=== PATIENT | female | born 1965 | race Caucasian/White ===

== ENCOUNTER 2023-07-25 10:17 | Outpatient (OUT) | payer OTHER, SELFPAY ==
--- NOTE | 2023-07-25 10:31 | US_ITS ---
[address] [address] Patient Name: NIDIA RICHTER MRN: [id number] date: 1965 Sex: F Assigned Patient Location: Current Patient Location: [facility] Accession/Order Number: [id number] Exam Date: 07/25/2023 10:32 Report Date: 07/25/2023 13:17 At the request of: ZULY GREENWOOD Procedure: US carotid duplex BI EXAMINATION: US carotid duplex BI HISTORY: Atherosclerotic Heart Disease I25.10 COMPARISON: No relevant comparison available. TECHNIQUE: Duplex Doppler ultrasound analysis of carotid and vertebral arteries. . Bilateral carotid arterial duplex examination was performed using B-mode, color flow and spectral analysis. Carotid stenosis is reported according to validated velocity parameters, similar to NASCET criteria. FINDINGS: RIGHT CAROTID ARTERY Moderate plaque, 81% flow stenosis mid bulb Subclavian: PSV: 55.5 cm/s cm/s EDV: 9.2 cm/s cm/s CCA: Prox: PSV: 35.9 cm/s cm/s EDV: 20.1 cm/s cm/s Mid: PSV: 35.4 cm/s cm/s EDV: 22.8 cm/s cm/s Distal: PSV: 34.3 cm/s cm/s EDV: 21.2 cm/s cm/s BULB: PSV: 24.4 cm/s cm/s EDV: 15.7 cm/s cm/s ICA: Prox: PSV: 41.4 cm/s cm/s EDV: 15.7 cm/s cm/s Mid: PSV: 33.2 cm/s cm/s EDV: 16.8 cm/s cm/s Distal: PSV: 38.7 cm/s cm/s EDV: 13.5 cm/s cm/s ECA: PSV: 43.8 cm/s cm/s EDV: 16.8 cm/s cm/s VERTEBRAL: PSV: 50.5 cm/s cm/s EDV: 0.0 cm/s cm/s, antegrade ICA/CCA ratio: PSV: 1.2 EDV: 0.7 LEFT CAROTID ARTERY Moderate Plaque Subclavian: PSV: cm/s EDV: CCA: Prox: PSV: 59.2 cm/s cm/s EDV: 27.4 cm/s Mid: PSV: 75.7 cm/s cm/s EDV: 34.0 cm/s Distal: PSV: 71.3 cm/s cm/s EDV: 26.3 cm/s BULB: PSV: 65.8 cm/s cm/s EDV: 24.1 cm/s ICA: Prox: PSV: 89.2 cm/s cm/s EDV: 33.5 cm/s Mid: PSV: 106.4 cm/s cm/s EDV: 40.2 cm/s Distal: PSV: 124.2 cm/s cm/s EDV: 46.7 cm/s ECA: PSV: 62.8 cm/s cm/s EDV: 14.4 cm/s VERTEBRAL: PSV: 83.8 cm/s cm/s EDV: 24.1 cm/s , antegrade ICA/CCA ratio: PSV: 1.7 EDV: 1.8 US/US carotid duplex BI IMPRESSION: 0-49% flow stenosis bilateral carotid arteries Spectral Doppler US Thresholds (Reference: Ousmane EG, et al. Radiology 2000; 214:247-252) Stenosis (%) PSV (cm/sec) VICA/VCCA 0-49 <150 <2.5 50-69 150-225 2.5-4.0 >70 >225 >4.0 Electronically authenticated by: LEXIE MEDINA Date: 07/25/2023 13:17
== END 2023-07-25 10:18 | disposition home or self-care (01) ==
LOC: US 10:20
PROVIDERS: PCP Internal Medicine; Visit Provider Nurse Practitioner
DX: Z12.31 Encounter for screening mammogram for malignant neoplasm of breast (principal); Z80.1 Family history of malignant neoplasm of trachea, bronchus and lung; I25.10 Atherosclerotic heart disease of native coronary artery without angina pectoris; I65.23 Occlusion and stenosis of bilateral carotid arteries; E78.01 Familial hypercholesterolemia
CPT/HCPCS: 77063; 77067; 93880

== ENCOUNTER 2023-07-25 10:22 | Outpatient (OUT) | payer OTHER, SELFPAY ==
--- NOTE | 2023-07-25 10:29 | MM_ITS ---
Patient Name: NIDIA RICHTER MR#: [id number] : 1965 Exam Date: 07/25/2023 Ordering Doctor: DR Mikael Marshall D.O. RADIOLOGY REPORT PROCEDURE: MM TOMOSYNTHESIS SCREENING BI COMPARISON: MG MAMM SCREEN 3D JAYLON CAD, 03/29/2021. MG MAMM SCREEN 3D JAYLON CAD, 04/14/2022. INDICATIONS: Screening Calculator Name NCI Breast Cancer Risk Assessment Tool 5 Year Breast Cancer Risk 1.00% Lifetime Breast Cancer Risk 5.60% Personal Breast Cancer No Personal Ovarian Cancer No Treatments None Family Cancers Father with lung cancer at age 64. LOCATION: [facility] BREAST COMPOSITION: Scattered areas fibroglandular density. FINDINGS: DIAGNOSTIC CATEGORY 1--NEGATIVE. NO CHANGE FROM COMPARISON ASSESSMENT. Scattered benign-appearing calcifications are present. Scattered benign-appearing lymph nodes are present. RIGHT BREAST: No significant suspicious finding. LEFT BREAST: No significant suspicious finding. RECOMMENDATIONS: ROUTINE MAMMOGRAM AND CLINICAL EVALUATION IN 12 MONTHS. PLEASE NOTE: A NORMAL MAMMOGRAM DOES NOT EXCLUDE THE POSSIBILITY OF BREAST CANCER. A CLINICALLY SUSPICIOUS PALPABLE LUMP SHOULD BE BIOPSIED. Dictated by: Christos Hedrick MD on 07/25/2023 at 13:05 Approved by: Christos Hedrick MD on 07/25/2023 at 13:07
== END 2023-07-25 10:23 | disposition home or self-care (01) ==
LOC: MAMMO 10:25
PROVIDERS: PCP Internal Medicine; Visit Provider Internal Medicine
DX: Z12.31 Encounter for screening mammogram for malignant neoplasm of breast (principal); Z80.1 Family history of malignant neoplasm of trachea, bronchus and lung
CPT/HCPCS: 77063; 77067

== ENCOUNTER 2023-10-12 08:47 | Outpatient (OUT) | payer OTHER, SELFPAY ==
--- OUTSIDE RECORDS SUMMARY | 2023-10-12 08:56 | XMS_ITS | CCD ---
Author Organization [facility] Inform ion Partnership [facility] Care Team Providers Care Geology Instructor Name Role Phone MIKAEL MCCORMICK Referring Unavailable ROLANDO, MIKAEL Primary Care Unavailable UNKNOWN, PROVIDER Attending Unavailable UNKNOWN, PROVIDER Admitting Unavailable BALL, DR REAL Admitting Unavailable BALL, DR REAL Attending Unavailable BALL, DR REAL Primary Care Unavailable BALL, DR REAL Consulting Unavailable ZIEBER, DR WILLY Dinh Consulting Unavailable MOUKARBEL, DR BOURNE Admitting Unavailable MOUKARBEL, DR BOURNE Attending Unavailable BALL, DR REAL Primary Care Unavailable MOUKARBEL, DR BOURNE Consulting Unavailable BALL, DR REAL Admitting Unavailable BALL, DR REAL Attending Unavailable BALL, DR REAL Primary Care Unavailable BALL, DR REAL Consulting Unavailable MOUKARBEL, DR BOURNE Admitting Unavailable MOUKARBEL, DR BOURNE Attending Unavailable BALL, DR REAL Primary Care Unavailable Rolando, Mikael Unavailable TAYLA BECKER Attending Unavailable Allergies Allergy Classification Reported Allergen(s) Allergy Type Date of Onset Reaction(s) Facility (1 source) HMG-CoA reductase inhibitor Drug allergy Unknown [facility] Other Medications Current Medications Medication Drug Class(es) Dates Sig (Normalized) Sig (Original) amLODIPine 5 mg oral tablet (3 sources) Dihydropyridine Calcium Channel Quinn Start: 08-09-2023 take 5 mg by mouth once daily Amlodipine Active 5 MG PO Daily August 09, 2023 12:00am take 1 tablet by sharon th every twenty-four hours amLODIPine Besylate 5 MG 1 tablet Orally Once a day Active clopidogrel 75 mg oral tablet (3 sources) [id number] Platelet Inhibitor Start: 08-09-2023 take 75 mg by mouth once daily Clopidogrel Active 75 MG PO Daily August 09, 2023 12:00am take 1 tablet by sharon th every twenty-four hours Clopidogrel Bisulfate 75 MG 1 tablet Orally Once a day Active ezetimibe 10 mg oral tablet (3 sources) Dietary Cholesterol Absorption Inhibitor Start: 08-09-2023 take 10 mg by mouth once daily Ezetimibe Active 10 MG PO Daily August 09, 2023 12:00am take 1 tablet by sharon th every twenty-four hours Zetia 10 MG 1 tablet Orally Once a day Active 24 hr isosorbide mononitrate 120 mg extended release oral tablet (3 sources) Nitrate Vasodilator Start: 08-10-2023 take 120 mg by mouth once daily Isosorbide Mononitrate Active 120 MG PO Daily August 10, 2023 12:00am Imdur Active 24 hr metoprolol succinate 50 mg extended release oral tablet (3 sources) beta-Adrenergic Quinn Start: 08-09-2023 take 50 mg by mouth once daily Metoprolol Succinate Active 50 MG PO Daily August 09, 2023 12:00am take 1 tablet by sharon th every twenty-four hours Metoprolol Succinate ER 50 MG 1 tablet Orally Once a day Active 12 hr ranolazine 500 mg extended release oral tablet (3 sources) Anti-anginal Start: 08-10-2023 take 500 mg by mouth every twelve hours Ranolazine Active 500 MG PO Every 12 hours August 10, 2023 12:00am Ranexa Active rosuvastatin calcium 40 mg oral tablet (3 sources) HMG-CoA Reductase Inhibitor Start: 08-09-2023 take 40 mg by mouth once daily Rosuvastatin Active 40 MG PO Daily August 09, 2023 12:00am take 1 tablet by sharon th every twenty-four hours Crestor 40 MG 1 tablet Orally Once a day Active Problems Problem Classification Problem Date Documented Da te Episodic/Chronic Chronic obstructive pulmonary disease and bronchiectasis (2 sources) Chronic bronchitis; Translations: [Unspecified chronic bronchitis] 08-08-2023 Chronic Conduction disorders (2 sources) Left bundle-branch block, unspecified; Translations: [Left bundle-branch block, unspecified] Onset: 02-27-2022 Chronic Coronary atherosclerosis and other heart disease (8 sources) Coronary arteriosclerosis; Translations: [Atherosclerotic heart disease of enterprise coronary artery without angina pectoris] Onset: 08-06-2023 Chronic Disorders of lipid metabolism (13 sources) Mixed hyperlipidemia; Translations: [Pure hypercholesterolemi a] Onset: 11-19-2021 Chronic Essential hypertension (10 sources) Hypertensive disorder; Translations: [Essential (primary) hypertension] Onset: 02-27-2022 Chronic Occlusion or stenosis of precerebral arteries (5 sources) Right carotid artery stenosis; Translations: [Occlusion and stenosis of right carotid artery] Onset: 06-23-2022 Chronic Other circulatory disease (3 sources) Stricture of artery; Translations: [Stricture of artery] Onset: 08-06-2023 Chronic Other circulatory disease (3 sources) Stricture of artery; Translations: [Stricture of artery] Onset: 06-23-2022 Chronic Other circulatory disease (1 source) Subclavian artery stenosis; Translations: [Stricture of artery] 08-09-2023 Chronic Other nutritional; endocrine; and metabolic disorders (1 source) Overweight; Translations: [Overweight] 08-10-2023 Episodic Other nutritional; endocrine; and metabolic disorders (1 source) Overweight; Translations: [Overweight] 08-10-2023 Episodic Other screening for suspected conditions (not mental disorders or infectious disease) (5 sources) Encounter for screening mammogram for malignant neoplasm of breast; Translations: [ENC SCR MAMMO MALIG NEOPLASM BREAST] Onset: 04-14-2022 Episodic Peripheral and visceral atherosclerosis (5 sources) Intermittent claudication of bilateral lower limbs co-occurrent and due to atherosclerosis; Translations: [Atherosclerosis of enterprise arteries of extremities with intermittent claudication, bilateral legs] Chronic Residual codes; unclassified (1 source) Family history of malignant neoplasm of trachea, bronchus and lung; Translations: [FAM HX MALIG NEOPLSM TRACH BRON LNG] Onset: 04-19-2022 Episodic Sprains and strains (2 sources) Strain of rotator cuff of shoulder; Translations: [Strain of muscle(s) and tendon(s) of the rotator cuff of unspecified shoulder, initial encounter] 08-10-2023 Episodic Substance-related disorders (7 sources) Tobacco user; Translations: [Nicotine dependence, cigarettes, uncomplicated] Chronic Results Test Name Value Interpretation Reference Range Facil ity Office Visiton 08-06-2023 Follow-up visit [id number] Kalee Richter 1965 F Date Provider Department Center 08/06/2023 Shelly-TAYLA BECKER [facility] Family History Problem Relation Age of Onset Hypertension Father Lung cancer Father Coronary artery disease Brother Heart failure Brother Atrial fibrillation Brother Family Status - Relation Status Age at Father Brother Level of Service:47510 [place] OFFICE/OUTPATIENT ESTABLISHED LOW MDM 20 MIN Normal [facility] 36on 07-30-2023 36 Regarding carotid duplex performed on 07/25/2023: MATTHEW Barahona MA Let her know carotid US looks good- no concerns, continue all meds Patient has apt with Dr. Becker on 08/06/2023. Normal [facility] MG MAMM SCREEN 3D JAYLON CADon 04-14-2022 MG MAMM SCREEN 3D JAYLON CAD Patient: KALEE RICHTER Exam Date: 04/14/2022 : 1965 Gender:F Ordering : DR MIKAEL MCCORMICK D.O. Admission #: [id number] Family : Order #: [id number] CLICK HERE TO VIEW EXAM RADIOLOGY REPORT PROCEDURE: MAMMOGRAM SCREENING 3D BILATERAL CAD COMPARISON: MG MAMM SCREEN 3D JAYLON CAD, 03/29/2021. MG MAMM JAYLON SCRN W CAD DIG, 04/25/2016. INDICATIONS: Screening mammography Calculator Name NCI Breast Cancer Risk Assessment Tool 5 Year Breast Cancer Risk 0.90% Lifetime Breast Cancer Risk 5.70% Personal Breast Cancer No Personal Ovarian Cancer No Treatments None Family Cancers Father with lung cancer at age 64. LOCATION: The BREAST COMPOSITION: Scattered areas fibroglandular density. FINDINGS: DIAGNOSTIC CATEGORY 1--NEGATIVE. RIGHT BREAST: No significant suspicious finding. No significant change has occurred. LEFT BREAST: No significant suspicious finding. No significant change has occurred. RECOMMENDATIONS: ROUTINE MAMMOGRAM AND CLINICAL EVALUATION IN 12 MONTHS. PLEASE NOTE: A NORMAL MAMMOGRAM DOES NOT EXCLUDE THE POSSIBILITY OF BREAST CANCER. A CLINICALLY SUSPICIOUS PALPABLE LUMP SHOULD BE BIOPSIED. Dictated by: Willy Duarte M.D. on 04/17/2022 at 10:39 Approved by: Willy Duarte M.D. on 04/17/2022 at 10:47 Normal The [facility] AUTO DIFFon 04-08-2022 BASO # 0.1 103/ul Normal 0.0-0.1 [facility] Comment on above: Performed By: #### C BC #### Laboratory [address] [address] [address] Malick Larkin Basophils/100 WBC (Bld) 0.9 % Normal 0.2-2.0 [facility] Comment on above: Performed By: #### C BC #### Laboratory [address] [place] [address] Dr. Malick Larkin EO # 0.1 103/ul Normal 0.0-0.7 [facility] Comment on above: Performed By: #### C BC #### Laboratory [address] [place] [address] Dr. Malick Larkin Eosinophils/100 WBC (Bld) 1.3 % Normal 0.9-7.0 [facility] Comment on above: Performed By: #### C BC #### Laboratory [address] [place] [address] Dr. Malick Larkin Erythrocyte distribution width (RBC) [Ratio] 13.2 % Normal 11.0-15.0 [facility] Comment on above: Performed By: #### C BC #### Laboratory [address] [place] [address] Dr. Malick Larkin Hematocrit (Bld) [Volume fraction] 44.7 % Normal 36.0-48.0 [facility] Comment on above: Performed By: #### C BC #### Laboratory [address] [place] [address] Dr. Malick Larkin Hemoglobin (Bld) [Mass/Vol] 15.0 g/dL Normal 12.0-16.0 [facility] Comment on above: Performed By: #### C BC #### Laboratory [address] [place] [address] Dr. Malick Larkin IG # 0.02 10e3/ul Normal 0.00-0.03 [facility] Comment on above: Performed By: #### C BC #### Laboratory [address] [place] [address] Dr. Malick Larkin IG % 0.3 % Normal 0.0-0.5 [facility] Comment on above: Performed By: #### C BC #### Laboratory [address] [place] [address] Dr. Malick Larkin LYMPH # 2.1 103/ul Normal 1.2-3.8 [facility] Comment on above: Performed By: #### C BC #### Laboratory [address] [place] [address] Dr. Malick Larkin Lymphocytes/100 WBC (Bld) 31.2 % Normal 20.5-60.0 [facility] Comment on above: Performed By: #### C BC #### Laboratory [address] [place] [address] Dr. Malick Larkin MANUAL DIFF REQ NO Normal [facility] Comment on above: Performed By: #### C BC #### Laboratory [address] [place] [address] Dr. Malick Larkin MCH (RBC) [Entitic mass] 28.8 pg Normal 26.7-34.0 [facility] Comment on above: Performed By: #### C BC #### Laboratory [address] [place] [address] Dr. Malick Larkin MCHC (RBC) [Mass/Vol] 33.6 g/dL Normal 29.9-35.2 [facility] Comment on above: Performed By: #### C BC #### Laboratory [address] [place] [address] Dr. Malick Larkin MCV (RBC) [Entitic vol] 86.0 fL Normal 81.0-99.0 [facility] Comment on above: Performed By: #### C BC #### Laboratory [address] [place] [address] Dr. Malick Larkin MONO # 0.6 103/ul Normal 0.3-0.8 [facility] Comment on above: Performed By: #### C BC #### Laboratory [address] [place] [address] Dr. Malick Larkin Monocytes/100 WBC (Bld) 8.2 % Normal 1.7-12.0 The Comment on above: Performed By: #### C BC #### Laboratory [address] [place] [address] Dr. Malick Larkin NEUT # 4.0 103/ul Normal 1.4-6.5 [facility] Comment on above: Performed By: #### C BC #### Laboratory [address] [address] [address] Malick Larkin Neutrophils/100 WBC (Bld) 58.1 % Normal 43.0-75.0 [facility] Comment on above: Performed By: #### C BC #### Laboratory [address] [place] [address] Dr. Malick Larkin Platelet mean volume (Bld) [Entitic vol] 10.1 fL Normal 9.5-13.5 [facility] Comment on above: Performed By: #### C BC #### Laboratory [address] [place] [address] Dr. Malick Larkin PLT 158 103/ul Normal 150-450 [facility] Comment on above: Performed By: #### C BC #### Laboratory [address] [place] [address] Dr. Malick Larkin RBC 5.20 106/ul Normal 4.20-5.40 [facility] Comment on above: Performed By: #### C BC #### Laboratory [address] [place] [address] Dr. Malick Larkin WBC 6.8 103/ul Normal 4.0-11.0 [facility] Comment on above: Performed By: #### C BC #### Laboratory [address] [place] [address] Dr. Malick Larkin PROF 14(COMP METB)on 022 Albumin [Mass/Vol] 3.6 g/dL Normal 3.4-5.0 [facility] Comment on above: Performed By: #### C MP #### Laboratory [address] [place] [address] Dr. Malick Larkin Albumin/Globulin [Mass ratio] 0.8 {ratio} Normal [facility] Comment on above: Performed By: #### C MP #### Laboratory [address] [place] [address] Dr. Malick Larkin ALP [Catalytic activity/Vol] 89 U/L Normal 46-116 [facility] Comment on above: Performed By: #### C MP #### Laboratory [address] [address] [address] Malick Larkin ALT [Catalytic activity/Vol] 20 U/L Normal 14-59 The Comment on above: Performed By: #### C MP #### Laboratory [address] [address] [address] Malick Larkin Anion gap [Moles/Vol] 9.5 mmol/L Normal [facility] Comment on above: Performed By: #### C MP #### Laboratory [address] [address] [address] Malick Larkin AST [Catalytic activity/Vol] 16 U/L Normal 15-37 The Comment on above: Performed By: #### C MP #### Laboratory [address] [place] [address] Dr. Malick Larkin Bilirubin [Mass/Vol] 0.8 mg/dL Normal 0.2-1.0 [facility] Comment on above: Performed By: #### C MP #### Laboratory [address] [place] [address] Dr. Malick Larkin Calcium [Mass/Vol] 9.0 mg/dL Normal 8.5-10.1 [facility] Comment on above: Performed By: #### C MP #### Laboratory [address] [place] [address] Dr. Malick Larkin Chloride [Moles/Vol] 102 mmol/L Normal 98-107 The Comment on above: Performed By: #### C MP #### Laboratory [address] [place] [address] Dr. Malick Larkin CO2 [Moles/Vol] 28.3 mmol/L Normal 21.0-32.0 [facility] Comment on above: Performed By: #### C MP #### Laboratory [address] [address] [address] Malick Larkin Creatinine [Mass/Vol] 0.77 mg/dL Normal 0.55-1.02 [facility] Comment on above: Performed By: #### C MP #### Laboratory [address] [address] [address] Malick Larkin EGFR-AF SAMOAN >60 Normal >=60 [facility] Comment on above: Performed By: #### C MP #### Laboratory [address] [address] [address] Malick Larkin EGFR-NON AF SAMOAN >60 Normal >=60 [facility] Comment on above: Performed By: #### C MP #### Laboratory [address] [address] [address] Malick Larkin Globulin (S) [Mass/Vol] 4.3 g/dL Normal [facility] Comment on above: Performed By: #### C MP #### Laboratory [address] [place] [address] Dr. Malick Larkin Glucose [Mass/Vol] 93 mg/dL Normal 74-106 [facility] Comment on above: Performed By: #### C MP #### Laboratory [address] [place] [address] Dr. Malick Larkin Potassium [Moles/Vol] 4.8 mmol/L Normal 3.5-5.1 [facility] Comment on above: Performed By: #### C MP #### Laboratory [address] [place] [address] Dr. Malick Larkin Protein [Mass/Vol] 7.9 g/dL Normal 6.4-8.2 [facility] Comment on above: Performed By: #### C MP #### Laboratory [address] [place] [address] Dr. Malick Larkin Sodium [Moles/Vol] 135 mmol/L Critically low 136-145 [facility] Comment on above: Performed By: #### C MP #### Laboratory [address] [address] [address] Malick Larkin Urea nitrogen [Mass/Vol] 11.0 mg/dL Normal 7.0-18.0 [facility] Comment on above: Performed By: #### C MP #### Laboratory [address] [address] [address] Malick Larkin Urea nitrogen/Creatinine [Mass ratio] 14.3 mg/mg Normal [facility] Comment on above: Performed By: #### C MP #### Laboratory [address] [address] [address] Malick Larkin LIPID PROFILEon 11-19-2021 CHOL-HDL RATIO NORM SEE BELOW Normal [facility] Comment on above: Result Comment: 3.3 - 4.4 LOW RISK 4.4 - 7.1 AVERAGE RISK 7.1 - 11.0 MODERATE RISK >11.0 HIGH RISK Performed By: #### L IPID #### Laboratory [address] [address] [address] Malick Larkin Cholesterol [Mass/Vol] 136 mg/dL Normal <=200 [facility] Comment on above: Performed By: #### L IPID #### Laboratory [address] [address] [address] Malick Larkin Cholesterol in HDL [Mass/Vol] 36 mg/dL Critically low 40-60 [facility] Comment on above: Performed By: #### L IPID #### Laboratory [address] [address] [address] Malick Larkin Cholesterol in LDL [Mass/Vol] 75.0 mg/dL Normal [facility] Comment on above: Performed By: #### L IPID #### Laboratory [address] [address] [address] Malick Larkin Cholesterol.total/C holesterol in HDL [Mass ratio] 3.8 {ratio} Normal [facility] Comment on above: Performed By: #### L IPID #### Laboratory [address] [address] [address] Malick Larkin HDL NORMAL > or = 60 mg/dl - LOW CARDIOVASCULAR RISK <40 mg/dl - HIGH CARDIOVASCULAR RISK Normal [facility] Comment on above: Performed By: #### L IPID #### Laboratory [address] [id number] Malick Larkin LDL CALC NORMAL SEE BELOW Normal [facility] Comment on above: Result Comment: <100 mg/dl OPTIMAL 100 - 129 mg/dl NEAR OR ABOVE OPTIMAL 130 - 159 mg/dl BORDERLINE HIGH 160 - 189 mg/dl HIGH >190 mg/dl VERY HIGH Performed By: #### L IPID #### Laboratory [address] [address] [address] Malick Larkin Triglyceride [Mass/Vol] 125 mg/dL Normal <=150 [facility] Comment on above: Performed By: #### L IPID #### Laboratory [address] [place] [address] Dr. Malick Larkin VLDL CALC 25.0 mg/dL Normal [facility] Comment on above: Performed By: #### L IPID #### Laboratory [address] [place] [address] Dr. Malick Larkin Vital Signs Date Time Vital Sign Value Performing Clinician Facility 08-10-2023 08:45-0400 Body height 165.1 cm [facility] 08-10-2023 08:45-0400 Body mass index (BMI) [Ratio] 28 kg/m2 [facility] 08-10-2023 08:45-0400 Body weight 76.37 kg [facility] 08-10-2023 08:45-0400 Diastolic blood pressure 83 mm[Hg] [facility] 08-10-2023 08:45-0400 Heart rate 62 /min [facility] 08-10-2023 08:45-0400 Respiratory rate 12 /min [facility] 08-10-2023 08:45-0400 Systolic blood pressure 127 mm[Hg] [facility] 02-08-2023 08:30-0400 Body height 165.1 cm Mikael Ball Other [place] [facility] Other 02-08-2023 08:30-0400 Body mass index (BMI) [Ratio] 27.59 kg/m2 Mikael Ball Other [place] [facility] Other 02-08-2023 08:30-0400 Body weight 75.21 kg Mikael Ball Other [place] [facility] Other 02-08-2023 08:30-0400 Diastolic blood pressure 77 mm[Hg] Mikael Ball Other [facility] Other 02-08-2023 08:30-0400 Respiratory rate 12 /min Mikael Ball Other [facility] Other 02-08-2023 08:30-0400 Systolic blood pressure 124 mm[Hg] Mikael Ball Other [facility] Other 08-08-2022 16:30-0400 Body height 165.1 cm Mikael Ball Other [facility] Other 08-08-2022 16:30-0400 Body mass index (BMI) [Ratio] 28.12 kg/m2 Mikael Ball Other [facility] Other 08-08-2022 16:30-0400 Body weight 76.66 kg Mikael Ball Other [facility] Other 08-08-2022 16:30-0400 Diastolic blood pressure 74 mm[Hg] Mikael Ball Other [facility] Other 08-08-2022 16:30-0400 Respiratory rate 12 /min Mikael Ball Other [facility] Other 08-08-2022 16:30-0400 Systolic blood pressure 112 mm[Hg] Mikael Ball Other [facility] Other Encounters Encounter Date Encounter Type Care Provider Facility Start: 08-10-2023 End: 08-10-2023 ambulatory [facility] Work Phone: Start: 08-10-2023 End: 08-10-2023 Patient encounter procedure [facility] Work Phone: Start: 08-06-2023 End: 08-06-2023 ambulatory [facility] Start: 02-08-2023 End: 02-08-2023 ambulatory Mikael Mccormick Other [facility] Other Start: 02-08-2023 Encounter for genera l adult medical examination without abnormal findings Mikael Mccormick [facility] Start: 02-08-2023 Periodic preventive med est patient 40-64yrs Mikael Mccormick [facility] Start: 08-08-2022 End: 08-08-2022 ambulatory Mikael Mccormick Other [facility] Other Start: 08-08-2022 Office outpatient vi sit 25 minutes Mikael Mccormick [facility] Start: 04-14-2022 End: 04-15-[address] MIKAEL MCCORMICK Facility:[facility] Start: 04-12-2022 Encounter for genera l adult medical examination without abnormal findings DR MIKAEL MCCORMICK [facility] Start: 04-08-2022 End: 04-09-[address] MIKAEL MCCORMICK Facility:[facility] Start: 04-08-2022 End: 04-09-2022 Encounter for general adult medical examination without abnormal findings DR MIKAEL MCCORMICK Facility:[facility] Start: 11-19-2021 End: 11-20-[address] TAYLA BECKER Facility:[facility] Start: 06-03-[address] TAYLA BECKER Fac ility:[facility] Start: 03-14-2021 End: 03-15-2021 ambulatory MIKAEL MCCORMICK Facility:[facility] Payers Date Payer Category Payer Private Health Insurance [id number] 1965 Unknown [id number] 1965 Unknown [id number] 2.16.84 [id number] 1965 Unknown [id number] [id number] [id number] 1965 Unknown [id number] [id number] [id number] 1965 Unknown [id number] [id number] [id number] 1960 Self-pay 1960 Unknown [id number] Unknown [id number] Social History Date Type Detail Facility Sex Assigned At [facility] Other Start: 08-09-2023 Tobacco smoking stat [facility] Smoker (finding) [facility] Start: 1965 Sex Assigned At Female F [facility] Progress note 08-06-2023 Note Date & Type Note Facility 08-06-2023 Note [place] [facility] Subjective Kalee Richter is a 57 y.o. year old female patient being seen for 1 year follow up CAD, carotid artery stenosis, subclavian artery stenosis, and hyperlipidemia. She had carotid US 2 weeks ago. She's been out of amlodipine for awhile, not sure how long. Says her VERDIN remains unchanged from last year's visit in Jun 2022. No recent labs. Patient Active Problem List Diagnosis Cardiovascular stress test abnormal Carotid bruit Chest pain Coronary arteriosclerosis Disorder of lipid metabolism Dyspnea Essential hypertension Hyperlipidemia Left bundle branch block Tobacco dependence syndrome Carotid artery stenosis Subclavian artery stenosis, right (CMS/HCC) Family History Problem Relation Name Age of Onset Hypertension Father Lung cancer Father Coronary artery disease Brother Heart failure Brother Atrial fibrillation Brother Social History Tobacco Use Smoking status: Every Day Packs/day: .5 Types: Cigarettes Smokeless tobacco: Never Substance Use Topics Alcohol use: Yes Comment: occasional HPI Visit of 05/01/2019: Kalee is a 53-year-old woman who is seen in follow-up. 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 Right subclavian artery stenosis by recent ultrasound with right arm symptoms with activity. She continues to have chest pain only at the end of the day, relieved by rest. This is located in the center of the chest. She reports that during the morning and noon time she has no significant chest pain symptoms. She has no significant shortness of breath. She is off ASA due to bruising. Cardiac cath 09/02/2015: 1. Occluded right coronary artery with significant left and right collaterals. 2. 40% stenosis in mid left anterior descending. 3. Mild plaque disease at the ostium of the right subclavian artery. 02/22/2016: 1. Successful balloon angioplasty and stent placement in bilateral common iliac arteries and reduction of high-grade stenosis to 0 using a 9 x 39 in the right common, 7x 59 and an 8 x 19 in the left common iliac artery. 2. Moderate stenosis in the left superficial femoral artery. Echo in 2016: LVEF 45-50%. Update 07/08/2019: She is seen in follow-up. At last visit of 05/01/2019, she was still having symptoms of angina. I asked her to take the isosorbide mononitrate later in the day and see if that helps with symptoms. She also had very elevated LDL levels [180] and because of that I started her on Repatha. Her LDL came down to 65. She continues to smoke. She continues to have angina with mild to moderate exertion. She continues to have significant weakness of the right arm with use. She also reports that she gets tunnel vision with continued use of the right arm. 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 Blood testing 07/05/2019: LFTs normal, cholesterol 114, HDL 40, triglycerides 45, LDL 65 CTA neck 05/30/2019: Calcified and noncalcified plaque right carotid bulb and proximal right internal carotid artery. Approximately 80% stenosis based on cross-sectional diameter. Calcification does decrease the accuracy of calculation of percent stenosis. Atherosclerotic calcification in the V4 segment of the right and left vertebral arteries without significant stenosis. Atherosclerotic calcification left common carotid and proximal left internal carotid artery no significant stenosis. Update 01/07/2020: She is seen in follow up via telemedicine. She continues to have chest pain on exertion. No pain at rest. Pain is in the center of the chest. At last visit I increased imdur to 60 mg daily. She says it has helped with chest pain but she feels it in the evening. She continues to have symptoms of weakness in the right arm with use. She has dyspnea on exertion. She continues to smoke. Echocardiogram 07/24/2019: Normal size left ventricle. Global left ventricular systolic function is normal. The EF is 65 % visually. The LV wall thickness was mildly increased. No regional wall motion abnormality. Normal diastolic function. The right ventricle is normal in size. Normal right ventricular systolic function. Unable to assess right sided pressures due to lack of measurable tricuspid regurgitation. Update 02/25/2020: She is seen in follow up via telemedicine. At last visit I increased imdur to 120 mg daily and stopped losartan. She says it has helped with chest pain but she still feels it with exertion. No pain at rest. Pain is in the center of the chest. She says the right arm has not bothered a lot her recently, it still gets tired with use, she rests it and then she can use it again. She has dyspnea on exertion. She continues to smoke. Update 06/14/2020: She is seen in follow-up. She reports that since last visit of March 09 (more content not included)... [facility] Evaluation note 02-08-2023 Note Date & Type Note Facility 02-08-2023 Evaluation note Encounter Date Diagnosis Assessment Notes Jan, Wellness examination (ICD-10 - Z00.00) Healthy diet and exercise. Reviewed age-appropriate preventive testing recommended. Jan, ASHD (arteriosclerotic heart disease) (ICD-10 - I25.10) This patient is stable without activity related CP, dyspnea or lightheadedness. They are instructed to continue exercise and AHA diet plan. Continue secondary prevention measures. Jan, Hyperlipidemia type II (ICD-10 - E78.01) Instructed on diet and exercise with continued statin therapy.Discussed the beneficial effects of lowering cholesterol in reducing the risk for cerebrovascular and cardiovascular disease. Jan, Primary hypertension (ICD-10 - I10) This patient is instructed to consume a healthy, low-fat, low-salt diet. They are also encouraged to continue exercise to achieve/maintain a normal BMI. Jan, Atherosclerosis of enterprise arteries of extremities with intermittent claudication, bilateral legs (ICD-10 - I70.213) Instructed to inspect feet daily for cuts. Walk daily until develop pain then rest and start again Continue primrary prevention measures. Jan, Subclavian arterial stenosis (ICD-10 - I77.1) Asymptomatic. Monitor for arm claudication, skin color/temperature change. Continue primary prevention measures Jan, Cigarette nicotine dependence, uncomplicated (ICD-10 - F17.210) This patient has been encouraged to quit tobacco use immediately. They are aware of the hazards associated with tobacco use, including but not limited to respiratory infections, vascular disease and cancers. Jan, Screening mammogram for breast cancer (ICD-10 - Z12.31) Instructed patient on monthly SBE and yearly mammograms. [facility] Other Evaluation note 08-08-2022 Note Date & Type Note Facility 08-08-2022 Evaluation note Encounter Date Diagnosis Assessment Notes Jul, ASHD (arteriosclerotic heart disease) (ICD-10 - I25.10) This patient is stable without activity related CP, dyspnea or lightheadednes s. They are instructed to continue exercise and AHA diet plan. Jul, HTN (hypertension) (ICD-10 - I10) This patient is instructed to consume a healthy, low-fat, low-salt diet. They are also encouraged to continue exercise to achieve/mainta in a normal BMI. Jul, Atherosclerosis of enterprise arteries of extremities with intermittent claudication, bilateral legs (ICD-10 - I70.213) Continue statin and antiplatelet therapy Walk daily until develop pain. Jul, Cigarette nicotine dependence, uncomplicated (ICD-10 - F17.210) This patient has been encouraged to quit tobacco use immediately. They are aware of the hazards associated with tobacco use, including but not limited to respiratory infections, vascular disease and cancers. Jul, Hyperlipidemia type II (ICD-10 - E78.01) Diet and exercise with continued statin therapy. Jul, Subclavian arterial stenosis (ICD-10 - I77.1) Asymptomatic. No change in temperature or color. No claudication symptoms [facility] Other Evaluation note Note Date & Type Note Facility Evaluation note Diagnosis Onset Date ASHD (arteriosclerotic heart disease) acute Chronic bronchitis acute Elevated cholesterol acute Hypertension acute Nicotine dependence acute Overweight acute Rotator cuff strain acute [facility] Work Phone: History general Narrative - Reported Note Date & Type Note Facility History general Narrative - Reported Type Medical History Atherosclerosis of n ative arteries of extremities with intermittent claudication, bilateral legs Medical History Subclavian arterial stenosis Medical History Cigarette nicotine d ependence, uncomplicated Medical History Hyperlipidemia type II Medical History Carotid stenosis, right Medical History ASHD (arteriosclerotic heart dis ease) Medical History HTN (hypertension) Surgical History X2 Surgical History FRITZ / BSO Surgical History ORIF LEFT WRIST Surgical History LHC Surgical History RCA Surgical History PERIPHERAL ANGIOGRAPHY W/ AORTA Surgical History B/L VICTORIANO STENTS Surgical History ESWL Hospitalization History SEE SURGICAL HX [facility] Other Summary Purpose Family History Relationship Condition Age at Onset Recorded Date/T jalen father Heart disease Unknown Malignant neoplasm Unknown Hypertension Unknown Advance Directives Advance Directive Response Recorded Date/ Time Advance Directives No June 12, 2023 4:14pm Chief Complaint and Reason for Visit Chief Complaint 6 month follow up Reason for Visit ASHD (arteriosclerot ic heart disease) Chronic bronchitis Elevated cholesterol Hypertension Nicotine dependence Overweight Rotator cuff strain Additional Source Comments INFORMATION SOURCE (unrecogn ized section and content) DATE CREATED AUTHOR 03/19/2021 [facility] DATE CREATED AUTHOR AUTHOR'S ORGANIZ ATION 04/20/2022 [facility] DATE CREATED AUTHOR AUTHOR'S ORGANIZ ATION 08/07/2023 [facility] REASON FOR VISIT (unrecogniz ed section and content) 6 MONTH FOLLOW UPWellness ex am Care Teams (unrecognized sec tion and content) Team Status: Active Member Role Status Dates Mikael Mccormick DO Primary Care Provider Active Team Status: Inactive Member Role Status Dates Mikael Mccormick DO Primary Care Provide r, Attending Provider Active Start: August 10, 2023 End: August 10, 2023 Goals (unrecognized section and content) Goals may be documented in a n alternate section FOR RECORDS PERTAINING TO PATIENTS WHO ARE OR HAVE BEEN ENROLLED IN A CHEMICAL DEPENDENCY/SUBSTANCEABUSE PROGRAM, SOME INFORMATION MAY BE OMITTED. This clinical summary was aggregated from multiple sources. Caution should be exercised in using it in the provision of clinical care. This summary normalizes information from multiple sources, and as a consequence, information in this document may materially change the coding, format and clinical context of patient data. In addition, data may be omitted in some cases. CLINICAL DECISIONS SHOULD BE BASED ON THE PRIMARY CLINICAL RECORDS. [employer] provides no warranty or guarantee of the accuracy or completeness of information in this document.
[2023-10-12 09:06] LABS: Basophils Absolute Auto 0.1 10^3/uL (0.0-0.1); Eosinophils Absolute Auto 0.2 10^3/uL (0.0-0.7); Hemoglobin 13.6 g/dL (12.0-16.0); Immature Granulocytes Abs Auto 0.02 10^3/uL (0.00-0.03); Immature Granulocytes Pct Auto 0.3 % (0.0-0.5); Lymphocytes Absolute Auto 2.4 10^3/uL (1.2-3.8); Mean Corpuscular HGB Conc 33.2 g/dL (29.9-35.2); Mean Corpuscular Hemoglobin 29.8 pg (26.7-34.0); Mean Corpuscular Volume 89.7 fL (81.0-99.0); Mean Platelet Volume 10.3 fL (9.5-13.5); Monocytes Absolute Auto 0.6 10^3/uL (0.3-0.8); Monocytes Percent Auto 7.7 % (1.7-12.0); Neutrophils Absolute Auto 4.7 10^3/uL (1.4-6.5); Platelet Count 130 10^3/uL (150-450); Red Blood Count 4.57 10^6/uL (4.20-5.40); Red Cell Distribution Width 12.5 % (11.0-15.0); White Blood Count 7.9 10^3/uL (4.0-11.0)
[2023-10-12 10:32] LABS: Alanine Aminotransferase 27 U/L (14-59); Albumin Globulin Ratio 0.9; Albumin Level 3.5 g/dL (3.4-5.0); Alkaline Phosphatase 96 U/L (46-116); Anion Gap 14.7; Aspartate Amino Transferase 21 U/L (15-37); BUN Creatinine Ratio 30.6; Bilirubin Total 0.8 mg/dL (0.2-1.0); Carbon Dioxide 23.4 mmol/L (21.0-32.0); Chloride 105 mmol/L (98-107); Chol HDL Ratio 3.9; Cholesterol 179 mg/dL (<=200); Estimated GFR (African America >60 (>=60); Estimated GFR (Non-African Ame >60 (>=60); Globulin 4.1 g/dL; Glucose 90 mg/dL (74-106); HDL Cholesterol 46 mg/dL (40-60); Potassium 4.1 mmol/L (3.5-5.1); Sodium 139 mmol/L (136-145); Total Protein 7.6 g/dL (6.4-8.2); Triglycerides 55 mg/dL (<=150)
== END 2023-10-12 08:48 | disposition home or self-care (01) ==
LOC: LAB 08:47
PROVIDERS: PCP Internal Medicine; Visit Provider Internal Medicine
DX: Z00.00 Encounter for general adult medical examination without abnormal findings (principal)
CPT/HCPCS: 36415; 80053; 80061; 85025

== ENCOUNTER 2024-11-22 10:54 | Outpatient (OUT) | payer OTHER, SELFPAY ==
--- OUTSIDE RECORDS SUMMARY | 2024-11-22 10:56 | XMS_ITS | CCD ---
Author Organization [facility] ion Partnership [facility] Care Team Providers Care Costume Cutter Name Role Phone MIKAEL MCCORMICK Referring Unavailable JACE, MIKAEL Primary Care Unavailable UNKNOWN, PROVIDER Attending Unavailable UNKNOWN, PROVIDER Admitting Unavailable JACE, DR REAL Admitting Unavailable BALL, DR REAL Attending Unavailable BALL, DR REAL Primary Care Unavailable BALL, DR REAL Consulting Unavailable ZIEBER, DR AURA Dinh Consulting Unavailable MOUKARBEL, DR BOURNE Admitting Unavailable MOUKARBEL, DR BOURNE Attending Unavailable BALL, DR REAL Primary Care Unavailable MOUKARBEL, DR BOURNE Consulting Unavailable BALL, DR REAL Admitting Unavailable BALL, DR REAL Attending Unavailable BALL, DR REAL Primary Care Unavailable BALL, DR REAL Consulting Unavailable MOUKARBEL, DR BOURNE Admitting Unavailable MOUKARBEL, DR BOURNE Attending Unavailable BALL, DR REAL Primary Care Unavailable Jace, Mikael Unavailable TAYLA PLATA Attending Unavailable Allergies Allergy Classification Reported Allergen(s) Allergy Type Date of Onset Reaction(s) Facility (1 source) HMG-CoA reductase inhibitor Drug allergy Unknown [employer] Other Medications Current Medications Medication Drug Class(es) Dates Sig (Normalized) Sig (Original) amLODIPine 5 mg oral tablet (5 sources) Dihydropyridine Calcium Channel Quinn Start: 08-09-2023 take 1 tablet by mouth once daily Amlodipine 5 mg tablet Active 5 MG PO Daily August 09, 2023 12:00am take 1 tablet by sharon th every twenty-four hours amLODIPine Besylate 5 MG 1 tablet Orally Once a day Active clopidogrel 75 mg oral tablet (5 sources) [id number] Platelet Inhibitor Start: 08-09-2023 take 1 tablet by mouth once daily Clopidogrel 75 mg tablet Active 75 MG PO Daily August 09, 2023 12:00am take 1 tablet by sharon th every twenty-four hours Clopidogrel Bisulfate 75 MG 1 tablet Orally Once a day Active ezetimibe 10 mg oral tablet (5 sources) Dietary Cholesterol Absorption Inhibitor Start: 08-09-2023 take 1 tablet by mouth once daily Ezetimibe 10 mg tablet Active 10 MG PO Daily August 09, 2023 12:00am take 1 tablet by sharon th every twenty-four hours Zetia 10 MG 1 tablet Orally Once a day Active 24 hr isosorbide mononitrate 120 mg extended release oral tablet (5 sources) Nitrate Vasodilator Start: 08-10-2023 take 1 tablet by mouth once daily, then take 1 tablet by mouth every twenty-four hours Isosorbide Mononitrate 120 mg tablet extended release 24 hr Active 120 MG PO Daily August 10, 2023 12:00am Imdur Active 24 hr metoprolol succinate 50 mg extended release oral tablet (5 sources) beta-Adrenergic Quinn Start: 08-09-2023 take 1 tablet by mouth once daily Metoprolol Succinate 50 mg tablet extended release 24 hr Active 50 MG PO Daily August 09, 2023 12:00am take 1 tablet by sharon th every twenty-four hours Metoprolol Succinate ER 50 MG 1 tablet Orally Once a day Active 12 hr ranolazine 500 mg extended release oral tablet (5 sources) Anti-anginal Start: 08-10-2023 take 1 tablet by mouth every twelve hours Ranolazine 500 mg tablet extended release 12 hr Active 500 MG PO Every 12 hours August 10, 2023 12:00am Ranexa Active rosuvastatin calcium 40 mg oral tablet (5 sources) HMG-CoA Reductase Inhibitor Start: 08-09-2023 take 1 tablet by mouth once daily Rosuvastatin 40 mg tablet Active 40 MG PO Daily August 09, 2023 12:00am take 1 tablet by sharon th every twenty-four hours Crestor 40 MG 1 tablet Orally Once a day Active Problems Problem Classification Problem Date Documented Da te Episodic/Chronic Chronic obstructive pulmonary disease and bronchiectasis (6 sources) Chronic bronchitis; Translations: [Unspecified chronic bronchitis] 08-08-2023 Chronic Coronary atherosclerosis and other heart disease (12 sources) Coronary arteriosclerosis; Translations: [Atherosclerotic heart disease of pala coronary artery without angina pectoris] Onset: 11-10-2024 Chronic Disorders of lipid metabolism (19 sources) Mixed hyperlipidemia; Translations: [Pure hypercholesterolemi a] Onset: 11-19-2021 Chronic Essential hypertension (16 sources) Hypertensive disorder; Translations: [Essential (primary) hypertension] Onset: 02-27-2022 Chronic Occlusion or stenosis of precerebral arteries (7 sources) Right carotid artery stenosis; Translations: [Occlusion and stenosis of right carotid artery] Onset: 06-23-2022 08-09-2023 Chronic Other circulatory disease (3 sources) Stricture of artery; Translations: [Stricture of artery] Onset: 11-10-2024 Chronic Other circulatory disease (3 sources) Stricture of artery; Translations: [Stricture of artery] Onset: 06-23-2022 Chronic Other circulatory disease (3 sources) Subclavian artery stenosis; Translations: [Stricture of artery] 08-09-2023 Chronic Other nutritional; endocrine; and metabolic disorders (3 sources) Overweight; Translations: [Overweight] 08-10-2023 Episodic Other nutritional; endocrine; and metabolic disorders (3 sources) Overweight; Translations: [Overweight] 08-10-2023 Episodic Other screening for suspected conditions (not mental disorders or infectious disease) (6 sources) Encounter for screening mammogram for malignant neoplasm of breast; Translations: [Patient encounter status] Onset: 04-14-2022 Episodic Peripheral and visceral atherosclerosis (9 sources) Intermittent claudication of bilateral lower limbs co-occurrent and due to atherosclerosis; Translations: [Atherosclerosis of pala arteries of extremities with intermittent claudication, bilateral legs] Onset: 11-10-2024 Chronic Residual codes; unclassified (1 source) Family history of malignant neoplasm of trachea, bronchus and lung; Translations: [FAM HX MALIG NEOPLSM TRACH BRON LNG] Onset: 04-19-2022 Episodic Sprains and strains (5 sources) Strain of rotator cuff of shoulder; Translations: [Strain of muscle(s) and tendon(s) of the rotator cuff of unspecified shoulder, initial encounter] 08-10-2023 Episodic Substance-related disorders (12 sources) Tobacco user; Translations: [Nicotine dependence, cigarettes, uncomplicated] Chronic Comment on above: age started 24, ppd 1 Results Test Name Value Interpretation Reference Range Facil ity Office Visiton 11-10-2024 Follow-up visit [id number] Kalee Richter 1965 F Date Provider Department Center 11/10/2024 TAYLA ENGLISH [facility] Family History Problem Relation Age of Onset Parkinsonism Mother Hypertension Father Lung cancer Father Coronary artery disease Brother Heart failure Brother Atrial fibrillation Brother Family Status - Relation Status Age at Mother Father Brother Level of Service:17102 NC OFFICE/OUTPATIENT ESTABLISHED MOD MDM 30 MIN Normal [facility] MG MAMM SCREEN 3D JAYLON CADon 04-14-2022 MG MAMM SCREEN 3D JAYLON CAD Patient: KALEE RICHTER Exam Date: 04/14/2022 : 1965 Gender:F Ordering : DR MIKAEL MCCORMICK D.O. Admission #: [id number] Family : Order #: [id number] CLICK HERE TO VIEW EXAM RADIOLOGY REPORT [...] lung cancer at age 63. LOCATION: [facility] BREAST COMPOSITION: Scattered areas fibroglandular density. FINDINGS: [...] PALPABLE LUMP SHOULD BE BIOPSIED. Dictated by: Aura Duarte M.D. on 04/17/2022 at 10:39 Approved by: Aura Duarte M.D. on 04/17/2022 at 10:47 Normal [facility] CBC AUTO DIFFon 04-08-2022 BASO # 0.1 103/ul Normal 0.0-0.1 [facility] Comment on above: Performed By: #### C BC #### [facility] [address] [address] [address] Malick Larkin Basophils/100 WBC (Bld) 0.9 % Normal 0.2-2.0 [facility] Comment on above: Performed By: #### C BC #### [facility] [address] [place] [address] Dr. Malick Larkin EO # 0.1 103/ul Normal 0.0-0.7 [facility] Comment on above: Performed By: #### C BC #### [facility] [address] [place] [address] Dr. Malick Larkin Eosinophils/100 WBC (Bld) 1.3 % Normal 0.9-7.0 [facility] Comment on above: Performed By: #### C BC #### [facility] [address] [place] [address] Dr. Malick Larkin Erythrocyte distribution width (RBC) [Ratio] 13.2 % Normal 11.0-15.0 [facility] Comment on above: Performed By: #### C BC #### [facility] [address] [place] [address] Dr. Malick Larkin Hematocrit (Bld) [Volume fraction] 44.7 % Normal 36.0-48.0 [facility] Comment on above: Performed By: #### C BC #### [facility] [address] [place] [address] Dr. Malick Larkin Hemoglobin (Bld) [Mass/Vol] 15.0 g/dL Normal 12.0-16.0 [facility] Comment on above: Performed By: #### C BC #### [facility] [address] [place] [address] Dr. Malick Larkin IG # 0.02 10e3/ul Normal 0.00-0.03 [facility] Comment on above: Performed By: #### C BC #### [facility] [address] [place] [address] Dr. Malick Larkin IG % 0.3 % Normal 0.0-0.5 [facility] Comment on above: Performed By: #### C BC #### [facility] [address] [place] [address] Dr. Malick Larkin LYMPH # 2.1 103/ul Normal 1.2-3.8 [facility] Comment on above: Performed By: #### C BC #### [facility] [address] [place] [address] Dr. Malick Larkin Lymphocytes/100 WBC (Bld) 31.2 % Normal 20.5-60.0 [facility] Comment on above: Performed By: #### C BC #### [facility] [address] [place] [address] Dr. Malick Larkin MANUAL DIFF REQ NO Normal [facility] Comment on above: Performed By: #### C BC #### [facility] [address] [place] [address] Dr. Malick Larkin MCH (RBC) [Entitic mass] 28.8 pg Normal 26.7-34.0 [facility] Comment on above: Performed By: #### C BC #### [facility] [address] [place] [address] Dr. Malick Larkin MCHC (RBC) [Mass/Vol] 33.6 g/dL Normal 29.9-35.2 [facility] Comment on above: Performed By: #### C BC #### [facility] [address] [place] [address] Dr. Malick Larkin MCV (RBC) [Entitic vol] 86.0 fL Normal 81.0-99.0 [facility] Comment on above: Performed By: #### C BC #### [facility] [address] [place] [address] Dr. Malick Larkin MONO # 0.6 103/ul Normal 0.3-0.8 [facility] Comment on above: Performed By: #### C BC #### [facility] [address] [place] [address] Dr. Malick Larkin Monocytes/100 WBC (Bld) 8.2 % Normal 1.7-12.0 [facility] Comment on above: Performed By: #### C BC #### [facility] [address] [place] [address] Dr. Malick Larkin NEUT # 4.0 103/ul Normal 1.4-6.5 [facility] Comment on above: Performed By: #### C BC #### [facility] [address] [place] [address] Dr. Malick Larkin Neutrophils/100 WBC (Bld) 58.1 % Normal 43.0-75.0 [facility] Comment on above: Performed By: #### C BC #### [facility] [address] [place] [address] Dr. Malick Larkin Platelet mean volume (Bld) [Entitic vol] 10.1 fL Normal 9.5-13.5 [facility] Comment on above: Performed By: #### C BC #### [facility] [address] [place] [address] Dr. Malick Larkin PLT 158 103/ul Normal 150-450 [facility] Comment on above: Performed By: #### C BC #### [facility] [address] [place] [address] Dr. Malick Larkin RBC 5.20 106/ul Normal 4.20-5.40 [facility] Comment on above: Performed By: #### C BC #### [facility] [address] [place] [address] Dr. Malick Larkin WBC 6.8 103/ul Normal 4.0-11.0 [facility] Comment on above: Performed By: #### C BC #### [facility] [address] [place] [address] Dr. Malick Larkin PROF 14(COMP METB)on 022 Albumin [Mass/Vol] 3.6 g/dL Normal 3.4-5.0 [facility] Comment on above: Performed By: #### C MP #### [facility] [address] [place] [address] Dr. Malick Larkin Albumin/Globulin [Mass ratio] 0.8 {ratio} Normal [facility] Comment on above: Performed By: #### C MP #### [facility] [address] [place] [address] Dr. Malick Larkin ALP [Catalytic activity/Vol] 89 U/L Normal 46-116 [facility] Comment on above: Performed By: #### C MP #### [facility] [address] [place] [address] Dr. Malick Larkin ALT [Catalytic activity/Vol] 20 U/L Normal 14-59 [facility] Comment on above: Performed By: #### C MP #### [facility] [address] [address] [address] Malick Larkin Anion gap [Moles/Vol] 9.5 mmol/L Normal [facility] Comment on above: Performed By: #### C MP #### [facility] [address] [address] [address] Malick Larkin AST [Catalytic activity/Vol] 16 U/L Normal 15-37 [facility] Comment on above: Performed By: #### C MP #### [facility] [address] [address] [address] Malick Larkin Bilirubin [Mass/Vol] 0.8 mg/dL Normal 0.2-1.0 [facility] Comment on above: Performed By: #### C MP #### [facility] [address] [address] [address] Malick Larkin Calcium [Mass/Vol] 9.0 mg/dL Normal 8.5-10.1 [facility] Comment on above: Performed By: #### C MP #### [facility] [address] [address] [address] Malick Larkin Chloride [Moles/Vol] 102 mmol/L Normal 98-107 [facility] Comment on above: Performed By: #### C MP #### [facility] [address] [address] [address] Malick Larkin CO2 [Moles/Vol] 28.3 mmol/L Normal 21.0-32.0 [facility] Comment on above: Performed By: #### C MP #### [facility] [address] [address] [address] Malick Larkin Creatinine [Mass/Vol] 0.77 mg/dL Normal 0.55-1.02 [facility] Comment on above: Performed By: #### C MP #### [facility] [address] [address] [address] Malick Larkin EGFR-AF UGANDAN >60 Normal >=60 [facility] Comment on above: Performed By: #### C MP #### [facility] [address] [address] [address] Malick Larkin EGFR-NON AF UGANDAN >60 Normal >=60 [facility] Comment on above: Performed By: #### C MP #### [facility] [address] [address] [address] Malick Larkin Globulin (S) [Mass/Vol] 4.3 g/dL Normal [facility] Comment on above: Performed By: #### C MP #### [facility] [address] [address] [address] Malick Larkin Glucose [Mass/Vol] 93 mg/dL Normal 74-106 [facility] Comment on above: Performed By: #### C MP #### [facility] [address] [place] [address] Dr. Malick Larkin Potassium [Moles/Vol] 4.8 mmol/L Normal 3.5-5.1 [facility] Comment on above: Performed By: #### C MP #### [facility] [address] [place] [address] Dr. Malick Larkin Protein [Mass/Vol] 7.9 g/dL Normal 6.4-8.2 [facility] Comment on above: Performed By: #### C MP #### [facility] [address] [place] [address] Dr. Malick Larkin Sodium [Moles/Vol] 135 mmol/L Critically low 136-145 Th [facility] Comment on above: Performed By: #### C MP #### [facility] [address] [place] [address] Dr. Malick Larkin Urea nitrogen [Mass/Vol] 11.0 mg/dL Normal 7.0-18.0 [facility] Comment on above: Performed By: #### C MP #### [facility] [address] [place] [address] Dr. Malick Larkin Urea nitrogen/Creatinine [Mass ratio] 14.3 mg/mg Normal [facility] Comment on above: Performed By: #### C MP #### [facility] [address] [place] [address] Dr. Malick Larkin LIPID PROFILEon 11-19-2021 CHOL-HDL RATIO NORM SEE BELOW Normal [facility] Comment on above: Result Comment: 3.3 - 4.4 LOW RISK 4.4 - 7.1 AVERAGE RISK 7.1 - 11.0 MODERATE RISK >11.0 HIGH RISK Performed By: #### L IPID #### [facility] [address] [address] [address] Malick Larkin Cholesterol [Mass/Vol] 136 mg/dL Normal <=200 [facility] Comment on above: Performed By: #### L IPID #### [facility] [address] [address] [address] Malick Larkin Cholesterol in HDL [Mass/Vol] 36 mg/dL Critically low 40-60 [facility] Comment on above: Performed By: #### L IPID #### [facility] [address] [address] [address] Malick Larkin Cholesterol in LDL [Mass/Vol] 75.0 mg/dL Normal [facility] Comment on above: Performed By: #### L IPID #### [facility] [address] [address] [address] Malick Larkin Cholesterol.total/C holesterol in HDL [Mass ratio] 3.8 {ratio} Normal [facility] Comment on above: Performed By: #### L IPID #### [facility] [address] [address] [address] Malick Larkin HDL NORMAL > or = 60 mg/dl - LOW CARDIOVASCULAR RISK <40 mg/dl - HIGH CARDIOVASCULAR RISK Normal [facility] Comment on above: Performed By: #### L IPID #### [facility] [address] [address] [address] Malick Larkin LDL CALC NORMAL SEE BELOW Normal [facility] Comment on above: Result Comment: <100 mg/dl OPTIMAL 100 - 129 mg/dl NEAR OR ABOVE OPTIMAL 130 - 159 mg/dl BORDERLINE HIGH 160 - 189 mg/dl HIGH >190 mg/dl VERY HIGH Performed By: #### L IPID #### [facility] [address] [address] [address] Malick Larkin Triglyceride [Mass/Vol] 125 mg/dL Normal <=150 [facility] Comment on above: Performed By: #### L IPID #### [facility] [address] [place] [address] Dr. Malick Larkin VLDL CALC 25.0 mg/dL Normal [facility] Comment on above: Performed By: #### L IPID #### [facility] [address] [address] [address] Malick Larkin Vital Signs Date Time Vital Sign Value Performing Clinician Facility 08-15-2024 08:33-0400 Body height 165.1 cm [facility] 08-15-2024 08:33-0400 Body mass index (BMI) [Ratio] 29.2 kg/m2 [facility] 08-15-2024 08:33-0400 Body weight 79.88 kg [facility] 08-15-2024 08:33-0400 Diastolic blood pressure 80 mm[Hg] [facility] 08-15-2024 08:33-0400 Heart rate 64 /min [facility] 08-15-2024 08:33-0400 Respiratory rate 12 /min [facility] 08-15-2024 08:33-0400 Systolic blood pressure 124 mm[Hg] [facility] 02-12-2024 22:13-0400 Body height 165.1 cm [facility] 02-12-2024 22:13-0400 Body mass index (BMI) [Ratio] 27.8 kg/m2 [facility] 02-12-2024 22:13-0400 Body weight 75.74 kg [facility] 02-12-2024 22:13-0400 Diastolic blood pressure 74 mm[Hg] [facility] 02-12-2024 22:13-0400 Heart rate 59 /min [facility] 02-12-2024 22:13-0400 Systolic blood pressure 111 mm[Hg] [facility] 08-10-2023 08:45-0400 Body height 165.1 cm [facility] 08-10-2023 08:45-0400 Body mass index (BMI) [Ratio] 28 kg/m2 [facility] 08-10-2023 08:45-0400 Body weight 76.37 kg [facility] 08-10-2023 08:45-0400 Diastolic blood pressure 83 mm[Hg] [facility] 08-10-2023 08:45-0400 Heart rate 62 /min [facility] 08-10-2023 08:45-0400 Respiratory rate 12 /min [facility] 08-10-2023 08:45-0400 Systolic blood pressure 127 mm[Hg] [facility] 02-08-2023 08:30-0400 Body height 165.1 cm Mikael Ball Other [facility] Other 02-08-2023 08:30-0400 Body mass index (BMI) [Ratio] 27.59 kg/m2 Mikael Ball Other [facility] Other 02-08-2023 08:30-0400 Body weight 75.21 kg Mikael Ball Other [facility] Other 02-08-2023 08:30-0400 Diastolic blood pressure 77 mm[Hg] Mikael Ball Other [facility] Other 02-08-2023 08:30-0400 Respiratory rate 12 /min Mikael Ball Other [facility] Other 02-08-2023 08:30-0400 Systolic blood pressure 124 mm[Hg] Mikael Ball Other [facility] Other 08-08-2022 16:30-0400 Body height 165.1 cm Mikael Ball Other [facility] Other 08-08-2022 16:30-0400 Body mass index (BMI) [Ratio] 28.12 kg/m2 Mikael Ball Other [facility] Other 08-08-2022 16:30-0400 Body weight 76.66 kg Mikael Ball Other [employer] Other 08-08-2022 16:30-0400 Diastolic blood pressure 74 mm[Hg] Mikael Ball Other [employer] Other 08-08-2022 16:30-0400 Respiratory rate 12 /min Mikael Ball Other [employer] Other 08-08-2022 16:30-0400 Systolic blood pressure 112 mm[Hg] Mikael Ball Other [employer] Other Encounters Encounter Date Encounter Type Care Provider Facility Start: 11-10-2024 End: 11-10-2024 ambulatory [facility] Start: 08-15-2024 End: 08-15-2024 ambulatory [facility] Work Phone: Start: 08-15-2024 End: 08-15-2024 Patient encounter procedure [facility] Work Phone: Start: 02-15-2024 End: 02-15-2024 ambulatory [facility] Work Phone: Start: 02-15-2024 End: 02-15-2024 Encounter for general adult medical examination without abnormal findings [facility] Start: 02-15-2024 End: 02-15-2024 Patient encounter procedure [facility] Work Phone: Start: 02-12-2024 Patient encounter status [facility] Start: 08-10-2023 End: 08-10-2023 ambulatory [facility] Work Phone: Start: 08-10-2023 End: 08-10-2023 Patient encounter procedure [facility] Work Phone: Start: 02-08-2023 End: 02-08-2023 ambulatory Mikael Mccormick Other [employer] Other Start: 02-08-2023 Encounter for genera l adult medical examination without abnormal findings Mikael Mccormick [facility] Start: 02-08-2023 Periodic preventive med est patient 40-64yrs Mikael Mccormick [facility] Start: 08-08-2022 End: 08-08-2022 ambulatory Mikael Mccormick Other [employer] Other Start: 08-08-2022 Office outpatient vi sit 25 minutes Mikael Mccormick [facility] Start: 04-14-2022 End: 04-15-[address] MIKAEL MCCORMICK Facility:[facility] Start: 04-12-2022 Encounter for genera l adult medical examination without abnormal findings DR MIKAEL MCCORMICK [facility] Start: 04-08-2022 End: 04-09-[address] MIKAEL MCCORMICK Facility:[facility] Start: 04-08-2022 End: 04-09-2022 Encounter for general adult medical examination without abnormal findings DR MIKAEL MCCORMICK Facility:[facility] Start: 11-19-2021 End: 11-20-[address] TAYLA PLATA Facility:[facility] Start: 06-03-[address] TAYLA PLATA Fac ility:[facility] Start: 03-14-2021 End: 03-15-2021 ambulatory MIKAEL MCCORMICK Facility:[facility] Payers Date Payer Category Payer Private Health Insurance [id number] 1965 Unknown [id number] 1965 Unknown [id number] [id number] 1964 Unknown [id number] 1964 Unknown [id number] [id number] [id number] 1964 Unknown [id number] 1960 Self-pay 1960 Unknown [id number] Unknown [id number] Social History Date Type Detail Facility Sex Assigned At [employer] Other Start: 08-09-2023 Tobacco smoking status NHIS Smoker (finding) [facility] Start: 1965 Sex Assigned At Female [facility] Start: 08-15-2024 Sex Female (finding) [facility] NEGATED: Highlighted row Fir [facility] Progress note 11-10-2024 Note Date & Type Note Facility 11-10-2024 Note [place] [facility] Subjective Kalee Richetr is a 59 y.o. year old female patient being seen for 1.5 year follow up. Patient states she still has the angina which comes with exertion which is nothing new. Patient denies any other cardiac symptoms at this time. Patient states she takes her amlodipine occasional due to it making her feel like it causes her blood pressure to go to low. Patient Active Problem List Diagnosis Cardiovascular stress test abnormal Carotid bruit Chest pain Coronary arteriosclerosis Disorder of lipid metabolism Dyspnea Essential hypertension Hyperlipidemia Left bundle branch block Tobacco dependence syndrome Carotid artery stenosis Subclavian artery stenosis, right Family History Problem Relation Name Age of Onset Parkinsonism Mother Hypertension Father Lung cancer Father Coronary artery disease Brother Heart failure Brother Atrial fibrillation Brother Social History Tobacco Use Smoking status: Every Day Current packs/day: 0.50 Types: Cigarettes Smokeless tobacco: Never Substance Use Topics Alcohol use: Yes Comment: occasional Drug use: Never HPI Visit of 05/01/2019: Klaee is a 53-year-old woman who is seen in follow-up. 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 Update 06/14/2020: She is seen in f (more content not included)... [facility] Evaluation note 02-08-2023 Note Date & Type [...] achieve/maintain a normal BMI. Jan, Atherosclerosis of pala arteries of extremities with intermittent claudication, bilateral [...] patient on monthly SBE and yearly mammograms. [employer] Other Evaluation note 08-08-2022 Note Date & [...] in a normal BMI. Jul, Atherosclerosis of pala arteries of extremities with intermittent claudication, bilateral [...] in temperature or color. No claudication symptoms [employer] Other Evaluation note Note Date & Type Note Facility Evaluation note Diagnosis Onset Date ASHD (arteriosclerotic heart disease) acute Chronic bronchitis acute Elevated cholesterol acute Hypertension acute Nicotine dependence acute Overweight acute Rotator cuff strain acute [facility] Work Phone: Evaluation note Note Date & Type Note Facility Evaluation note Diagnosis Onset Date ASHD (arteriosclerotic heart disease) acute Chronic bronchitis acute Elevated cholesterol acute Hypertension acute Nicotine dependence acute Overweight acute Rotator cuff strain acute Wellness examination acute [facility] Work Phone: Evaluation note Note Date & Type Note Facility Evaluation note Diagnosis Onset Date Resolution ASHD (arteriosclerotic heart disease) acute August 15, 2024 8:21am Chronic bronchitis acute August 15, 2024 8:21am Elevated cholesterol acute [facility] 2024 8:21am Hypertension acute August 15, 2024 8:21am Nicotine dependence acute August 15, 2024 8:21am Overweight acute August 15 8:21am [facility] Work Phone: History general Narrative - Reported [...] History ESWL Hospitalization History SEE SURGICAL HX [employer] Other Summary Purpose Family History No Family History Records Found Relationship Condition Age at Onset Recorded Date/T jalen father Heart disease Unknown Malignant neoplasm Unknown Hypertension Unknown Advance Directives No Advanced Directives Records Found Advance Directive Response Recorded Date/ Time Advance Directives No June 12, 2023 4:14pm Chief Complaint and Reason for Visit Chief Complaint 6 month follow up Reason for Visit ASHD (arteriosclerot ic heart disease) Chronic bronchitis Elevated cholesterol Hypertension Nicotine dependence Overweight Rotator cuff strain Chief Complaint Wellness Reason for Visit ASHD (arteriosclerot ic heart disease) Chronic bronchitis Elevated cholesterol Hypertension Nicotine dependence Overweight Rotator cuff strain Wellness examination Chief Complaint Admit Date 6 month f/u August 15, 2024 8:2 1am Reason for Visit Admit Date ASHD (arteriosclerotic heart disease) [facility] 2024 8:21am Chronic bronchitis August 15, 2024 8:2 1am Elevated cholesterol August 15, 2024 8: 21am Hypertension August 15, 2024 8:2 1am Nicotine dependence August 15, 2024 8:2 1am Overweight August 15, 2024 8:2 1am Additional Source Comments INFORMATION SOURCE (unrecogn ized section and content) DATE CREATED AUTHOR 03/19/2021 [facility] DATE CREATED AUTHOR AUTHOR'S ORGANIZ ATION 04/20/2022 [facility] DATE CREATED AUTHOR AUTHOR'S ORGANIZ ATION 11/11/2024 [facility] REASON FOR VISIT (unrecogniz ed section and content) 6 MONTH FOLLOW UPWellness ex am Care Teams (unrecognized sec tion and content) Team Status: Active Member Role Status Dates Mikael Mccormick , DO Primary Care Provider Active Team Status: Inactive Member Role Status Dates Mikael Mccormick , DO Primary Care Provide r, Attending Provider Active Start: August 10, 2023 End: August 10, 2023 Team Status: Inactive Member Role Status Dates Mikael Mccormick , DO Primary Care Provide r, Attending Provider Active Start: February 15, 2024 End: February 15, 2024 Team Status: Inactive Member Role Status Dates Mikael Mccormick , DO Primary Care Provide r, Attending Provider Active Start: August 15, 2024 End: August 15, 2024 Goals (unrecognized section and content) Goals may [...] BE BASED ON THE PRIMARY CLINICAL RECORDS. [facility]. provides no warranty or guarantee of the accuracy or completeness of information in this document.
--- OUTSIDE RECORDS SUMMARY | 2024-11-22 10:57 | XMS_ITS | Clinical Summary ---
Author Organization [facility] Address [address] [place] [address] Care Team Providers Care Senior Ios Software Engineer Name Role Phone RolandoMikael Primary Care Provider [phone] Allergies No known active allergies Medications isosorbide mononitrate ER (Imdur) 120 mg 24 hr tabletIndications :Chest pain, unspecified type TAKE 1 TABLET BY MOUTH IN THE MORNING. GENERIC EQUIVALENT FOR IMDUR 90 tablet 3 025 Active ezetimibe (Zetia) 10 mg tabletIndications :Hyperlipidemia, unspecified hyperlipidemia type TAKE 1 TABLET BY MOUTH AT BEDTIME 90 tablet 025 Active metoprolol succinate XL (Toprol-XL) 50 mg 24 hr tabletIndications :Palpitations TAKE 1 TABLET BY MOUTH IN THE MORNING 90 tablet 025 Active rosuvastatin (Crestor) 40 mg tabletIndications :Coronary artery disease of [place] artery of [place]koot heart with stable angina pectoris,Mixed hyperlipidemia Take 1 tablet (40 mg) by mouth at bedtime. 90 tablet 3 025 2025 Active clopidogrel (Plavix) 75 mg tabletIndications :Coronary artery disease of [place] artery of [place] heart with stable angina pectoris,Bilatera l carotid artery stenosis Take 1 tablet (75 mg) by mouth once daily as directed. 90 tablet 3 025 2025 Active amLODIPine (Norvasc) 2.5 mg tabletIndications :Essential hypertension Take 1 tablet (2.5 mg) by mouth in the morning. 90 tablet 3 025 2025 Active ranolazine (Ranexa) 500 mg 12 hr tabletIndications :Coronary artery disease of [place] artery of ch[place]koot heart with stable angina pectoris Take 1 tablet (500 mg) by mouth in the morning and at bedtime. 180 tablet 3 025 2025 Active ranolazine (Ranexa) 500 mg 12 hr tabletIndications :Coronary artery disease with angina pectoris, unspecified vessel or lesion type, unspecified whether [place]koot or transplanted heart Take 1 tablet (500 mg) by mouth in the morning and at bedtime. 180 tablet 3 023 2024 Discontinued(R eorder) amLODIPine (Norvasc) 5 mg tabletIndications :Essential hypertension Take 1 tablet (5 mg) by mouth once daily as directed. 90 tablet 3 024 2024 Discontinued(D ose adjustment) isosorbide mononitrate ER (Imdur) 120 mg 24 hr tabletIndications :Chest pain, unspecified type TAKE 1 TABLET BY MOUTH IN THE MORNING. GENERIC EQUIVALENT FOR IMDUR 90 tablet 3 024 2024 Discontinued ezetimibe (Zetia) 10 mg tabletIndications :Hyperlipidemia, unspecified hyperlipidemia type TAKE 1 TABLET BY MOUTH AT BEDTIME. 90 tablet 3 024 2024 Discontinued metoprolol succinate XL (Toprol-XL) 50 mg 24 hr tabletIndications :Palpitations Take 1 tablet (50 mg) by mouth in the morning. 90 tablet 3 024 2024 Discontinued clopidogrel (Plavix) 75 mg tabletIndications :Bilateral carotid artery stenosis Take 1 tablet (75 mg) by mouth once daily as directed. 90 tablet 3 025 2024 Discontinued(R eorder) rosuvastatin (Crestor) 40 mg tabletIndications :Hyperlipidemia, unspecified hyperlipidemia type Take 1 tablet (40 mg) by mouth in the morning. 90 tablet 3 025 2024 Discontinued(R eorder) Active Problems Problem Noted Date Diagnosed Date Carotid artery stenosis 06/23/2022 Overview (06/23/2022): duplex ultrasound suggested more than 70 percent stenosis in the right carotid artery. CT angiogram of the neck in 2019 confirmed 80% stenosis of the right internal carotid artery. This is asymptomatic at this time. Recent carotid duplex ultrasound February 2021 done at [facility] showed mild right and moderate left carotid stenosis. 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 and is on OMT Assessment & Plan (06/23/2022 11:06 AM EST): Coronary artery disease is stable No concerning symptoms today Continue GDMT- plavix, imdur, crestor, zetia, toprol and ranexa Disorder of lipid metabolism 02/27/2022 Dyspnea 02/27/2022 Essential hypertension 02/27/2022 Assessment & Plan (06/23/2022 11:04 AM EST): Hypertension is well controlled 118/74 Continue amlodipione, imdur, metoprolol Hyperlipidemia 02/27/2022 Assessment & Plan (06/23/2022 11:05 AM EST): Ranexa has become unaffordable and she has stopped taking Remains on crestor 40 mg and zetia Left bundle branch block 02/27/2022 Assessment & Plan (06/23/2022 12:42 PM EST): Stable, no concerning symptoms Tobacco dependence syndrome 02/27/2022 Assessment & Plan (06/23/2022 12:42 PM EST): Recommended smoking cessation- she is still not ready to quit Encounters Date Type Department Care Team Description 11/10/2024 2:15 PM EDT Office Visit [address] [place] [phone] Levi Becker MD Coronary artery disease of chilkoot artery of chilkoot heart with stable angina pectoris (Primary Dx); Bilateral carotid artery stenosis; Essential hypertension; Mixed hyperlipidemia; Subclavian artery stenosis, right; PAD (peripheral artery disease) 11/01/[address] [place] [phone] Levi Becker MD Hyperlipidemia, unspecified hyperlipidemia type; Palpitations 10/28/[address] [place] [phone] Barbara Lozoya CNP Chest pain, unspecified type 10/08/[address] [place] [phone] Janette Rincon MA Bilateral carotid artery stenosis (Primary Dx); Hyperlipidemia, unspecified hyperlipidemia type 10/07/2024 Orders Only [address] [place] [phone] Andreina Delacruz MA Coronary artery disease, unspecified vessel or lesion type, unspecified whether angina present, unspecified whether chilkoot or transplanted heart; Familial hypercholesterolemia 10/03/[address] [place] [phone] Barbara Lozoya, TOMA Hyperlipidemia, unspecified hyperlipidemia type 10/03/[address] [place] [phone] Levi Becker MD Bilateral carotid artery stenosis from Last 3 Months Family History Medical History Relation Name Comments Atrial fibrillation Brother Coronary artery disease Brother Heart failure Brother Hypertension Father Lung cancer Father Parkinsonism Mother Relation Name Status Comments Brother Father Mother Social History Tobacco Use Types Packs/Day Years Used Date Smoking Tobacco: Every Day Cigarettes Smokeless Tobacco: Never Tobacco Cessation:Ready to Q uit: Not Asked; Counseling Given: Not Answered Alcohol Use Standard Drinks/Week Comments Yes 0 (1 standard drink = 0.6 oz pur e alcohol) occasional [place] [employer] Answer Date Rec orded Fear of Current or Ex-Partner Not on file Emotionally Abused Not on file 07/12/2023 Physically Abused Not on file 07/12/2023 Sexually Abused Not on file 07/12/2023 Physically or Sexually Abused Not on file Comments Unknown Sex and Gender Information Value Date Recorded Sex Assigned at Not on file Legal Sex Female 11:42 PM EDT Gender Identity Not on file Sexual Orientation Not on file Last Filed Vital Signs Vital Sign Reading Time Taken Comments Blood Pressure 106/74 11/10/2024 2:23 PM EDT Pulse 64 11/10/2024 2:23 PM EDT Temperature - - Respiratory Rate - - Oxygen Saturation 95% 11/10/2024 2:23 PM EDT Inhaled Oxygen Concentration - - Weight 78.9 kg (174 lb) 11/10/2024 2:23 PM EDT Height 162.6 cm (5' 4 ) 11/10/2024 2:23 PM EDT Body Mass Index 29.87 11/10/2024 2:23 PM EDT Plan of Treatment Health Maintenance Due Date Last Done Comments CT Colonography 1965 Colonoscopy 1965 FIT-DNA 1965 FOBT 1965 Sigmoidoscopy 1964 Depression Screening 1976 Pneumococcal Vaccine: Pediat rics (0 to 5 Years) and At-Risk Patients (6 to 64 Years) (1 of 2 - PCV) 10/14/1983 Pap Smear 1985 Adult Tetanus 1986 Cervical Cancer Screening 1994 HPV/Cotest 1994 Mammogram 2004 Zoster Vaccines (1 of 2) 2014 Colorectal Cancer Screening 12/23/2022 FIT 12/23/2022 12/23/2021 COVID-19 Vaccine (2023-2 5 season) 2024 Influenza Vaccine (#1) 2025 HIB Vaccines Aged Out No longer eligi ble based on patient's age to complete this topic HPV Vaccines Aged Out No longer eligi ble based on patient's age to complete this topic IPV Vaccines Aged Out No longer eligi ble based on patient's age to complete this topic Meningococcal B Vaccine Aged Out No l onger eligible based on patient's age to complete this topic Meningococcal Vaccine Aged Out No елена latha eligible based on patient's age to complete this topic Rotavirus Vaccines Aged Out No longer eligible based on patient's age to complete this topic Insurance [facility] Care Teams Senior Ios Software Engineer Relationship Specialty Start Date End Date Mikael Marshall DO [address] [place] [phone] PCP - General 02/27/22
== END 2024-11-22 10:55 | disposition home or self-care (01) ==
LOC: US 10:54
PROVIDERS: PCP Internal Medicine; Visit Provider Internal Medicine Interventional Cardiology
DX: I65.23 Occlusion and stenosis of bilateral carotid arteries (principal)
CPT/HCPCS: 93880

== ENCOUNTER 2024-11-28 08:23 | Outpatient (OUT) | payer OTHER, SELFPAY ==
--- NOTE | 2024-11-28 | NM_ITS ---
RADIOLOGY REPORT PROCEDURE: NM ASMITA PERF SPECT REST STR COMPARISON: None. INDICATIONS: CORONARY ARTERY DISEASE OF AGDAAGUX ARTERY OF AGDAAGUX HEART TECHNIQUE: Exam Description: Stress/Rest one day protocol gated SPECT Rest Imagin.3 mCi Tc-99m Cardiolite IV on 11/28/2024 Stress Imaging 30.7 mCi Tc-99m Cardiolite IV on 11/28/2024 Exercise Protocol: 0.4 mg Lexiscan given IV Heart Rate (bpm): Rest: 51 Max: 68 PMHR: 42 Blood Pressure: Rest: 134/80 Max: 134/80 Symptoms: Rest and peak stress ECG findings were pending and the EKG portion of the study was pending per attending physician [facility] . For more details please see separate cardiac stress test report. FINDINGS: QUALITY OF STUDY: Good PERFUSION DEFECT: LOCATION: Inferior SIZE: Medium SEVERITY: Mild TYPE: Reversible WALL MOTION: Normal LV SIZE: 93 mL. TID / TCD: LVEF: Calculated EF 61 %. SUMMARY: Abnormal myocardial perfusion imaging study CONCLUSION: Abnormal myocardial perfusion stress test showing evidence of mild inferior ischemia Normal left ventricular systolic function, ejection fraction 61% TID was not calculated but visually no obvious transient ischemic dilatation EKG portion of stress test is reported separately Dictated by: Luis Antonio Dey MD on 11/28/2024 at 19:22 Approved by: Luis Antonio Dey MD on 11/28/2024 at 19:29 Continued Report - Page The [address] [address]
--- OUTSIDE RECORDS SUMMARY | 2024-11-28 08:27 | XMS_ITS | Clinical Summary ---
Author Organization [facility] Address [address] [place] [address] Care Team Providers Care Group Sales Coordinator Name Role Phone RolandoMikael Primary Care Provider [phone] Allergies No known active allergies Medications isosorbide [...] 40 mg tabletIndications :Coronary artery disease of [place] artery of [place] heart with stable angina pectoris,Mixed hyperlipidemia Take 1 tablet (40 mg) by mouth at bedtime. 90 tablet 3 025 2025 Active clopidogrel (Plavix) 75 mg tabletIndications :Coronary artery disease of [place] artery of [place] heart with stable angina pectoris,Bilatera l carotid artery stenosis Take 1 tablet (75 mg) by mouth once daily as directed. 90 tablet 3 025 2025 Active amLODIPine (Norvasc) 2.5 mg tabletIndications :Essential hypertension Take 1 tablet (2.5 mg) by mouth in the morning. 90 tablet 3 025 2025 Active ranolazine (Ranexa) 500 mg 12 hr tabletIndications :Coronary artery disease of [place] artery of [place] heart with stable angina pectoris Take 1 tablet (500 mg) by mouth in the morning and at bedtime. 180 tablet 3 025 2025 Active ranolazine (Ranexa) 500 mg 12 hr tabletIndications :Coronary artery disease with angina pectoris, unspecified vessel or lesion type, unspecified whether [place] or transplanted heart Take 1 tablet (500 mg) by mouth in the morning and at bedtime. 180 tablet 3 023 2024 Discontinued(R eorder) amLODIPine (Norvasc) 5 mg tabletIndications :Essential hypertension Take 1 tablet (5 mg) by mouth once daily as directed. 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 , inferior ischemia and [...] Encounters Date Type Department Care Team Description 11/26/2024 Orders Only [facility] [place] [address] [place] [address] Nick Braxton MD 11/10/2024 2:15 PM EDT Office Visit [address] [place] [address] Levi Becker MD Coronary artery disease of [place] artery of [place] heart with stable angina pectoris (Primary Dx); Bilateral carotid artery stenosis; Essential hypertension; Mixed hyperlipidemia; Subclavian artery stenosis, right; PAD (peripheral artery disease) 11/01/[address] [place] [address] Levi Becker MD Hyperlipidemia, unspecified hyperlipidemia type; Palpitations 10/28/[address] [place] [address] Barbara Lozoya, DRUM FILLER Chest pain, unspecified type 10/08/[address] [place] [address] Janette Rincon MA Bilateral carotid artery stenosis (Primary Dx); Hyperlipidemia, unspecified hyperlipidemia type 10/07/2024 Orders Only [address] [place] [address] Andreina Delacruz MA Coronary artery disease, unspecified vessel or lesion type, unspecified whether angina present, unspecified whether [place] or transplanted heart; Familial hypercholesterolemia 10/03/[address] [place] [address] Barbara Lozoya, DRUM FILLER Hyperlipidemia, unspecified hyperlipidemia type 10/03/[address] [place] [address] Levi Becker MD Bilateral carotid artery stenosis [...] on patient's age to complete this topic Procedures Procedure Name Priority Date/Time Associated Diagnosis Comments VASC US CAROTID ARTERY DUPLEX BILATERAL Routine 11/22/2024 4:06 PM EDT from Last 3 Months Results * Vascular US carotid artery duplex bilateral (11/22/2024 4:06 PM EDT) Anatomical Region Laterality Modality Neck Ultrasound Historical Provider MD KEANE CV VASCULAR PROCEDURE S Final Result from Last [address] [facility] Care Teams Group Sales Coordinator Relationship Specialty Start Date End Date Mikael Marshall DO [address] [place] [address] PCP - General 02/27/22
--- OUTSIDE RECORDS SUMMARY | 2024-11-28 08:27 | XMS_ITS | Encounter Summary ---
Author Organization [facility] Address [address] [place] [address] Care Team Providers Care Geotechnical Intern Name Role Phone RolandoMikael Primary Care Provider [phone] Encounter Details Date Type Department Care Team (Late st Contact Info) Description 11/26/2024 Orders Only [facility] [address] [place] [address] Provider, MD Nick [address] [place], [place] [id number] Social History Tobacco Use Types Packs/Day Years Used Date Smoking Tobacco: Every Day Cigarettes Smokeless Tobacco: Never Alcohol Use Standard Drinks/Week Comments Yes 0 [...] on file Sexual Orientation Not on file documented as of this encounter Plan of Treatment Not on file documented as of this encounter Procedures Procedure Name Priority Date/Time Associated Diagnosis Comments VASC US CAROTID ARTERY DUPLEX BILATERAL Routine 11/22/2024 4:06 PM EDT documented in this encounter Results * Vascular US carotid artery duplex bilateral (11/22/2024 4:06 PM EDT) Anatomical Region Laterality Modality Neck Ultrasound us Historical Provider MD KEANE CV VASCULAR PROCEDURE S Final Result documented in this encounter Visit Diagnoses Not on filedocumented in this encounter Care Teams Geotechnical Intern Relationship Specialty Start Date End Date Mikael Marshall DO [address] [place] [phone] PCP - General 02/27/22 documented as of this encounter
[2024-11-28] MEDS: REGADENOSON 0.4 MG/5 ML SYRINGE IV (10:23)
--- NOTE | 2024-11-28 10:24 | PC.NURSE ---
Nursing Note Cardiac Stress Test Reviewed: Medication, allergies and patient history reviewed. Stress Test: [x ] Patient tolerated stress test well. [ ] Patient unable to tolerate walking on treadmill. Switched to Lexiscan stress test. [x ] No chest pain noted per patient [ ] Chest pain that resolved prior to leaving stress lab. [x ] No dyspnea noted. [ ] Dyspnea that resolved prior to leaving stress lab. [x ] Patient left stress lab asymptomatic and hemodynamically stable. [ ] Patient taken to the Emergency Room due to non-resolving symptoms following stress test. [ ] Patient achieved target heart rate. [ ] Patient unable to achieve target heart rate. [ ] Aminophylline administered as reversal agent to Lexiscan (Regadenoson). [ ] Nitro administered. Nursing Comments:Pt had LBBB and per [place] Dr she was switched to a Lexiscan. Tolerated well and left lab with no symptoms and ambulated to cafeteria for breakfast prior to second set of images.
--- NOTE | 2024-11-28 20:10 | PM.STRESS ---
Stress Test Stress Test Requesting physician: TAYLA PLATA Procedure: Lexiscan nuclear stress test General Information: Reason for Stress Test: [Coronary artery disease] Cardiac History and Risk Factors: [Will artery disease, hypertension, hyperlipidemia, tobacco abuse, PAD] Resting 12 - Lead Electrocardiogram: Resting EKG showed sinus bradycardia with complete left bundle branch block, heart rate 48 bpm Resting heart rate 51 bpm, resting blood pressure 134/80 mmHg The patient was injected with 0.4 mg of IV Lexiscan and she was monitored for few minutes. She did not report any symptoms. Peak heart rate 68 bpm which represents 42% of age-predicted maximum heart rate and max blood pressure 134/80 mmHg. EKG throughout the test did not show any significant changes from baseline and there was no significant ectopies or arrhythmias Stress Test: Protocol: [Lexiscan] Exercise Capacity: [Not applicable] Blood Pressure Response: [Normal] Rhythm: [No arrhythmia] ST - Response: [No changes] Patient Response: [Normal] Interpretation: Nondiagnostic Lexiscan EKG stress test due to baseline left bundle branch block The nuclear myocardial perfusion images result is reported separately Luis Antonio Dey MD, FACC
== END 2024-11-28 08:24 | disposition home or self-care (01) ==
LOC: NM 08:24
PROVIDERS: PCP Internal Medicine; Visit Provider Internal Medicine Interventional Cardiology
DX: I25.118 Atherosclerotic heart disease of native coronary artery with other forms of angina pectoris (principal)
CPT/HCPCS: 78452; 93017; A9500; J2785

== ENCOUNTER 2024-12-19 06:57 | Outpatient (OUT) | payer OTHER, SELFPAY ==
--- OUTSIDE RECORDS SUMMARY | 2024-12-19 07:00 | XMS_ITS | Clinical Summary ---
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 GENERIC EQUIVALENT FOR IMDUR 90 tablet 3 5 Active ezetimibe (Zetia) 10 mg tabletIndications: Hyperlipidemia, unspecified hyperlipidemia type TAKE 1 TABLET BY MOUTH AT BEDTIME 90 tablet 5 Active metoprolol succinate XL (Toprol-XL) 50 mg 24 hr tabletIndications: Palpitations TAKE 1 TABLET BY MOUTH IN THE MORNING 90 tablet 5 Active rosuvastatin (Crestor) 40 mg tabletIndications: Coronary artery disease of [place] artery of [place] heart with stable angina pectoris,Mixed hyperlipidemia Take 1 tablet (40 mg) by mouth at bedtime. 90 tablet 3 5 026 Active clopidogrel (Plavix) 75 mg tabletIndications: Coronary artery disease of [place] artery of [place] heart with stable angina pectoris,Bilateral carotid artery stenosis Take 1 tablet (75 mg) by mouth once daily as directed. 90 tablet 3 5 026 Active amLODIPine (Norvasc) 2.5 mg tabletIndications: Essential hypertension Take 1 tablet (2.5 mg) by mouth in the morning. 90 tablet 3 5 026 Active ranolazine (Ranexa) 500 mg 12 hr tabletIndications: Coronary artery disease of [place] artery of [place] heart with stable angina pectoris Take 1 tablet (500 mg) by mouth in the morning and at bedtime. 180 tablet 3 5 026 Active Active Problems Problem Noted Date Diagnosed Date Abnormal stress test 12/04/2024 Carotid artery stenosis 06/23/2022 Overview (06/23/2022): duplex ultrasound suggested more than 70 percent stenosis in the right carotid artery. CT angiogram of the neck in 2019 confirmed 80% stenosis of the right internal carotid artery. This is asymptomatic at this time. 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 [employer] CCS 2 angina , inferior ischemia and [...] Encounters Date Type Department Care Team Description 12/04/[address] [place] [address] JaymeAndreina MA 12/01/2024 Orders Only [address] [place] [address] ProviderNick MD 11/26/2024 Orders Only [address] [place] [address] ProviderNick MD 11/10/2024 2:15 PM EDT Office Visit [address] [place] [address] Levi Becker MD Coronary artery disease of [place] artery of [place] heart with stable angina pectoris (Primary Dx); Bilateral carotid artery stenosis; Essential hypertension; Mixed hyperlipidemia; Subclavian artery stenosis, right; PAD (peripheral artery disease) 11/01/[address] [place] [address] Levi Becker MD Hyperlipidemia, unspecified hyperlipidemia type; Palpitations 10/28/[address] [place] [address] Barbara Lozoya CNP Chest pain, unspecified type 10/08/[address] [place] [address] Janette Rincon MA Bilateral carotid artery stenosis (Primary Dx); Hyperlipidemia, unspecified hyperlipidemia type 10/07/2024 Orders Only [address] [place] [address] Andreina Delacruz MA Coronary artery disease, unspecified vessel or lesion type, unspecified whether angina present, unspecified whether [place] or transplanted heart; Familial hypercholesterolemia 10/03/2024 Refill [facility] [address] [facility] [place] [address] Barbara Lozoya CNP Hyperlipidemia, unspecified hyperlipidemia type 10/03/[address] [place] [address] Levi Becker MD Bilateral carotid artery stenosis [...] 11/10/2024 2:23 PM EDT Plan of Treatment Upcoming Encounters Date Type Department Care Team (Late st Contact Info) Description 12/25/2024 9:30 AM EDT Hospital Encounter [facility] [address] [place] [phone] Levi Becker MD [address] [facility] [address] Abnormal stress test 12/25/2024 9:30 AM EDT - 12/25/2024 10:30 AM EDT Surgery [facility] [address] [place] [phone] Lvei Becker MD [address] [place] [address] Coronary angiography Health Maintenance Due Date Last Done Comments CT Colonography 1964 Colonoscopy 1964 FOBT 1964 Sigmoidoscopy 1964 Depression Screening 1976 Pneumococcal Vaccine: Pediat rics (0 to 5 Years) and At-Risk Patients (6 to 64 Years) (1 of 2 - PCV) 10/14/1983 Pap Smear 1985 Adult Tetanus 1986 Cervical Cancer Screening 1994 HPV/Cotest 1994 Mammogram 2004 Zoster Vaccines (1 of 2) 2014 FIT 12/23/2022 12/23/2021 COVID-19 Vaccine ( - 2023-2 5 season) 2024 Colorectal Cancer Screening 12/23/2024 FIT-DNA 12/23/2024 12/23/2021 Influenza Vaccine (#1) 2025 HIB Vaccines Aged [...] Procedure Name Priority Date/Time Associated Diagnosis Comments LEXISCAN STRESS MYOCARDIAL PERFUSION IMAGING Routine 11/28/2024 8:39 AM EDT VASC US CAROTID ARTERY DUPLEX BILATERAL Routine 11/22/2024 4:06 PM EDT from Last 3 Months Results * Lexiscan Stress Myocardial Perfusion Imaging (11/28/2024 8:39 AM EDT) Anatomical Region Laterality Modality Other Historical Provider CV STRESS PROCEDURES Izabella barnard Result * Vascular US carotid artery duplex bilateral (11/22/2024 4:06 PM EDT) Anatomical Region Laterality Modality Neck Ultrasound Historical Provider IMG CV VASCULAR PROCEDURE S Final Result from Last 3 Months Insurance [facility] Care Teams Artificial Inseminator Relationship Specialty Start Date End Date Mikael Marshall DO [address] [place] [address] PCP - General 02/27/22
--- OUTSIDE RECORDS SUMMARY | 2024-12-19 07:00 | XMS_ITS | CCD ---
Author Organization [facility] ion Partnership [facility] Care Team Providers Care Pediatric Speech Language Pathologist Name Role Phone MIKAEL MCCORMICK Referring Unavailable ROLANDO, MIKAEL Primary Care Unavailable UNKNOWN, PROVIDER Attending Unavailable UNKNOWN, PROVIDER Admitting Unavailable ROLANDO, DR REAL Admitting Unavailable BALL, DR REAL [...] source) HMG-CoA reductase inhibitor Drug allergy Unknown [facility] Other Medications Current Medications Medication Drug Class(es) [...] Coronary arteriosclerosis; Translations: [Atherosclerotic heart disease of swin[place] coronary artery without angina pectoris] Onset: 11-10-2024 [...] and due to atherosclerosis; Translations: [Atherosclerosis of sw[place] arteries of extremities with intermittent claudication, bilateral [...] Name Value Interpretation Reference Range Facil ity 36on 12-05-2024 36 Called patient to make sure she got my VM from yesterday about needing heart cath. She verbalized understanding. [facility] 36on 12-04-2024 36 Regarding stress test from 11/28/2024: Tayla Becker MD to [place] 12/04/24 3:15 AM The stress test showed ischemia. she needs cardiac cath. Please schedule for coronary angiogram. for patient and asked her to return my call. Cath and lab orders entered. Normal [facility] Telephoneon 12-04-2024 Telephone [id number] Kalee Richter 1965 F Date Provider Department Center 12/04/2024 Shimon-CARLEE GODFREY CARD [facility] Family History Problem Relation Age of Onset Parkinsonism Mother Hypertension Father Lung cancer Father Coronary artery disease Brother Heart failure Brother Atrial fibrillation Brother Family Status - Relation Status Age at Mother Father Brother [facility] Orders Onlyon 12-01-2024 Orders Only [id number] Kalee Richter 1965 Date Provider Department Center 12/01/2024 [id number], HISTORICAL CARD [facility] Family History Problem Relation Age of Onset Parkinsonism Mother Hypertension Father Lung cancer Father Coronary artery disease Brother Heart failure Brother Atrial fibrillation Brother Family Status - Relation Status Age at Mother Father Brother [facility] Orders Onlyon 11-26-2024 Orders Only [id number] Kalee Richter 1965 Date Provider Department Center 11/26/2024 [id number], HISTORICAL SOM [facility] Family History Problem Relation Age of Onset Parkinsonism Mother Hypertension Father Lung cancer Father Coronary artery disease Brother Heart failure Brother Atrial fibrillation Brother Family Status - Relation Status Age at Mother Father Brother [facility] Office Visiton 11-10-2024 Follow-up visit [id number] Kalee Richter 1965 Date Provider Department Center 11/10/2024 [facility]TAYLA BECKER CARD [facility] Family History Problem Relation Age of Onset Parkinsonism Mother Hypertension Father Lung cancer Father Coronary artery disease Brother Heart failure Brother Atrial fibrillation Brother Family Status - Relation Status Age at Mother Father Brother Level of Service:32033 UT OFFICE/OUTPATIENT ESTABLISHED MOD MDM 30 MIN [facility] MG MAMM SCREEN 3D JAYLON CADon 04-14-2022 MG MAMM SCREEN 3D JAYLON CAD Patient: KALEE RICHTERMichael Exam Date: 04/14/2022 : 1965 Gender:F Ordering : DR MIKAEL MCCORMICK D.O. Admission #: [id number] Family : Order #: [id number] CLICK HERE TO VIEW EXAM RADIOLOGY REPORT [...] lung cancer at age 63. LOCATION: [facility] BREAST COMPOSITION: Scattered areas fibroglandular density. [...] M.D. on 04/17/2022 at 10:47 Normal [facility] CBC AUTO DIFFon 04-08-2022 BASO # 0.1 103/ul Normal 0.0-0.1 [facility] Comment on above: Performed By: #### C BC #### [facility] [address] [place] [address] Dr. Malick Larkin Basophils/100 WBC (Bld) 0.9 % Normal 0.2-2.0 [facility] Comment on above: Performed By: #### C BC #### [facility] [address] [address] [address] Malick Larkin EO # 0.1 103/ul Normal 0.0-0.7 [facility] Comment on above: Performed By: #### C BC #### [facility] [address] [address] [address] Malick Larkin Eosinophils/100 WBC (Bld) 1.3 % Normal 0.9-7.0 [facility] Comment on above: Performed By: #### C BC #### [facility] [address] [place] [address] Dr. Malick Larkin Erythrocyte distribution width (RBC) [Ratio] 13.2 % Normal 11.0-15.0 [facility] Comment on above: Performed By: #### C BC #### [facility] [address] [place] [address] Dr. Malick Larkin Hematocrit (Bld) [Volume fraction] 44.7 % Normal 36.0-48.0 [facility] Comment on above: Performed By: #### C BC #### [facility] [address] [place] [address] Dr. Malick Larkin Hemoglobin (Bld) [Mass/Vol] 15.0 g/dL Normal 12.0-16.0 [facility] Comment on above: Performed By: #### C BC #### [facility] [address] [place] [address] Dr. Malick Larkin IG # 0.02 10e3/ul Normal 0.00-0.03 [facility] Comment on above: Performed By: #### C BC #### [facility] [address] [place] [address] Dr. Malick Larkin IG % 0.3 % Normal 0.0-0.5 [facility] Comment on above: Performed By: #### C BC #### [facility] [address] [place] [address] Dr. Malick Larkin LYMPH # 2.1 103/ul Normal 1.2-3.8 [facility] Comment on above: Performed By: #### C BC #### [facility] [address] [place] [address] Dr. Malick Larkin Lymphocytes/100 WBC (Bld) 31.2 % Normal 20.5-60.0 [facility] Comment on above: Performed By: #### C BC #### [facility] [address] [place] [address] Dr. Malick Larkin MANUAL DIFF REQ NO Normal [facility] Comment on above: Performed By: #### C BC #### [facility] [address] [address] [address] Malick Larkin MCH (RBC) [Entitic mass] 28.8 pg Normal 26.7-34.0 [facility] Comment on above: Performed By: #### C BC #### [facility] [address] [place] [address] Dr. Malick Larkin MCHC (RBC) [Mass/Vol] 33.6 g/dL Normal 29.9-35.2 [facility] Comment on above: Performed By: #### C BC #### [facility] [address] [place] [address] Dr. Malick Larkin MCV (RBC) [Entitic vol] 86.0 fL Normal 81.0-99.0 [facility] Comment on above: Performed By: #### C BC #### [facility] [address] [place] [address] Dr. Malick Larkin MONO # 0.6 103/ul Normal 0.3-0.8 [facility] Comment on above: Performed By: #### C BC #### [facility] [address] [place] [address] Dr. Malick Larkin Monocytes/100 WBC (Bld) 8.2 % Normal 1.7-12.0 [facility] Comment on above: Performed By: #### C BC #### [facility] [address] [place] [address] Dr. Malick Larkin NEUT # 4.0 103/ul Normal 1.4-6.5 [facility] Comment on above: Performed By: #### C BC #### [facility] [address] [place] [address] Dr. Malick Larkin Neutrophils/100 WBC (Bld) 58.1 % Normal 43.0-75.0 [facility] Comment on above: Performed By: #### C BC #### [facility] [address] [place] [address] Dr. Malick Larkin Platelet mean volume (Bld) [Entitic vol] 10.1 fL Normal 9.5-13.5 [facility] Comment on above: Performed By: #### C BC #### [facility] [address] [address] [address] Malick Larkin PLT 158 103/ul Normal 150-450 [facility] Comment on above: Performed By: #### C BC #### [facility] [address] [address] [address] Malick Larkin RBC 5.20 106/ul Normal 4.20-5.40 [facility] Comment on above: Performed By: #### C BC #### [facility] [address] [address] [address] Malick Larkin WBC 6.8 103/ul Normal 4.0-11.0 [facility] Comment on above: Performed By: #### C BC #### [facility] [address] [place] [address] Dr. Malick Larkin PROF 14(COMP METB)on 022 Albumin [Mass/Vol] 3.6 g/dL Normal 3.4-5.0 [facility] Comment on above: Performed By: #### C MP #### [facility] [address] [place] [address] Dr. Malick Larkin Albumin/Globulin [Mass ratio] 0.8 {ratio} Normal [facility] Comment on above: Performed By: #### C MP #### [facility] [address] [place] [address] Dr. Malick Larkin ALP [Catalytic activity/Vol] 89 U/L Normal 46-116 [facility] Comment on above: Performed By: #### C MP #### [facility] [address] [place] [address] Dr. Malick Larkin ALT [Catalytic activity/Vol] 20 U/L Normal 14-59 [facility] Comment on above: Performed By: #### C MP #### [facility] [address] [place] [address] Dr. Malick Larkin Anion gap [Moles/Vol] 9.5 mmol/L Normal [facility] Comment on above: Performed By: #### C MP #### [facility] [address] [address] [address] Malick Larkin AST [Catalytic activity/Vol] 16 U/L Normal 15-37 [facility] Comment on above: Performed By: #### C MP #### [facility] [address] [place] [address] Dr. Malick Larkin Bilirubin [Mass/Vol] 0.8 mg/dL Normal 0.2-1.0 [facility] Comment on above: Performed By: #### C MP #### [facility] [address] [place] [address] Dr. Malick Larkin Calcium [Mass/Vol] 9.0 mg/dL Normal 8.5-10.1 [facility] Comment on above: Performed By: #### C MP #### [facility] [address] [place] [address] Dr. Malick Larkin Chloride [Moles/Vol] 102 mmol/L Normal 98-107 [facility] Comment on above: Performed By: #### C MP #### [facility] [address] [place] [address] Dr. Malick Larkin CO2 [Moles/Vol] 28.3 mmol/L Normal 21.0-32.0 [facility] Comment on above: Performed By: #### C MP #### [facility] [address] [place] [address] Dr. Malick Larkin Creatinine [Mass/Vol] 0.77 mg/dL Normal 0.55-1.02 [facility] Comment on above: Performed By: #### C MP #### [facility] [address] [place] [address] Dr. Malick Larkin EGFR-AF [place] >60 Normal >=60 [facility] Comment on above: Performed By: #### C MP #### [facility] [address] [place] [address] Dr. Malick Larkin EGFR-NON AF [place] >60 Normal >=60 [facility] Comment on above: Performed By: #### C MP #### [facility] [address] [place] [address] Dr. Malick Larkin Globulin (S) [Mass/Vol] 4.3 g/dL Normal [facility] Comment on above: Performed By: #### C MP #### [facility] [address] [place] [address] Dr. Malick Larkin Glucose [Mass/Vol] 93 mg/dL Normal 74-106 [facility] Comment on above: Performed By: #### C MP #### [facility] [address] [place] [address] Dr. Malick Larkin Potassium [Moles/Vol] 4.8 mmol/L Normal 3.5-5.1 [facility] Comment on above: Performed By: #### C MP #### [facility] [address] [place] [address] Dr. Malick Larkin Protein [Mass/Vol] 7.9 g/dL Normal 6.4-8.2 [facility] Comment on above: Performed By: #### C MP #### [facility] [address] [place] [address] Dr. Malick Larkin Sodium [Moles/Vol] 135 mmol/L Critically low 136-145 [facility] Comment on above: Performed By: #### C MP #### [facility] [address] [place] [address] Dr. Malick Larkin Urea nitrogen [Mass/Vol] 11.0 mg/dL Normal 7.0-18.0 [facility] Comment on above: Performed By: #### C MP #### [facility] [address] [place] [address] Dr. Malick Larkin Urea nitrogen/Creatinine [Mass ratio] 14.3 mg/mg Normal [facility] Comment on above: Performed By: #### C MP #### [facility] [address] [place] [address] Dr. Malick Larkin LIPID PROFILEon 11-19-2021 CHOL-HDL RATIO NORM SEE BELOW Normal [facility] Comment on above: Result Comment: 3.3 - 4.4 LOW RISK 4.4 - 7.1 AVERAGE RISK 7.1 - 11.0 MODERATE RISK >11.0 HIGH RISK Performed By: #### L IPID #### [facility] [address] [address] [address] Malick Larkin Cholesterol [Mass/Vol] 136 mg/dL Normal <=200 [facility] Comment on above: Performed By: #### L IPID #### [facility] [address] [address] [address] Malick Larkin Cholesterol in HDL [Mass/Vol] 36 mg/dL Critically low 40-60 [facility] Comment on above: Performed By: #### L IPID #### [facility] [address] [address] [address] Malick Larkin Cholesterol in LDL [Mass/Vol] 75.0 mg/dL Normal [facility] Comment on above: Performed By: #### L IPID #### [facility] [address] [address] [address] Malick Larkin Cholesterol.total/C holesterol in HDL [Mass ratio] 3.8 {ratio} Normal [facility] Comment on above: Performed By: #### L IPID #### [facility] [address] [address] [address] Malick Larkin HDL NORMAL > or = 60 mg/dl - LOW CARDIOVASCULAR RISK <40 mg/dl - HIGH CARDIOVASCULAR RISK Normal [facility] Comment on above: Performed By: #### L IPID #### [facility] [address] [address] [address] Malick Larkin LDL CALC NORMAL SEE BELOW Normal [facility] Comment on above: Result Comment: <100 mg/dl OPTIMAL 100 - 129 mg/dl NEAR OR ABOVE OPTIMAL 130 - 159 mg/dl BORDERLINE HIGH 160 - 189 mg/dl HIGH >190 mg/dl VERY HIGH Performed By: #### L IPID #### [facility] [address] [address] [address] Malick Larkin Triglyceride [Mass/Vol] 125 mg/dL Normal <=150 [facility] Comment on above: Performed By: #### L IPID #### [facility] [address] [address] [address] Malick Larkin VLDL CALC 25.0 mg/dL Normal [facility] Comment on above: Performed By: #### L IPID #### [facility] [address] [place] [address] Dr. Malick Larkin Vital Signs Date Time Vital Sign Value Performing Clinician Facility 08-15-2024 08:33-0400 Body height 165.1 cm [facility] 08-15-2024 08:33-0400 Body mass index (BMI) [Ratio] 29.2 kg/m2 [facility] 08-15-2024 08:33-0400 Body weight 79.88 kg [facility] 08-15-2024 08:33-0400 Diastolic blood pressure 80 mm[Hg] [facility] 08-15-2024 08:33-0400 Heart rate 64 /min [facility] 08-15-2024 08:33-0400 Respiratory rate 12 /min [facility] 08-15-2024 08:33-0400 Systolic blood pressure 124 mm[Hg] [facility] 02-12-2024 22:13-0400 Body height 165.1 cm [facility] 02-12-2024 22:13-0400 Body mass index (BMI) [Ratio] 27.8 kg/m2 [facility] 02-12-2024 22:13-0400 Body weight 75.74 kg [facility] 02-12-2024 22:13-0400 Diastolic blood pressure 74 mm[Hg] [facility] 02-12-2024 22:13-0400 Heart rate 59 /min [facility] 02-12-2024 22:13-0400 Systolic blood pressure 111 mm[Hg] [facility] 08-10-2023 08:45-0400 Body height 165.1 cm [facility] 08-10-2023 08:45-0400 Body mass index (BMI) [Ratio] 28 kg/m2 [facility] 08-10-2023 08:45-0400 Body weight 76.37 kg [facility] 08-10-2023 08:45-0400 Diastolic blood pressure 83 mm[Hg] [facility] 08-10-2023 08:45-0400 Heart rate 62 /min [facility] 08-10-2023 08:45-0400 Respiratory rate 12 /min [facility] 08-10-2023 08:45-0400 Systolic blood pressure 127 mm[Hg] [facility] 02-08-2023 08:30-0400 Body height 165.1 cm Mikael Ball Other [facility] Other 02-08-2023 08:30-0400 Body mass index (BMI) [Ratio] 27.59 kg/m2 Mikael Ball Other [facility] Other 02-08-2023 08:30-0400 Body weight 75.21 kg Mikael Ball Other [facility] Other 02-08-2023 08:30-0400 Diastolic blood pressure 77 mm[Hg] Mikael Ball Other [facility] Other 02-08-2023 08:30-0400 Respiratory rate 12 /min Mikael Ball Other [facility] Other 02-08-2023 08:30-0400 Systolic blood pressure 124 mm[Hg] Mikael Ball Other [facility] Other 08-08-2022 16:30-0400 Body height 165.1 cm Mikael Ball Other [facility] Other 08-08-2022 16:30-0400 Body mass index (BMI) [Ratio] 28.12 kg/m2 Mikael Ball Other [facility] Other 08-08-2022 16:30-0400 Body weight 76.66 kg Mikael Ball Other [facility] Other 08-08-2022 16:30-0400 Diastolic blood pressure 74 mm[Hg] Mikael Ball Other [facility] Other 08-08-2022 16:30-0400 Respiratory rate 12 /min Mikael Mccormick Other [facility] Other 08-08-2022 16:30-0400 Systolic blood pressure 112 mm[Hg] Mikael Mccormick Other [facility] Other Encounters Encounter Date Encounter Type Care Provider Facility Start: 11-10-2024 End: 11-10-2024 ambulatory [facility] Start: 08-15-2024 End: 08-15-2024 ambulatory [facility] Work Phone: Start: 08-15-2024 End: 08-15-2024 Patient encounter procedure [facility] Work Phone: Start: 02-15-2024 End: 02-15-2024 ambulatory [facility] Work Phone: Start: 02-15-2024 End: 02-15-2024 Encounter for general adult medical examination without abnormal findings [facility] Start: 02-15-2024 End: 02-15-2024 Patient encounter procedure [facility] Work Phone: Start: 02-12-2024 Patient encounter status [facility] Start: 08-10-2023 End: 08-10-2023 ambulatory [facility] Work Phone: Start: 08-10-2023 End: 08-10-2023 Patient encounter procedure [facility] Work Phone: Start: 02-08-2023 End: 02-08-2023 ambulatory Mikael Mccormick Other [facility] Other Start: 02-08-2023 Encounter for genera l adult medical examination without abnormal findings Mikael Mccormick [facility] Start: 02-08-2023 Periodic preventive med est patient 40-64yrs Mikael Mccormick [facility] Start: 08-08-2022 End: 08-08-2022 ambulatory Mikael Mccormick Other [facility] Other Start: 08-08-2022 Office outpatient vi sit 25 minutes [facility] Start: 04-14-2022 End: 04-15-[address] MIKAEL MCCORMICK Facility:[facility] Start: 04-12-2022 Encounter for genera l adult medical examination without abnormal findings DR MIKAEL MCCORMICK [facility] Start: 04-08-2022 End: 04-09-[address] MIKAEL MCCORMICK Facility:[facility] Start: 04-08-2022 End: 04-09-2022 Encounter for general adult medical examination without abnormal findings DR MIKAEL MCCORMICK Facility:[facility] Start: 11-19-2021 End: 11-20-[address] TAYLA BECKER Facility:[facility] Start: 06-03-[address] TAYLA BECKER Fac ility:[facility] Start: 03-14-2021 End: 03-15-2021 ambulatory MIKAEL MCCORMICK Facility:[facility] Payers Date Payer Category Payer Private Health Insurance [id number] 1965 Unknown [id number] [id number] [id number] 1965 Unknown [id number] 2.16.84 [id number] 1965 Unknown [id number] [id number] [id number] 1965 Unknown [id number] 2.16.84 [id number] 1965 Unknown [id number] [id number] [id number] 1960 Self-pay 1960 Unknown [id number] Unknown [id number] Social History Date Type Detail Facility Sex Assigned At [facility] Other Start: 08-09-2023 Tobacco smoking status NHIS Smoker (finding) [facility] Start: 1965 Sex Assigned At Female [facility] Start: 08-15-2024 Sex Female (finding) [facility] NEGATED: Highlighted row [place] [facility] Progress note 11-10-2024 Note Date & Type Note Facility 11-10-2024 Note [place] [facility] Subjective Kalee Richter is a 59 y.o. year old female [...] Drug use: Never HPI Visit of 05/01/2019: Kalee is a 53-year-old woman who is seen in follow-up. 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 [facility] Evaluation note 02-08-2023 Note Date & [...] achieve/maintain a normal BMI. Jan, Atherosclerosis of [place] arteries of extremities with intermittent claudication, bilateral [...] patient on monthly SBE and yearly mammograms. [facility] Other Evaluation note 08-08-2022 Note Date & [...] in a normal BMI. Jul, Atherosclerosis of [place] arteries of extremities with intermittent claudication, bilateral [...] in temperature or color. No claudication symptoms [facility] Other Evaluation note Note Date & Type Note Facility Evaluation note Diagnosis Onset Date ASHD (arteriosclerotic heart disease) acute Chronic bronchitis acute Elevated cholesterol acute Hypertension acute Nicotine dependence acute Overweight acute Rotator cuff strain acute [facility] Work Phone: Evaluation note Note Date & Type Note Facility Evaluation note Diagnosis Onset Date ASHD (arteriosclerotic heart disease) acute Chronic bronchitis acute Elevated cholesterol acute Hypertension acute Nicotine dependence acute Overweight acute Rotator cuff strain acute Wellness examination acute [facility] Work Phone: Evaluation note Note Date & Type Note Facility Evaluation note Diagnosis Onset Date Resolution ASHD (arteriosclerotic heart disease) acute August 15, 2024 8:21am Chronic bronchitis acute August 15, 2024 8:21am Elevated cholesterol acute [facility] 2024 8:21am Hypertension acute August 15, 2024 8:21am Nicotine dependence acute August 15, 2024 8:21am Overweight acute August 15 8:21am [facility] Work Phone: History general Narrative - Reported [...] History ESWL Hospitalization History SEE SURGICAL HX [facility] Other Summary Purpose Family History No Family [...] Visit Admit Date ASHD (arteriosclerotic heart disease) [facility] 2024 8:21am Chronic bronchitis August 15, 2024 8:2 1am Elevated cholesterol August 15, 2024 8: 21am Hypertension August 15, 2024 8:2 1am Nicotine dependence August 15, 2024 8:2 1am Overweight August 15, 2024 8:2 1am Additional Source Comments INFORMATION SOURCE (unrecogn ized section and content) DATE CREATED AUTHOR 03/19/2021 [facility] DATE CREATED AUTHOR AUTHOR'S ORGANIZ ATION 04/20/2022 [facility] DATE CREATED AUTHOR AUTHOR'S ORGANIZ ATION 12/10/2024 [facility] REASON FOR VISIT (unrecogniz ed section and content) 6 MONTH FOLLOW UPWellness ex am Care Teams (unrecognized sec tion and content) Team Status: Active Member Role Status Dates Mikael Ball , DO Primary Care Provider Active Team [...] BE BASED ON THE PRIMARY CLINICAL RECORDS. [facility] [employer] provides no warranty or guarantee of the accuracy or completeness of information in this document.
[2024-12-19 07:15] LABS: Hematocrit 41.9 % (36.0-48.0); Hemoglobin 14.2 g/dL (12.0-16.0); Immature Granulocytes Abs Auto 0.01 10^3/uL (0.00-0.03); Immature Granulocytes Pct Auto 0.2 % (0.0-0.5); Lymphocytes Absolute Auto 2.3 10^3/uL (1.2-3.8); Mean Corpuscular HGB Conc 33.9 g/dL (29.9-35.2); Mean Corpuscular Hemoglobin 29.7 pg (26.7-34.0); Mean Corpuscular Volume 87.7 fL (81.0-99.0); Platelet Count 133 10^3/uL (150-450); Red Blood Count 4.78 10^6/uL (4.20-5.40); White Blood Count 5.7 10^3/uL (4.0-11.0)
[2024-12-19 07:33] LABS: Anion Gap 12.9; Blood Urea Nitrogen 16.0 mg/dL (7.0-18.0); Calcium 9.2 mg/dL (8.5-10.1); Carbon Dioxide 26.1 mmol/L (21.0-32.0); Chloride 103 mmol/L (98-107); Estimated GFR (African America >60 (>=60 mL/min/1.73m^2); Estimated GFR (Non-African Ame >60 (>=60 mL/min/1.73m^2); Glucose 82 mg/dL (74-106); Potassium 4.0 mmol/L (3.5-5.1); Sodium 138 mmol/L (136-145)
== END 2024-12-19 06:58 | disposition home or self-care (01) ==
LOC: LAB 06:58
PROVIDERS: PCP Internal Medicine; Visit Provider Internal Medicine Interventional Cardiology
DX: R94.39 Abnormal result of other cardiovascular function study (principal)
CPT/HCPCS: 36415; 80048; 85025

== ENCOUNTER 2025-02-23 08:33 | Outpatient (OUT) | payer OTHER, SELFPAY ==
--- OUTSIDE RECORDS SUMMARY | 2025-02-20 05:06 | XMS_ITS | Continuity of Care Document ---
Author Organization [facility] Address [address] [place] [address] Phone Care Team Providers Care Machine [employer] Name Role Phone Mikael Marshall DO Primary Care Provider [phone] Levi Becker MD Attending Provider Mikael Marshall DO Attending Provider Care Teams Patient Care Team Team Status: Active Member Role Status Dates Mikael Marshall DO Primary Care Provider Active Patient Care Team Team Status: Active Member Role Status Dates Mikael Marshall DO Primary Care Provider Active Start: December 19, 2024 Levi Becker MD Attending Provider Active Start: December 19, 2024 Patient Care Team Team Status: Inactive Member Role Status Dates Mikael Marshall DO Primary Care Provider Active Start: February 20, 2025 End: February 20, 2025 Mikael Marshall DO Attending Provider Active Sta rt: February 20, 2025 End: February 20, 2025 Chief Complaint and Reason for Visit Chief Complaint Admit Date wellness February 20, 2025 8: 29am Reason for Visit Admit Date ASHD (arteriosclerotic heart disease) Oc tober 2024 8:29am Chronic bronchitis February 20, 2025 8: 29am Elevated cholesterol February 20, 2025 8 :29am Hypertension February 20, 2025 8: 29am Nicotine dependence February 20, 2025 8: 29am Overweight February 20, 2025 8: 29am Screening mammogram for breast cancer Oc tob2024 8:29am Wellness examination February 20, 2025 8 :29am Screening for colon cancer February 20, 2025 8:29am Allergies, Adverse Reactions, Alerts Allergen Type Severity Reaction Last Updated Verified Status [id number] Reductase Inhibitor Allergy Unknown Unknown Reaction February 8:33am Yes Active Social History Smoking Status Status Start Date End Date Date of Observa tion Smokes tobacco daily (finding) August 09, 2023 4:14pm Observation Status Observation Response Date of Response Legal Sex Female (finding) Sex Assigned At Female 1965 Family History Relationship Condition Age at Onset Recorded Date/T jalen father Heart disease Unknown Malignant neoplasm Unknown Hypertension Unknown Problems Active Problems Medical Problem Onset Date Status Comments Hyperlipidemia type II Unknown Active Subclavian arterial stenosis Unknown Active Nicotine dependence Unknown Active age [place] 24, ppd 1 Atherosclerosis of [place] ar teries of extremities with intermittent claudication, bilateral legs Unknown Active Screening mammogram for [facility] [facility] cancer Unknown Active Rotator cuff strain Unknown Active Elevated cholesterol Unknown Active Wellness examination Unknown Active Overweight Unknown Active Primary hypertension Unknown Active Carotid stenosis, right Unknown Active CTA: 80% right ICA - 2019,Carotid US: < 50% B/L ICA - 07/2023 Chronic bronchitis Unknown Active Hypertension Unknown Active ASHD (arteriosclerotic heart disease) Unknown Active LHC: occluded RCA, 4 0% LAD - 08/2015Stress NM: LVEF 60%, inferior reversible defect, no TID - 11/2024,LHC: PCI/stent RCA - 55880 Medications Medication Status Dose Units Route Directions Qty Days St art Date Stop Date End Date Instructions Adherence Amlodipine 2.5 mg tablet Active 2.5 MG PO Daily November 12, 2024 11:15a m Complies with drug therapy Amlodipine 5 mg tablet Discont inued 5 MG PO Daily August 09, 2023 12:00a m November 12, 2024 11:15 am Clopidogrel 75 mg tablet Active 75 MG PO Daily August 09, 2023 12:00a m Complies with drug therapy Rosuvastati n 40 mg tablet Active 40 MG PO Daily August 09, 2023 12:00a m Complies with drug therapy Metoprolol Succinate 50 mg tablet extended release 24 hr Active 50 MG PO Daily August 09, 2023 12:00a m Complies with drug therapy Ezetimibe 10 mg tablet Active 10 MG PO Daily August 09, 2023 12:00a m Complies with drug therapy Isosorbide Mononitrate 120 mg tablet extended release 24 hr Active 120 MG PO Daily August 10, 2023 12:00a m Complies with drug therapy Ranolazine 500 mg tablet extended release 12 hr Active 500 MG PO Every 12 hours August 10, 2023 12:00a m Complies with drug therapy Relevant Diagnostic Tests and/or Laboratory Data Laboratory Results Test Collection Date/Time Result Date/Time Result Interpretation Reference Range Result Comment Performing Site Anion Gap December 19, 2024 7:06am December 19, 2024 7:06am 12.9 Basophils # (Auto) December 19, 2024 7:06am December 19, 2024 7:06am 0.1 10 3/uL 0.0-0.1 BUN/Creatinin e Ratio December 19, 2024 7:06am December 19, 2024 7:06am 16.8 Basophils (%) (Auto) December 19, 2024 7:06am December 19, 2024 7:06am 1.1 % 0.2-2.0 Blood Urea Nitrogen December 19, 2024 7:06am December 19, 2024 7:06am 16.0 mg/dL 7.0-18.0 Eosinophils # (Auto) December 19, 2024 7:06am December 19, 2024 7:06am 0.2 10 3/uL 0.0-0.7 Calcium Level December 19, 2024 7:06am December 19, 2024 7:06am 9.2 mg/dL 8.5-10.1 Eosinophils (%) (Auto) December 19, 2024 7:06am December 19, 2024 7:06am 2.7 % 0.9-7.0 Chloride Level December 19, 2024 7:06am December 19, 2024 7:06am 103 mmol/L 98-107 Hematocrit December 19, 2024 7:06am December 19, 2024 7:06am 41.9 % 36.0-48.0 Carbon Dioxide Level December 19, 2024 7:06am December 19, 2024 7:06am 26.1 mmol/L 21.0-32.0 Hemoglobin December 19, 2024 7:06am December 19, 2024 7:06am 14.2 g/dL 12.0-16.0 Creatinine December 19, 2024 7:06am December 19, 2024 7:06am 0.95 mg/dL 0.55-1.02 Immature Granulocyte # (Auto) December 19, 2024 7:06am December 19, 2024 7:06am 0.01 10 3/uL 0.00-0.03 Estimated GFR () December 19, 2024 7:06am December 19, 2024 7:06am >60 >=60 mL/min/1.7 3m 2 Immature Granulocyte % (Auto) December 19, 2024 7:06am December 19, 2024 7:06am 0.2 % 0.0-0.5 Estimated GFR (Non- December 19, 2024 7:06am December 19, 2024 7:06am >60 >=60 mL/min/1.7 3m 2 Lymphocytes # (Auto) December 19, 2024 7:06am December 19, 2024 7:06am 2.3 10 3/uL 1.2-3.8 Glucose Level December 19, 2024 7:06am December 19, 2024 7:06am 82 mg/dL 74-106 Lymphocytes (%) (Auto) December 19, 2024 7:06am December 19, 2024 7:06am 40.0 % 20.5-60.0 Potassium Level December 19, 2024 7:06am December 19, 2024 7:06am 4.0 mmol/L 3.5-5.1 Mean Corpuscular Hemoglobin December 19, 2024 7:06am December 19, 2024 7:06am 29.7 pg 26.7-34.0 Sodium Level December 19, 2024 7:06am December 19, 2024 7:06am 138 mmol/L 136-145 Mean Corpuscular Hemoglobin Concent December 19, 2024 7:06am December 19, 2024 7:06am 33.9 g/dL 29.9-35.2 Mean Corpuscular Volume December 19, 2024 7:06am December 19, 2024 7:06am 87.7 fL 81.0-99.0 Monocytes # (Auto) December 19, 2024 7:06am December 19, 2024 7:06am 0.6 10 3/uL 0.3-0.8 Monocytes (%) (Auto) December 19, 2024 7:06am December 19, 2024 7:06am 10.3 % 1.7-12.0 Mean Platelet Volume December 19, 2024 7:06am December 19, 2024 7:06am 10.5 fL 9.5-13.5 Neutrophils # (Auto) December 19, 2024 7:06am December 19, 2024 7:06am 2.6 10 3/uL 1.4-6.5 Neutrophils (%) (Auto) December 19, 2024 7:06am December 19, 2024 7:06am 45.7 % 43.0-75.0 Platelet Count December 19, 2024 7:06am December 19, 2024 7:06am 133 10 3/uL Below low normal 150-450 Red Blood Count December 19, 2024 7:06am December 19, 2024 7:06am 4.78 10 6/uL 4.20-5.40 Red Cell Distribution Width December 19, 2024 7:06am December 19, 2024 7:06am 13.2 % 11.0-15.0 Corrected White Blood Count December 19, 2024 7:06am December 19, 2024 7:06am 5.7 10 3/uL 4.0-11.0 Vital Signs Vital Reading Result Reference Range Collection Date/Time Height 65 [in_i] February 20 8:35am Weight 80.34 kg February 20 8:35am Heart Rate 66 /min 60-100 February 20, 8:35am Respiratory rate 12 /min -February 8:35am BP Systolic 105 mm[Hg] 100-140 February 20, 8:35am BP Diastolic 67 mm[Hg] 60-100 February 20, 8:35am BMI (Body Mass Index) 29.5 kg/m2 Octobe 2024 8:35am Advance Directives Advance Directive Response Recorded Date/ Time Advance Directives No June 12, 2023 4:14pm Insurance Providers Guarantor Kalee Iqbal Address [address] [place] [id number] Contact Info. Home Phone: Payer Policy Id Subscriber's Name Subscriber Id Effectiv e Date Expiration Date [employer] [id number] Kalee Iqbal [id number] Encounters Encounter Location(s) Arrival/Admit Date Discharge/Depart Date Provider(s) Non-patient / Non-visit -[facility] December 19, 2024 7:06am Levi Lacey MD Departed Physician/Prov ider Office Visit -[facility] February 20, 2025 8:29am February 20, 2025 9:05am Mikael Marshall , DO Recent Diagnosis Onset Date Admit Date ASHD (arteriosclerotic heart disease) Unknown February 20, 2025 8:29am Chronic bronchitis Unknown February 20, 2025 8:29am Elevated cholesterol Unknown February 8:29am Hypertension Unknown February 20 8:29am Nicotine dependence Unknown February 20, 2025 8:29am Overweight Unknown February 20 8:29am Screening mammogram for breast cancer Unknown February 20, 2025 8:29am Wellness examination Unknown February 8:29am Screening for colon cancer Unknown Octob er 2024 8:29am Assessments Diagnosis Onset Date Resolution Status Admit Date ASHD (arteriosclerotic heart disease) acute February 20 8:29am Chronic bronchitis acute Octobe r 2024 8:29am Elevated cholesterol acute Octo nathaniel 2024 8:29am Hypertension acute February 20, 2025 8:29am Nicotine dependence acute Octob er 2024 8:29am Overweight acute February 20, 8:29am Screening mammogram for breast cancer acute February 20 8:29am Wellness examination acute Octo 2024 8:29am Screening for colon cancer noneactiv e February 20, 2025 8:29am Plan of Treatment Author Mikael Rolando [facility] Authored February 20, 2025 9: 02am This patient is stable witho ut activity related chest pain, dyspnea or lightheadedness. I instructed them to continue exercise at least 3x weekly and consume a low salt, low fat, high fiber diet. I instructed them to continue secondary prevention measures in reducing risks for recurrent events. C: 08/2015, 01/2025 PCI/stent RCA Continue Plavix, rosuvastatin, Zetia, Imdur and Metoprolol without interruption I have instructed this patient on a low fat, high fiber diet and exercise. I have discussed the primary and secondary prevention benefits attributed to lowering LDL cholesterol. I have also discussed the medical treatment of elevated cholesterol, which is based on the 10 year ASCVD risk. Continue Rosuvastatin and Zetia without interruption [id number] not affordable I have instructed this patient to consume a healthy, low-fat, low-salt diet. I have also encouraged them to continue exercise with weight loss to achieve/maintain a BMI < 30. I have instructed this patient on the correct procedure for obtaining home BP measurements: - rest for 5 minutes w/o talking. - positioned w/ feet on floor and arms supported. - average best 2/3 readings w/ goal < 135/85. - update office w/ home readings in 2 weeks. Continue Amlodipine without interruption This patient has been encouraged to quit tobacco use immediately. They are aware of the hazards associated with tobacco use, including but not limited to respiratory infections, vascular disease and cancers. Scheduled for yearly LDCT chest for lung cancer screening. She was instructed to check for insurance coverage for LDCT lungs - ongoing tobacco use, > 20 pack years Instructed on smoking cessation. Mucolytics as needed No inhalers necessary I have instructed this patient on a low-fat, high-fiber diet. I have also instructed them to reduce calories, portions sizes, sweet drinks and snacks. I have also recommended they exercise for 30 minutes, 3-5 times weekly. They are aware of the comorbid conditions associated with excessive weight: Diabetes, HTN, Hyperlipidemia, CAD and arthritis. I have instructed this patient on the recommended lifestyle changes, which includes a low fat, high fiber diet along with a regular exercise routine. I have also reviewed the recommended age-appropriate preventive testing for this patient. I have also reviewed the recommended vaccines for their age and risk factors. I have instructed this patient on monthly SBE and recommended yearly mammograms. Completed in July, This is an asymptomatic, low risk patient, who is due for a screening colonoscopy. There has been no change in appetite, weight or bowel habits. There is no history of abdominal pain, heartburn, dysphagia, melena or hematochezia. Future Tests Future scheduled test information is unavailable Pending Tests Test Name Ordered Date Scheduled Date MM screening mammo BI w/CAD February 20, 2025 8: 49am Comprehensive Metabolic Panel February 20, 2025 8:48am Future Visits Future appointment information is unavailable Referrals to Other Providers Referral information is unavailable Future Procedures Procedure Name Ordered Date Scheduled Date Lipid Panel February 20, 2025 8:48am AMB Cologuard February 20, 2025 8:57am Future Medications Future medication information is unavailable Patient Instructions Patient instructions are unavailable
--- OUTSIDE RECORDS SUMMARY | 2025-02-23 08:38 | XMS_ITS | Clinical Summary ---
Author Organization [facility] Address [address] [place] [address] Care Team Providers Care Floor Installation Mechanic Name Role Phone RolandoMikael Primary Care Provider [phone] Allergies No known active allergies Medications isosorbide mononitrate ER (Imdur) 120 mg 24 hr tabletIndications :Chest pain, unspecified type TAKE 1 TABLET BY MOUTH IN THE MORNING. 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 90 tablet 3 11/11/19 25 2025 Active amLODIPine (Norvasc) 2.5 mg tabletIndications :Essential hypertension Take 1 tablet (2.5 mg) by mouth in the morning. 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 180 tablet 3 11/11/19 25 2025 Active ezetimibe (Zetia) 10 mg tabletIndications :Hyperlipidemia, unspecified hyperlipidemia type TAKE 1 TABLET BY MOUTH AT BEDTIME 90 tablet 3 01/27/20 25 Active metoprolol succinate XL (Toprol-XL) 50 mg 24 hr tabletIndications :Palpitations TAKE 1 TABLET BY MOUTH IN THE MORNING 90 tablet 3 01/27/20 25 Active ezetimibe (Zetia) 10 mg tabletIndications :Hyperlipidemia, unspecified hyperlipidemia type TAKE 1 TABLET BY MOUTH AT BEDTIME 90 tablet 11/05/19 25 2024 Discontinued metoprolol succinate XL (Toprol-XL) 50 mg 24 hr tabletIndications :Palpitations TAKE 1 TABLET BY MOUTH IN THE MORNING 90 tablet 11/05/19 25 2024 Discontinued Active Problems Problem Noted Date Diagnosed Date Abnormal stress test 12/04/2024 Assessment & Plan (12/25/2024 9:21 AM EDT): No associated orders from this encounter found during lookback period of 72 hours. Carotid artery stenosis 06/23/2022 Overview (06/23/2022): duplex ultrasound suggested more than 70 percent stenosis in the right carotid artery. CT angiogram of the neck in 2019 confirmed 80% stenosis of the right internal carotid artery. This is asymptomatic at this time. Recent carotid duplex ultrasound February 2021 done at [facility] showed mild right and moderate left carotid [...] stable Coronary arteriosclerosis 02/27/2022 Overview (06/23/2022): RCA STOCK ANALYST CCS 2 angina , inferior ischemia and [...] Encounters Date Type Department Care Team Description 01/24/[address] [address] Levi Becker MD Hyperlipidemia, unspecified hyperlipidemia type; Palpitations 12/25/2024 9:30 AM EDT - 12/25/2024 10:30 AM EDT Surgery [facility] Heart formerly [facility] [address] [place] [address] Levi Becker MD Coronary angiography 12/25/2024 8:40 AM EDT - 12/25/2024 7:01 PM EDT Hospital Encounter [facility] [place] [facility] [address] [place] [address] Levi Beckre MD Coronary arteriosclerosis (Primary Dx); Abnormal stress test Discharge Disposition: Home or Self Care (01) 12/25/2024 Travel 12/19/[address] [facility] [address] [facility] [address] Nick Braxton MD 12/04/[address] [facility] [address] [facility] [place] [address] Andreina Delacruz MA 12/01/[address] [facility] [address] [place] [address] Nick Braxton MD 11/26/[address] [facility] [address] [facility] [place] [address] ProviderNick MD from Last 3 Months Family History Medical [...] Information Value Date Recorded Sex Assigned at Female 12/25/2024 8:40 AM EDT Legal Sex Female 11:42 PM EDT Gender Identity Female 12/25/2024 8:40 AM EDT Sexual Orientation Heterosexual or Straight 11/2024 8:40 AM EDT Last Filed Vital Signs Vital Sign Reading Time Taken Comments Blood Pressure 132/79 12/25/2024 7:00 PM EDT Pulse 55 12/25/2024 7:00 PM EDT Temperature - - Respiratory Rate 16 12/25/2024 7:00 PM EDT Oxygen Saturation 95% 12/25/2024 7:00 PM EDT Inhaled Oxygen Concentration - - Weight 78.9 kg (174 lb) 11/10/2024 2:23 PM EDT Height 162.6 cm (5' 4 ) 11/10/2024 2:23 PM EDT Body Mass Index 29.87 11/10/2024 2:23 PM EDT Plan of Treatment Upcoming Encounters Date Type Department Care Team (Late st Contact Info) Description 02/23/2025 9:00 AM EDT Follow-Up [facility] [address] [place] [address] Levi Becker MD [address] [facility] [address] [facility] [place] [address] Health Maintenance Due Date Last Done Comments CT Colonography 1964 Colonoscopy 1964 FOBT 1964 Sigmoidoscopy 1964 Depression Screening 1976 Pneumococcal Vaccine: Pediat rics (0 to 5 Years) and At-Risk Patients (6 to 64 Years) (1 of 2 - PCV) 10/14/1983 Pap Smear 1985 Adult Tetanus 1986 Cervical Cancer Screening 1994 HPV/Cotest 1994 Mammogram 2004 Zoster Vaccines (1 of 2) 2014 FIT 12/23/2022 12/23/2021 Colorectal Cancer Screening 12/23/2024 FIT-DNA 12/23/2024 12/23/2021 COVID-19 Vaccine ( - 2023-2 5 season) 2025 Influenza Vaccine (#1) 2025 HIB Vaccines Aged [...] on patient's age to complete this topic Medical Devices Implanted Type Area Cutter Finisher Device Identifier Shelf Expiration Date Model / Serial / Lot Stent,Synergy Mr 2.50 X 12 - [id number] Implanted:Qty : 1 on 12/25/2024 by Levi Becker MD at [facility] Drug Eluting Stent Left: Coronary Strands [id number] 06/25/2026 [id number] / / [id number] Procedures Procedure Name Priority Date/Time Associated Diagnosis Comments ACTIVATED CLOTTING TIME Routine 12/25/2024 4:29 PM EDT POCT ACTIVATED CLOTTING TIME Routine 12/25/2024 1:10 PM EDT ECG 12-LEAD Routine 12/25/2024 11:33 AM EDT ARCH AORTAGRAM Routine 12/25/2024 11:09 AM EDT Abnormal stress test PERC CORONARY INTERVENTION Routine 12/25/2024 11:09 AM EDT Abnormal stress test LEFT HEART CATH Routine 12/25/2024 11:09 AM EDT Abnormal stress test CORONARY ANGIOGRAPHY Routine 12/25/2024 11:09 AM EDT Abnormal stress test ACTIVATED CLOTTING TIME Routine 12/25/2024 11:05 AM EDT ACTIVATED CLOTTING TIME Routine 12/25/2024 10:24 AM EDT ECG 12-LEAD Routine 12/25/2024 9:20 AM EDT BASIC METABOLIC PANEL Routine 12/19/2024 10:05 AM EDT CBC Routine 12/19/2024 10:05 AM EDT LEXISCAN STRESS MYOCARDIAL PERFUSION IMAGING Routine 11/28/2024 8:39 AM EDT from Last 3 Months Results * (ABNORMAL) Activated clotting time (12/25/2024 4:29 PM EDT) Only the most recent of3 resultswithin the time period is included. Activated Clotting Time 171(H) 82 - 152 s 12/25/2024 4:29 PM EDT [facility] Blood Venous blood specimen / Unknown 12/25/2024 4:29 PM EDT 12/25/2024 4:29 PM EDT us Levi Becker MD LAB POINT OF CARE TE ST DOCKED DEVICE UNSOLICITED RESULTS Final Result [facility] [address] [place] [address] * (ABNORMAL) POCT activated clotting time manually resulted (12/25/2024 1:10 PM EDT) Activated Clotting Time POC 171(A) 82 - 152 sec Blood Venous blood specimen / Unknown 12/25/2024 1:10 PM EDT us Levi Becker MD POINT OF CARE TEST ENTER/BERHANE T ORDERABLES Final Result * ECG 12 lead (12/25/2024 11:33 AM EDT) Only the most recent of2 resultswithin the time period is included. Ventricular Rate 58 BPM GE MUSE Atrial Rate 58 BPM GE MUSE MS Interval 162 ms GE MUSE QRS DURATION 162 ms GE MUSE QT Interval 460 ms GE MUSE QTC CALCULATION(BAZE TT) 451 ms GE MUSE P [place] 60 degrees GE MUSE R-[place] 17 degrees GE MUSE T Wave [place] 120 degrees GE MUSE 12/25/2024 11:2 9 AM EDT 12/25/2024 12:50 PM EDT Impressions GE MUSE - 12/25/2024 12:50 PM EDT Sinus bradycardia Left bundle branch block Abnormal ECG When compared with ECG of 25-DEC-2024 09:14, (unconfirmed) No significant change was found Confirmed by Fabio Ceballos ([id number]) on 12/25/2024 12:50:30 PM Narrative Procedure Note Fabio Ceballos MD - 12/25/2024 IMPRESSION: Sinus bradycardia Left bundle branch block Abnormal ECG When compared with ECG of 25-DEC-2024 09:14, (unconfirmed) No significant change was found Confirmed by Fabio Ceballos ([id number]) on 12/25/2024 12:50:30 PM us Levi Becker MD ECG ORDERABLES Final Result GE MUSE * ARCH AORTAGRAM (12/25/2024 11:09 AM EDT) Anatomical Region Laterality Modality Other Narrative 12/25/2024 12:18 PM EDT PROCEDURE PHYSICIAN: Levi Becker MD . Indications: Kalee Iqbal is a 59 y.o. female who has coronary artery disease and peripheral vascular disease who was evaluated recently in cardiology clinic because of accelerating symptoms of chest pain. Stress test showed inferior ischemia. She was referred for cardiac catheterization. She is also known to have peripheral vascular disease status post bilateral common iliac artery stenting in the past. Also she has moderate right carotid artery disease by recent ultrasound. That ultrasound showed retrograde flow in the right vertebral artery. Assistants: Cardiovascular Fellow Dr Chelsey Peter. Procedure Performed: Bilateral selective coronary angiogram. Left heart catheterization. Successful balloon angioplasty and drug eluting stenting of 99% stenosis in the ostial to proximal circumflex coronary artery, with reduction of the lesion to 0% by a Synergy XD 2.5 x 12 mm drug eluting stent, post-dilated to 2.5 mm at high pressures. Administration of intracoronary nitroglycerin. Access into the right common femoral artery under ultrasound guidance. Limited right common femoral angiogram. Methods: Procedure was explained to the patient with risks and benefits; she signed informed consent. she was brought to the electrical laboratory technician in a fasting state. The groin area was prepped and draped in usual fashion. Micropuncture technique was used under ultrasound guidance for access in the right common femoral artery. Inner cannular angiography was performed followed by upsizing to a 6-Maldivian x 11 cm sheath. The 6-Maldivian JR4 catheter was navigated across the aortic valve over a wire and used to perform left heart catheterization with measurement of pressures. Pullback across the aortic valve was performed with measurement of pressures. Bilateral selective coronary angiography was then performed using 6-Maldivian JL4 diagnostic catheter for engagement of the left coronary artery and 6-Maldivian JR4 diagnostic catheter for engagement of the right coronary artery. Catheters were removed. Due to significant difference of pressure between the central aortic and the right arm noninvasive blood pressure we decided to proceed with aortic arch angiography. A 6 Maldivian angled pigtail catheter was advanced to the aortic arch and thoracic aortogram was performed with aortic arch angiography and angiography of the proximal segments of the great vessels using digital subtraction angiography. The catheter was removed. Heparin was administered intravenously and therapeutic ACT was confirmed during the rest of the procedure. A 6-Maldivian XB 3.5 guiding catheter was advanced and used to engage the left coronary ostium. Baseline JAIMIE flow was 3. A [employer] coronary guide wire was advanced to the ostium of the circumflex artery. Despite multiple maneuvering and adjustment of the shape of the distal wire there was inability to cross the ostial circumflex stenosis due to 90% degrees angulation at the ostium. In addition the severity of the stenosis was making the wire difficult to advance. This wire was changed to a Fielder wire which was advanced to the ostium of the circumflex. We gave the Fielder wire to a tight curve distally. After multiple maneuvering there was ability to advance the wire across the stenosis into the distal circumflex/obtuse marginal branch. A NC Emerge 3.0 x 15 mm non-compliant balloon was advanced and used to performed balloon angioplasty at the site of the stenosis with inflation up to 2 [place]. The balloon was retracted. Angiography was performed. additional dilatation was then performed using NC Emerge 2.5 x 8 mm noncompliant balloon inflated at the ostium of the circumflex up to 14 melida. Angiography was performed. A Synergy XD 2.5 x 16 mm drug-eluting stent was advanced to the ostial to proximal segment of the circumflex. With angiography it appeared that the stent was longer than desirable. The stent was retracted. Another Synergy XD 2.5 x 12 mm drug-eluting stent was advanced to the ostial to proximal circumflex. Angiography confirmed adequate length of the stent. This was deployed at 11 [place] across the stenosis and postdilated using a NC 2.5 x 8 mm non-compliant balloon inflated up to 20 Mel[place] throughout the length of the stented segment. Intracoronary nitroglycerin was administered followed by angiography which revealed excellent result with reduction of the stenosis to 0%, no evidence of dissection or perforation and JAIMIE 3 flow in the coronary artery and branches. The guiding catheter and wire were removed. The patient was loaded with clopidogrel 600 mg at the end of the procedure. Hemostasis will be achieved by manual compression in the femoral artery when the ACT is subtherapeutic. she tolerated the procedure well and was transferred back to the cardiovascular recovery area. Hemodynamic Data: RFA: 167/83 (116) LV: 179/7, 16 AO: 182/87 (121) Right arm non-invasive blood pressure: 116/88. Coronary angiography: This is a right-dominant circulation. Left Main: This arises from the left coronary cusp. It bifurcates into left anterior descending and circumflex vessels. This has mild disease but no obstructive lesions. Left anterior descending: it is a large vessel. The mid segment has a 50% stenosis. The rest of the LAD and diagonal branches have mild disease. Circumflex: This is a non-dominant vessel. It is a large vessel. The ostial to proximal segment has a 99% stenosis. There was heavy angulation of the takeoff of the circumflex from the left main. This lesion was reduced to 0% by balloon angioplasty and a Synergy XD drug-eluting stent. The circumflex gives rise to a large obtuse marginal branch which has mild disease. The true circumflex is of smaller caliber and has mild disease. Right coronary artery: This arises from the right coronary cusp. It is a dominant vessel. It is occluded in its proximal to mid segment. The occlusion is chronic. The distal vessel is seen filling via collateral circulation coming from the left coronary system. Thoracic aorta/aortic arch angiography: The ascending aorta appears to be of normal caliber. This was a type III arch. The innominate artery has a 90% ostial stenosis. The left carotid artery has a 50% stenosis at the ostium. The left subclavian artery appears calcified without significant stenosis. The left vertebral artery is a very large caliber vessel. The right vertebral artery appears to be of smaller caliber. Limited right common femoral angiography: This showed access to be in the femoral artery with no obstructive lesions seen in the common femoral artery and its proximal branches. 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 Plan: Medical therapy for coronary artery disease. Aspirin 81 mg daily for life. Dual antiplatelet therapy with Aspirin 81 mg daily for life and Clopidogrel 75 mg daily for 12 months. Statin therapy for life. Risk factor control. Follow up in Cardiology Clinic. The patient will be evaluated in follow-up for revascularization of her innominate artery. Levi Becker MD Study Details Abnormal stress test [R94.39], Coronary artery disease involving galena coronary artery of galena heart with unstable angina pectoris ([facility]) [I25.110] us Levi Becker MD CV INVASIVE VASCULAR PROCEDU RES Final Result * CORONARY ANGIOGRAPHY, LEFT HEART CATH, PERC CORONARY INTERVENTION (12/25/2024 11:09 AM EDT) Anatomical Region Laterality Modality Other Narrative 12/25/2024 12:18 PM EDT PROCEDURE PHYSICIAN: Levi Becker MD . Indications: Kalee Iqbal is a 59 y.o. female who has coronary artery disease and peripheral vascular disease who was evaluated recently in cardiology clinic because of accelerating symptoms of chest pain. Stress test showed inferior ischemia. She was referred for cardiac catheterization. She is also known to have peripheral vascular disease status post bilateral common iliac artery stenting in the past. Also she has moderate right carotid artery disease by recent ultrasound. That ultrasound showed retrograde flow in the right vertebral artery. Assistants: Cardiovascular Fellow Dr Chelsey Peter. Procedure Performed: Bilateral selective coronary angiogram. Left heart catheterization. Successful balloon angioplasty and drug eluting stenting of 99% stenosis in the ostial to proximal circumflex coronary artery, with reduction of the lesion to 0% by a Synergy XD 2.5 x 12 mm drug eluting stent, post-dilated to 2.5 mm at high pressures. Administration of intracoronary nitroglycerin. Access into the right common femoral artery under ultrasound guidance. Limited right common femoral angiogram. Methods: Procedure was explained to the patient with risks and benefits; she signed informed consent. she was brought to the electrical laboratory technician in a fasting state. The groin area was prepped and draped in usual fashion. Micropuncture technique was used under ultrasound guidance for access in the right common femoral artery. Inner cannular angiography was performed followed by upsizing to a 6-Maldivian x 11 cm sheath. The 6-Maldivian JR4 catheter was navigated across the aortic valve over a wire and used to perform left heart catheterization with measurement of pressures. Pullback across the aortic valve was performed with measurement of pressures. Bilateral selective coronary angiography was then performed using 6-Maldivian JL4 diagnostic catheter for engagement of the left coronary artery and 6-Maldivian JR4 diagnostic catheter for engagement of the right coronary artery. Catheters were removed. Due to significant difference of pressure between the central aortic and the right arm noninvasive blood pressure we decided to proceed with aortic arch angiography. A 6 Maldivian angled pigtail catheter was advanced to the aortic arch and thoracic aortogram was performed with aortic arch angiography and angiography of the proximal segments of the great vessels using digital subtraction angiography. The catheter was removed. Heparin was administered intravenously and therapeutic ACT was confirmed during the rest of the procedure. A 6-Maldivian XB 3.5 guiding catheter was advanced and used to engage the left coronary ostium. Baseline JAIMIE flow was 3. A [employer] coronary guide wire was advanced to the ostium of the circumflex artery. Despite multiple maneuvering and adjustment of the shape of the distal wire there was inability to cross the ostial circumflex stenosis due to 90% degrees angulation at the ostium. In addition the severity of the stenosis was making the wire difficult to advance. This wire was changed to a Fielder wire which was advanced to the ostium of the circumflex. We gave the Fielder wire to a tight curve distally. After multiple maneuvering there was ability to advance the wire across the stenosis into the distal circumflex/obtuse marginal branch. A NC Emerge 3.0 x 15 mm non-compliant balloon was advanced and used to performed balloon angioplasty at the site of the stenosis with inflation up to 2 [place]. The balloon was retracted. Angiography was performed. additional dilatation was then performed using NC Emerge 2.5 x 8 mm noncompliant balloon inflated at the ostium of the circumflex up to 14 melida. Angiography was performed. A Synergy XD 2.5 x 16 mm drug-eluting stent was advanced to the ostial to proximal segment of the circumflex. With angiography it appeared that the stent was longer than desirable. The stent was retracted. Another Synergy XD 2.5 x 12 mm drug-eluting stent was advanced to the ostial to proximal circumflex. Angiography confirmed adequate length of the stent. This was deployed at 11 [place] across the stenosis and postdilated using a NC 2.5 x 8 mm non-compliant balloon inflated up to 20 [place] throughout the length of the stented segment. Intracoronary nitroglycerin was administered followed by angiography which revealed excellent result with reduction of the stenosis to 0%, no evidence of dissection or perforation and JAIMIE 3 flow in the coronary artery and branches. The guiding catheter and wire were removed. The patient was loaded with clopidogrel 600 mg at the end of the procedure. Hemostasis will be achieved by manual compression in the femoral artery when the ACT is subtherapeutic. she tolerated the procedure well and was transferred back to the cardiovascular recovery area. Hemodynamic Data: RFA: 167/83 (116) LV: 179/7, 16 AO: 182/87 (121) Right arm non-invasive blood pressure: 116/88. Coronary angiography: This is a right-dominant circulation. Left Main: This arises from the left coronary cusp. It bifurcates into left anterior descending and circumflex vessels. This has mild disease but no obstructive lesions. Left anterior descending: it is a large vessel. The mid segment has a 50% stenosis. The rest of the LAD and diagonal branches have mild disease. Circumflex: This is a non-dominant vessel. It is a large vessel. The ostial to proximal segment has a 99% stenosis. There was heavy angulation of the takeoff of the circumflex from the left main. This lesion was reduced to 0% by balloon angioplasty and a Synergy XD drug-eluting stent. The circumflex gives rise to a large obtuse marginal branch which has mild disease. The true circumflex is of smaller caliber and has mild disease. Right coronary artery: This arises from the right coronary cusp. It is a dominant vessel. It is occluded in its proximal to mid segment. The occlusion is chronic. The distal vessel is seen filling via collateral circulation coming from the left coronary system. Thoracic aorta/aortic arch angiography: The ascending aorta appears to be of normal caliber. This was a type III arch. The innominate artery has a 90% ostial stenosis. The left carotid artery has a 50% stenosis at the ostium. The left subclavian artery appears calcified without significant stenosis. The left vertebral artery is a very large caliber vessel. The right vertebral artery appears to be of smaller caliber. Limited right common femoral angiography: This showed access to be in the femoral artery with no obstructive lesions seen in the common femoral artery and its proximal branches. 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 Plan: Medical therapy for coronary artery disease. Aspirin 81 mg daily for life. Dual antiplatelet therapy with Aspirin 81 mg daily for life and Clopidogrel 75 mg daily for 12 months. Statin therapy for life. Risk factor control. Follow up in Cardiology Clinic. The patient will be evaluated in follow-up for revascularization of her innominate artery. Levi Becker MD Study Details Abnormal stress test [R94.39], Coronary artery disease involving galena coronary artery of galena heart with unstable angina pectoris ([facility]) [I25.110] Result [facility] Levi Becker MD CV CARDIAC CATH PROCEDURES F inal Result * CBC (12/19/2024 10:05 AM EDT) Blood Venous blood specimen / Unknown Result [facility] Provider LAB BLOOD ORDERABLES Izabella l Result * Basic metabolic panel (12/19/2024 10:05 AM EDT) Blood Venous blood specimen / Unknown Result [facility] Provider LAB BLOOD ORDERABLES Izabella l Result * Lexiscan Stress Myocardial Perfusion Imaging (11/28/2024 8:39 AM EDT) Anatomical Region Laterality Modality Other Result [facility] Provider CV STRESS PROCEDURES Izabella l Result from Last 3 Months Insurance [facility] 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
--- OUTSIDE RECORDS SUMMARY | 2025-02-23 08:41 | XMS_ITS | CCD ---
Author Organization [facility] CliniSyne Care Team Providers Care Food Service Representative Name Role Phone MIKAEL MCCORMICK Referring Unavailable [...] Unavailable BALL, DR REAL Primary Care Unavailable Mikael Mccormick Unavailable TAYLA BECKER Referring Unavailable MOUKARBEL, TAYLA Attending Unavailable MOUKARBLAVINIA, TAYLA Admitting Unavailable MOUKARBEL, TAYLA Attending Unavailable MOUKARBLAVINIA, TAYLA Referring Unavailable Mikael Mccormick DO Primary Care Provider [phone] Tayla Becker MD, V Attending Provider Mikael Mccormick DO Attending Provider [phone] Allergies Allergy Classification Reported Allergen(s) Allergy Type Date of Onset Reaction(s) Facility (1 source) HMG-CoA reductase inhibitor Drug allergy Unknown [facility] [email or web address] Other Medications Current Medications Medication Drug Class(es) Dates Sig (Normalized) Sig (Original) amLODIPine 2.5 mg oral tablet (7 sources) Dihydropyridine Calcium Channel Quinn Start: 11-12-2024 take 1 tablet by mouth once daily Amlodipine 2.5 mg tablet Active 2.5 MG PO Daily November 12, 2024 11:15am Complies with drug therapy Start: 08-09-2023 End: 11-12-2024 take 1 tablet by mouth once daily Amlodipine 5 mg tablet Discontinued 5 MG PO Daily August 09, 2023 12:00am November 12, 2024 11:15am take 1 tablet by sharon th every twenty-four hours amLODIPine Besylate 5 MG 1 tablet Orally Once a day Active clopidogrel 75 mg oral tablet (6 sources) [id number] Platelet Inhibitor Start: 08-09-2023 take 1 tablet by mouth once daily Clopidogrel 75 mg tablet Active 75 MG PO Daily August 09, 2023 12:00am Complies with drug therapy take 1 tablet by sharon th every twenty-four hours Clopidogrel Bisulfate 75 MG 1 tablet Orally Once a day Active ezetimibe 10 mg oral tablet (6 sources) Dietary Cholesterol Absorption Inhibitor Start: 08-09-2023 take 1 tablet by mouth once daily Ezetimibe 10 mg tablet Active 10 MG PO Daily August 09, 2023 12:00am Complies with drug therapy take 1 tablet by sharon th every twenty-four hours Zetia 10 MG 1 tablet Orally Once a day Active 24 hr isosorbide mononitrate 120 mg extended release oral tablet (6 sources) Nitrate Vasodilator Start: 08-10-2023 take 1 tablet by mouth once daily, then take 1 tablet by mouth every twenty-four hours Isosorbide Mononitrate 120 mg tablet extended release 24 hr Active 120 MG PO Daily August 10, 2023 12:00am Complies with drug therapy Imdur Active 24 hr metoprolol succinate 50 mg extended release oral tablet (6 sources) beta-Adrenergic Quinn Start: 08-09-2023 take 1 tablet by mouth once daily Metoprolol Succinate 50 mg tablet extended release 24 hr Active 50 MG PO Daily August 09, 2023 12:00am Complies with drug therapy take 1 tablet by sharon th every twenty-four hours Metoprolol Succinate ER 50 MG 1 tablet Orally Once a day Active 12 hr ranolazine 500 mg extended release oral tablet (6 sources) Anti-anginal Start: 08-10-2023 take 1 tablet by mouth every twelve hours Ranolazine 500 mg tablet extended release 12 hr Active 500 MG PO Every 12 hours August 10, 2023 12:00am Complies with drug therapy Ranexa Active rosuvastatin calcium 40 mg oral tablet (6 sources) HMG-CoA Reductase Inhibitor Start: 08-09-2023 take 1 tablet by mouth once daily Rosuvastatin 40 mg tablet Active 40 MG PO Daily August 09, 2023 12:00am Complies with drug therapy take 1 tablet by sharon th every twenty-four hours Crestor 40 MG 1 tablet Orally Once a day Active Problems Problem Classification Problem Date Documented Da te Episodic/Chronic Chronic obstructive pulmonary disease and bronchiectasis (8 sources) Chronic bronchitis; Translations: [Unspecified chronic bronchitis] 08-08-2023 Chronic Coronary atherosclerosis and other heart disease (16 sources) Coronary arteriosclerosis; Translations: [Atherosclerotic heart disease of [place] coronary artery without angina pectoris] Onset: 06-23-2022 Chronic Comment on above: LHC: occluded RCA, 4 0% LAD - 08/2015Stress NM: LVEF 60%, inferior reversible defect, no TID - 11/2024,LHC: PCI/stent RCA - Disorders of lipid metabolism (20 sources) Mixed hyperlipidemia; Translations: [Pure hypercholesterolemi a] Onset: 11-19-2021 Chronic Essential hypertension (19 sources) Hypertensive disorder; Translations: [Essential (primary) hypertension] Onset: 02-27-2022 Chronic Occlusion or stenosis of precerebral arteries (8 sources) Right carotid artery stenosis; Translations: [Occlusion and stenosis of right carotid artery] Onset: 06-23-2022 08-09-2023 Chronic Comment on above: CTA: 80% right ICA - 2019,Carotid US: < 50% B/L ICA - 07/2023 Other circulatory disease (3 sources) Stricture of artery; Translations: [Stricture of artery] Onset: 11-10-2024 Chronic Other circulatory disease (3 sources) Stricture of artery; Translations: [Stricture of artery] Onset: 06-23-2022 Chronic Other circulatory disease (4 sources) Subclavian artery stenosis; Translations: [Stricture of artery] 08-09-2023 Chronic Other nutritional; endocrine; and metabolic disorders (5 sources) Overweight; Translations: [Overweight] 08-10-2023 Episodic Other nutritional; endocrine; and metabolic disorders (3 sources) Overweight; Translations: [Overweight] 08-10-2023 Episodic Other screening for suspected conditions (not mental disorders or infectious disease) (11 sources) Encounter for screening mammogram for malignant neoplasm of breast; Translations: [Patient encounter status] Onset: 04-14-2022 Episodic Peripheral and visceral atherosclerosis (10 sources) Intermittent claudication of bilateral lower limbs co-occurrent and due to atherosclerosis; Translations: [Atherosclerosis of [place] arteries of extremities with intermittent claudication, bilateral legs] Onset: 11-10-2024 Chronic Residual codes; unclassified (1 source) Family history of malignant neoplasm of trachea, bronchus and lung; Translations: [FAM HX MALIG NEOPLSM TRACH BRON LNG] Onset: 04-19-2022 Episodic Sprains and strains (6 sources) Strain of rotator cuff of shoulder; Translations: [Strain of muscle(s) and tendon(s) of the rotator cuff of unspecified shoulder, initial encounter] 08-10-2023 Episodic Substance-related disorders (14 sources) Tobacco user; Translations: [Nicotine dependence, cigarettes, uncomplicated] Chronic Comment on above: age started 24, ppd 1 Results Test Name Value Interpretation Reference Range Facility [facility] 12-25-2024 History Of Present Illness Kalee Richter is a 59 y.o. female presenting with abnormal stress test. 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 Echocardiogram done on 07/2019 showed EF 65% with normal right ventricular systolic function. Past Medical History Medical History[1] Surgical History Surgical History[2] Social History Social History Socioeconomic History Marital status: Single Spouse name: Not on file Number of children: Not on file Years of education: Not on file Highest education level: Not on file Occupational History Not on file Tobacco Use Smoking status: Every Day Current packs/day: 0.50 Types: Cigarettes Smokeless tobacco: Never Substance and Sexual Activity Alcohol use: Yes Comment: occasional Drug use: Never Sexual activity: Defer Other Topics Concern Not on file Social History Narrative Not on file Social Drivers of Health Financial Resource Strain: Not on file Food Insecurity: Not on file Transportation Needs: Not on file Physical Activity: Not on file Stress: Not on file Social Connections: Not on file Intimate Partner Violence: Unknown (07/12/2023) [place] Safety & Environment Fear of Current or Ex-Partner: Not on file Emotionally Abused: Not on file Physically Abused: Not on file Sexually Abused: Not on file Physically or Sexually Abused: Not on file Housing Stability: Not on file Family History Family History[3] Allergies Allergies[4] Medications Prescriptions Prior to Admission[5] Review of Systems Constitutional: Negative for chills and fever. Respiratory: Negative for chest tightness and shortness of breath. Gastrointestinal: Negative for abdominal pain, nausea and vomiting. Genitourinary: Negative for difficulty urinating and dysuria. Neurological: Negative for dizziness and light-headedness. Last Recorded Vitals Visit Vitals BP 127/83 Pulse 58 Resp 14 SpO2 98% Smoking Status Every Day Physical Exam Constitutional: General: She is not in acute distress. Appearance: Normal appearance. HENT: Right Ear: External ear normal. Left Ear: External ear normal. Nose: Nose normal. Eyes: Extraocular Movements: Extraocular movements intact. Cardiovascular: Rate and Rhythm: Normal rate and regular rhythm. Heart sounds: Normal heart sounds. Pulmonary: Breath sounds: Normal breath sounds. No wheezing or rales. Abdominal: General: There is no distension. Palpations: Abdomen is soft. Tenderness: There is no abdominal tenderness. Musculoskeletal: Right lower leg: No edema. Left lower leg: No edema. Neurological: Mental Status: She is alert and oriented to person, place, and time. Psychiatric: Mood and Affect: Mood normal. Behavior: Behavior normal. Relevant Lab Results No results found for: NA , K , CL , CO2 , BUN , CREATININE , GLUCOSE , CALCIUM , ANIONGAP , EGFR , BCR Relevant Imaging Results CT neck angio w and wo IV contrast Narrative: [facility] Department of Radiology [address] [place] [id number] Patient Name: KALEE RICHTER : 1965 Sex: F Age: Race: White^White Pt. Location: 30 Patient Status: O Ordered Date: 05/05/2019 4:45:00 PM Completed Date: 05/30/2019 08:15 AM Requesting Provider: TAYLA BECKER V Attending Provider: TAYLA BECKER V Report Copy To: MIKAEL MCCORMICK Signs & Symptoms: I65.23 Occlusion and stenosis of bilateral carotid arteries I10 History: [place] labs done 04/12/19 [employer] via [employer] auth#[id number] valid 05/07-08/06/19 cpt code 00497 clm 05/08 Comments: Exam: CTA NECK CTA NECK 05/30/2019 8:15 AM EST SIGNS AND SYMPTOMS: I65.23 Occlusion and stenosis of bilateral carotid arteries I10 TECHNOLOGIST COMMENTS: Pt with Occlusion and stenosis of bilateral carotid arteries. QUESTION FOR THE RADIOLOGIST: PROTOCOL: Axial CT angiography images were obtained with IV contrast. CONTRAST: Contrast: OMNIPAQUE 350 (LOCM), 100 milliliter, Intravenous TECHNIQUE: Multi-detector CT angiography axial slices of the neck were obtained during intravenous administration of IV contrast material. Sagittal, coronal, and 3-D reconstructions were performed and viewed on a separate workstation. Appropriate CT dose lowering techniques were utilized. COMPARISON: None. FINDINGS: No aortic aneurysm. Aorta 2.8 cm in maximum transverse dimension. Atherosclerotic changes origin of the left subclavian artery some stenosis. Common carotid arteries are norm (more content not included)... [facility] NURSNOTEon 12-25-2024 NURSNOTE RN educated pt on d/c instructions. This included: site care, limited physical activity, resume normal diet, future appointments, medications, and moderate sedation instructions. RN educated pt on when to notify physician and when to go to the hospital. RN educated pt on importance of not overusing stairs at this time and limited weight bearing of 5lbs. RN encouraged pt to voice any questions or concerns, and answered any questions or concerns if pt verbalized. Pt was wheeled off of unit with all of belongings. [facility] Basophils Auto (Bld) [#/Vol] Ordered By: Tayla Becker on 12-19-2024 Basophils (Bld) [#/Vol] 0.1 10 3/uL 0.0-0.1 [facility] Basophils/100 WBC Auto (Bld) Ordered By: Tayla Becker on 12-19-2024 Basophils/100 WBC (Bld) 1.1 % 0.2-2.0 [facility] Eosinophils/100 WBC Auto (Bl d)Ordered By: Tayla Becker on 12-19-2024 Eosinophils/100 WBC (Bld) 2.7 % 0.9-7.0 [facility] Erythrocyte distribution wid th Auto (RBC) [Ratio]Ordered By: Tayla Becker on 12-19-2024 Erythrocyte distribution width (RBC) [Ratio] 13.2 % 11.0-15.0 [facility] Glomerular filtration rate ( GFR) estimation in non- AmericanOrdered By: Tayla Becker on 12-19-2024 GFR/1.73 sq M.predicted among non-blacks MDRD (S/P/Bld) [Vol rate/Area] mL/min/{1.73_m2} >=60 mL/min/1.73m 2 [facility] Hematocrit Auto (Bld) [Volum e fraction]Ordered By: Tayla Becker on 12-19-2024 Hematocrit (Bld) [Volume fraction] 41.9 % 36.0-48.0 [facility] Hemoglobin [Mass/volume] in BloodOrdered By: Tayla Becker on 12-19-2024 Hemoglobin (Bld) [Mass/Vol] 14.2 g/dL 12.0-16.0 [facility] Laboratory - Chemistry and C hemistry - challengeOrdered By: Tayla Becker on 12-19-2024 Calcium [Mass/Vol] 9.2 mg/dL 8.5-10.1 [facility] Chloride [Moles/Vol] 103 mmol/L 98-107 [facility] CO2 [Moles/Vol] 26.1 mmol/L 21.0-32.0 [facility] Creatinine [Mass/Vol] 0.95 mg/dL 0.55-1.02 [facility] GFR/1.73 sq M.predicted MDRD (S/P/Bld) [Vol rate/Area] mL/min/{1.73_m2} >=60 mL/min/1.73m 2 [facility] Glucose [Mass/Vol] 82 mg/dL 74-106 [facility] Potassium [Moles/Vol] 4.0 mmol/L 3.5-5.1 [facility] Sodium [Moles/Vol] 138 mmol/L 136-145 [facility] Urea nitrogen [Mass/Vol] 16.0 mg/dL 7.0-18.0 [facility] Urea nitrogen/Creatinine [Mass ratio] 16.8 mg/mg [facility] Laboratory - Hematology and Cell countsOrdered By: Tayla Becker on 12-19-2024 Immature granulocytes/100 WBC (Bld) 0.2 % 0.0-0.5 [facility] Leukocytes [#/volume] correc terry for nucleated erythrocytes in Blood by Automated counOrdered By: Tayla Becker on 12-19-2024 WBC corrected for nucl RBC Auto (Bld) [#/Vol] 5.7 10 3/uL 4.0-11.0 [facility] Lymphocytes Auto (Bld) [#/Vo l]Ordered By: Tayla Becker on 12-19-2024 Lymphocytes (Bld) [#/Vol] 2.3 10 3/uL 1.2-3.8 [facility] Lymphocytes/100 WBC Auto (Bl d)Ordered By: Tayla Becker on 12-19-2024 Lymphocytes/100 WBC (Bld) 40.0 % 20.5-60.0 [facility] MCH Auto (RBC) [Entitic mass ]Ordered By: Tayla Becker on 12-19-2024 MCH (RBC) [Entitic mass] 29.7 pg 26.7-34.0 [facility] MCHC Auto (RBC) [Mass/Vol]Or dered By: Tayla Becker on 12-19-2024 MCHC (RBC) [Mass/Vol] 33.9 g/dL 29.9-35.2 [facility] MCV Auto (RBC) [Entitic vol] Ordered By: Tayla Becker on 12-19-2024 MCV (RBC) [Entitic vol] 87.7 fL 81.0-99.0 [facility] Monocytes Auto (Bld) [#/Vol] Ordered By: Tayla Becker on 12-19-2024 Monocytes (Bld) [#/Vol] 0.6 10 3/uL 0.3-0.8 [facility] Monocytes/100 WBC Auto (Bld) Ordered By: Tayla Becker on 12-19-2024 Monocytes/100 WBC (Bld) 10.3 % 1.7-12.0 [facility] Neutrophils Auto (Bld) [#/Vo l]Ordered By: Tayla Becker on 12-19-2024 Neutrophils (Bld) [#/Vol] 2.6 10 3/uL 1.4-6.5 [facility] Neutrophils/100 WBC Auto (Bl d)Ordered By: Tayla Becker on 12-19-2024 Neutrophils/100 WBC (Bld) 45.7 % 43.0-75.0 [facility] No Panel InformationOrdered By: Tayla Becker on 12-19-2024 Eosinophils # (Auto) 0.2 10 3/uL 0.0-0.7 [facility] Immature Granulocyte # (Auto) 0.01 10 3/uL 0.00-0.03 [facility] Orders Onlyon 12-19-2024 Orders Only [id number] Kalee Richter 1965 F Date Provider Department Center 12/19/2024 [id number], HISTORICAL CARD [facility] Family History Problem Relation Age of Onset Parkinsonism Mother Hypertension Father Lung cancer Father Coronary artery disease Brother Heart failure Brother Atrial fibrillation Brother Family Status - Relation Status Age at Mother Father Brother Normal [facility] Platelet mean volume Auto (B ld) [Entitic vol]Ordered By: Tayla Becker on 12-19-2024 Platelet mean volume (Bld) [Entitic vol] 10.5 fL 9.5-13.5 [facility] Platelets Auto (Bld) [#/Vol] Ordered By: Tayla Becker on 12-19-2024 Platelets (Bld) [#/Vol] 133 10 3/uL Low 150-450 [facility] RBC Auto (Bld) [#/Vol]Ordere d By: Tayla Becker on 12-19-2024 RBC (Bld) [#/Vol] 4.78 10 6/uL 4.20-5.40 [facility] Serum or plasma anion gap de terminationOrdered By: Tayla Becker on 12-19-2024 Anion gap [Moles/Vol] 12.9 mmol/L [facility] 36on 12-05-2024 36 Called patient to make sure she got my VM from yesterday about needing heart cath. She verbalized understanding. [facility] 36on 12-04-2024 36 Regarding stress test from 11/28/2024: Tayla Becker MD to Ma 12/04/24 3:15 AM The stress test showed ischemia. she needs cardiac cath. Please schedule for coronary angiogram. LM for patient and asked her to return my call. Cath and lab orders entered. [facility] Telephoneon 12-04-2024 Telephone [id number] Kalee Richter 1965 F Date Provider Department Center 12/04/2024 Shimon-CARLEE GODFREY CARD [facility] Family History Problem Relation Age of Onset Parkinsonism Mother Hypertension Father Lung cancer Father Coronary artery disease Brother Heart failure Brother Atrial fibrillation Brother Family Status - Relation Status Age at Mother Father Brother [facility] Orders Onlyon 12-01-2024 Orders Only [id number] Kalee Richter 1965 F Date Provider Department Center 12/01/2024 [id number], HISTORICAL CARD [facility] Family History Problem Relation Age of Onset Parkinsonism Mother Hypertension Father Lung cancer Father Coronary artery disease Brother Heart failure Brother Atrial fibrillation Brother Family Status - Relation Status Age at Mother Father Brother [facility] Orders Onlyon 11-26-2024 Orders Only [id number] Kalee Richter 1965 F Date Provider Department Center 11/26/2024 [id number], HISTORICAL CARD [facility] Family History Problem Relation Age of Onset Parkinsonism Mother Hypertension Father Lung cancer Father Coronary artery disease Brother Heart failure Brother Atrial fibrillation Brother Family Status - Relation Status Age at Mother Father Brother Normal [facility] Office Visiton 11-10-2024 Follow-up visit [id number] Kalee Richter 1965 F Date Provider Department Center 11/10/2024 TAYLA ENGLISH [facility] Family History Problem Relation Age of Onset Parkinsonism Mother Hypertension Father Lung cancer Father Coronary artery disease Brother Heart failure Brother Atrial fibrillation Brother Family Status - Relation Status Age at Mother Father Brother Level of Service:23454 DC OFFICE/OUTPATIENT ESTABLISHED MOD MDM 30 MIN Normal [facility] MG MAMM SCREEN 3D JAYLON CADon 04-14-2022 MG MAMM SCREEN 3D JAYLON CAD Patient: KALEE RICHTER. Exam Date: 04/14/2022 : 1965 Gender:F Ordering : DR MIKAEL MCCORMICK D.O. Admission #: [id number] Family : Order #: [id number] CLICK HERE TO VIEW EXAM RADIOLOGY REPORT [...] lung cancer at age 63. LOCATION: [facility] BREAST COMPOSITION: Scattered areas fibroglandular density. FINDINGS: [...] M.D. on 04/17/2022 at 10:47 Normal [facility] CBC AUTO DIFFon 04-08-2022 BASO # 0.1 103/ul Normal 0.0-0.1 [facility] Comment on above: Performed By: #### C BC #### [facility] [address] [address] [address] Malick Larkin Basophils/100 WBC (Bld) 0.9 % Normal 0.2-2.0 [facility] Comment on above: Performed By: #### C BC #### [facility] [address] [place] [address] Dr. Malick Larkin EO # 0.1 103/ul Normal 0.0-0.7 [facility] Comment on above: Performed By: #### C BC #### [facility] [address] [place] [address] Dr. Malick Larkin Eosinophils/100 WBC (Bld) 1.3 % Normal 0.9-7.0 [facility] Comment on above: Performed By: #### C BC #### [facility] [address] [place] [address] Dr. Malick Larkin Erythrocyte distribution width (RBC) [Ratio] 13.2 % Normal 11.0-15.0 [facility] Comment on above: Performed By: #### C BC #### [facility] [address] [place] [address] Dr. Malick Larkin Hematocrit (Bld) [Volume fraction] 44.7 % Normal 36.0-48.0 [facility] Comment on above: Performed By: #### C BC #### [facility] [address] [place] [address] Dr. Malick Larkin Hemoglobin (Bld) [Mass/Vol] 15.0 g/dL Normal 12.0-16.0 [facility] Comment on above: Performed By: #### C BC #### [facility] [address] [place] [address] Dr. Malick Larkin IG # 0.02 10e3/ul Normal 0.00-0.03 [facility] Comment on above: Performed By: #### C BC #### [facility] [address] [place] [address] Dr. Malick Larkin IG % 0.3 % Normal 0.0-0.5 [facility] Comment on above: Performed By: #### C BC #### [facility] [address] [place] [address] Dr. Malick Larkin LYMPH # 2.1 103/ul Normal 1.2-3.8 [facility] Comment on above: Performed By: #### C BC #### [facility] [address] [place] [address] Dr. Malick Larkin Lymphocytes/100 WBC (Bld) 31.2 % Normal 20.5-60.0 [facility] Comment on above: Performed By: #### C BC #### [facility] [address] [place] [address] Dr. Malick Larkin MANUAL DIFF REQ NO Normal [facility] Comment on above: Performed By: #### C BC #### [facility] [address] [place] [address] Dr. Malick Larkin MCH (RBC) [Entitic mass] 28.8 pg Normal 26.7-34.0 [facility] Comment on above: Performed By: #### C BC #### [facility] [address] [place] [address] Dr. Malick Larkin MCHC (RBC) [Mass/Vol] 33.6 g/dL Normal 29.9-35.2 [facility] Comment on above: Performed By: #### C BC #### [facility] [address] [place] [address] Dr. Malick Larkin MCV (RBC) [Entitic vol] 86.0 fL Normal 81.0-99.0 [facility] Comment on above: Performed By: #### C BC #### [facility] [address] [place] [address] Dr. Malick Larkin MONO # 0.6 103/ul Normal 0.3-0.8 [facility] Comment on above: Performed By: #### C BC #### [facility] [address] [place] [address] Dr. Malick Larkin Monocytes/100 WBC (Bld) 8.2 % Normal 1.7-12.0 [facility] Comment on above: Performed By: #### C BC #### [facility] [address] [place] [address] Dr. Malick Larkin NEUT # 4.0 103/ul Normal 1.4-6.5 [facility] Comment on above: Performed By: #### C BC #### [facility] [address] [place] [address] Dr. Malick Larkin Neutrophils/100 WBC (Bld) 58.1 % Normal 43.0-75.0 [facility] Comment on above: Performed By: #### C BC #### [facility] [address] [place] [address] Dr. Malick Larkin Platelet mean volume (Bld) [Entitic vol] 10.1 fL Normal 9.5-13.5 [facility] Comment on above: Performed By: #### C BC #### [facility] [address] [place] [address] Dr. Malick Larkin PLT 158 103/ul Normal 150-450 [facility] Comment on above: Performed By: #### C BC #### [facility] [address] [place] [address] Dr. Malick Larkin RBC 5.20 106/ul Normal 4.20-5.40 [facility] Comment on above: Performed By: #### C BC #### [facility] [address] [place] [address] Dr. Malick Larkin WBC 6.8 103/ul Normal 4.0-11.0 [facility] Comment on above: Performed By: #### C BC #### [facility] [address] [place] [address] Dr. Malick Larkin PROF 14(COMP METB)on 022 Albumin [Mass/Vol] 3.6 g/dL Normal 3.4-5.0 [facility] Comment on above: Performed By: #### C MP #### [facility] [address] [place] [address] Dr. Malick Larkin Albumin/Globulin [Mass ratio] 0.8 {ratio} Normal [facility] Comment on above: Performed By: #### C MP #### [facility] [address] [place] [address] Dr. Malick Larkin ALP [Catalytic activity/Vol] 89 U/L Normal 46-116 [facility] Comment on above: Performed By: #### C MP #### [facility] [address] [address] [address] Malick Larkin ALT [Catalytic activity/Vol] 20 U/L Normal 14-59 [facility] Comment on above: Performed By: #### C MP #### [facility] [address] [address] [address] Malick Larkin Anion gap [Moles/Vol] 9.5 mmol/L Normal [facility] Comment on above: Performed By: #### C MP #### [facility] [address] [address] [address] Malick Larkin AST [Catalytic activity/Vol] 16 U/L Normal 15-37 [facility] Comment on above: Performed By: #### C MP #### [facility] [address] [place] [address] Dr. Malick Larkin Bilirubin [Mass/Vol] 0.8 mg/dL Normal 0.2-1.0 [facility] Comment on above: Performed By: #### C MP #### [facility] [address] [address] [address] Malick Larkin Calcium [Mass/Vol] 9.0 mg/dL Normal 8.5-10.1 [facility] Comment on above: Performed By: #### C MP #### [facility] [address] [address] [address] Malick Larkin Chloride [Moles/Vol] 102 mmol/L Normal 98-107 [facility] Comment on above: Performed By: #### C MP #### [facility] [address] [address] [address] Malick Larkin CO2 [Moles/Vol] 28.3 mmol/L Normal 21.0-32.0 [facility] Comment on above: Performed By: #### C MP #### [facility] [address] [address] [address] Malick Larkin Creatinine [Mass/Vol] 0.77 mg/dL Normal 0.55-1.02 [facility] Comment on above: Performed By: #### C MP #### [facility] [address] [address] [address] Malick Larkin EGFR-AF ERITREAN >60 Normal >=60 [facility] Comment on above: Performed By: #### C MP #### [facility] [address] [address] [address] Malick Larkin EGFR-NON AF ERITREAN >60 Normal >=60 [facility] Comment on above: Performed By: #### C MP #### [facility] [address] [address] [address] Malick Larkin Globulin (S) [Mass/Vol] 4.3 g/dL Normal T [facility] Comment on above: Performed By: #### C MP #### [facility] [address] [address] [address] Malick Larkin Glucose [Mass/Vol] 93 mg/dL Normal 74-106 [facility] Comment on above: Performed By: #### C MP #### [facility] [address] [address] [address] Malick Larkin Potassium [Moles/Vol] 4.8 mmol/L Normal 3.5-5.1 [facility] Comment on above: Performed By: #### C MP #### [facility] [address] [address] [address] Malick Larkin Protein [Mass/Vol] 7.9 g/dL Normal 6.4-8.2 [facility] Comment on above: Performed By: #### C MP #### [facility] [address] [address] [address] Malick Larkin Sodium [Moles/Vol] 135 mmol/L Critically low 136-145 [facility] Comment on above: Performed By: #### C MP #### [facility] [address] [address] [address] Malick Larkin Urea nitrogen [Mass/Vol] 11.0 mg/dL Normal 7.0-18.0 [facility] Comment on above: Performed By: #### C MP #### [facility] [address] [address] [address] Malick Larkin Urea nitrogen/Creatinine [Mass ratio] 14.3 mg/mg Normal [facility] Comment on above: Performed By: #### C MP #### [facility] [address] [address] [address] Malick Larkin LIPID PROFILEon 11-19-2021 CHOL-HDL RATIO NORM SEE BELOW Normal [facility] Comment on above: Result Comment: 3.3 - 4.4 LOW RISK 4.4 - 7.1 AVERAGE RISK 7.1 - 11.0 MODERATE RISK >11.0 HIGH RISK Performed By: #### L IPID #### [facility] [address] [address] [address] Malick Larkin Cholesterol [Mass/Vol] 136 mg/dL Normal <=200 [facility] Comment on above: Performed By: #### L IPID #### [facility] [address] [address] [address] Malick Larkin Cholesterol in HDL [Mass/Vol] 36 mg/dL Critically low 40-60 [facility] Comment on above: Performed By: #### L IPID #### [facility] [address] [address] [address] Malick Larkin Cholesterol in LDL [Mass/Vol] 75.0 mg/dL Normal [facility] Comment on above: Performed By: #### L IPID #### [facility] [address] [address] [address] Malick Larkin Cholesterol.total/Choles terol in HDL [Mass ratio] 3.8 {ratio} Normal [facility] Comment on above: Performed By: #### L IPID #### [facility] [address] [address] [address] Malick Larkin HDL NORMAL > or = 60 mg/dl - LOW CARDIOVASCULAR RISK <40 mg/dl - HIGH CARDIOVASCULAR RISK Normal [facility] Comment on above: Performed By: #### L IPID #### [facility] [address] [address] [address] Malick Larkin LDL CALC NORMAL SEE BELOW Normal [facility] Comment on above: Result Comment: <100 mg/dl OPTIMAL 100 - 129 mg/dl NEAR OR ABOVE OPTIMAL 130 - 159 mg/dl BORDERLINE HIGH 160 - 189 mg/dl HIGH >190 mg/dl VERY HIGH Performed By: #### L IPID #### [facility] [address] [place] [address] Dr. Malick Larkin Triglyceride [Mass/Vol] 125 mg/dL Normal <=150 T [facility] Comment on above: Performed By: #### L IPID #### [facility] [address] [address] [address] Malick Larkin VLDL CALC 25.0 mg/dL Normal [facility] Comment on above: Performed By: #### L IPID #### [facility] [address] [place] [address] Dr. Malick Larkin Vital Signs Date Time Vital Sign Value Performing Clinician Facility 02-20-2025 08:35-0400 Body height 165.1 cm Mikael Ball DO Work Phone: [facility] 02-20-2025 08:35-0400 Body mass index (BMI) [Ratio] 29.5 kg/m2 Mikael Ball DO Work Phone: [facility] 02-20-2025 08:35-0400 Body weight 80.34 kg Mikael Ball DO Work Phone: [facility] 02-20-2025 08:35-0400 Diastolic blood pressure 67 mm[Hg] Mikael Ball DO Work Phone: [facility] 02-20-2025 08:35-0400 Heart rate 66 /min Mikael Ball DO Work Phone: [facility] 02-20-2025 08:35-0400 Respiratory rate 12 /min Mikael Ball DO Work Phone: [facility] 02-20-2025 08:35-0400 Systolic blood pressure 105 mm[Hg] Mikael Ball DO Work Phone: [facility] 08-15-2024 08:33-0400 Body height 165.1 cm [facility] 08-15-2024 08:33-0400 Body mass index (BMI) [Ratio] 29.2 kg/m2 [facility] 08-15-2024 08:33-0400 Body weight 79.88 kg [facility] 08-15-2024 08:33-0400 Diastolic blood pressure 80 mm[Hg] [facility] 08-15-2024 08:33-0400 Heart rate 64 /min [facility] 08-15-2024 08:33-0400 Respiratory rate 12 /min [facility] 08-15-2024 08:33-0400 Systolic blood pressure 124 mm[Hg] [facility] 02-12-2024 22:13-0400 Body height 165.1 cm [facility] 02-12-2024 22:13-0400 Body mass index (BMI) [Ratio] 27.8 kg/m2 [facility] 02-12-2024 22:13-0400 Body weight 75.74 kg [facility] 02-12-2024 22:13-0400 Diastolic blood pressure 74 mm[Hg] [facility] 02-12-2024 22:13-0400 Heart rate 59 /min [facility] 02-12-2024 22:13-0400 Systolic blood pressure 111 mm[Hg] [facility] 08-10-2023 08:45-0400 Body height 165.1 cm [facility] 08-10-2023 08:45-0400 Body mass index (BMI) [Ratio] 28 kg/m2 [facility] 08-10-2023 08:45-0400 Body weight 76.37 kg [facility] 08-10-2023 08:45-0400 Diastolic blood pressure 83 mm[Hg] [facility] 08-10-2023 08:45-0400 Heart rate 62 /min [facility] 08-10-2023 08:45-0400 Respiratory rate 12 /min [facility] 08-10-2023 08:45-0400 Systolic blood pressure 127 mm[Hg] [facility] 02-08-2023 08:30-0400 Body height 165.1 cm Mikael Ball Other [facility] 02-08-2023 08:30-0400 Body mass index (BMI) [Ratio] 27.59 kg/m2 Mikael Ball Other [facility] 02-08-2023 08:30-0400 Body weight 75.21 kg Mikael Ball Other [facility] 02-08-2023 08:30-0400 Diastolic blood pressure 77 mm[Hg] Mikael Ball Other [facility] 02-08-2023 08:30-0400 Respiratory rate 12 /min Mikael Ball Other [facility] 02-08-2023 08:30-0400 Systolic blood pressure 124 mm[Hg] Mikael Ball Other [facility] 08-08-2022 16:30-0400 Body height 165.1 cm Mikael Ball Other [facility] 08-08-2022 16:30-0400 Body mass index (BMI) [Ratio] 28.12 kg/m2 Mikael Ball Other [facility] 08-08-2022 16:30-0400 Body weight 76.66 kg Mikael Ball Other [facility] 08-08-2022 16:30-0400 Diastolic blood pressure 74 mm[Hg] Mikael Ball Other [facility] 08-08-2022 16:30-0400 Respiratory rate 12 /min Mikael Ball Other [facility] 08-08-2022 16:30-0400 Systolic blood pressure 112 mm[Hg] Mikael Ball Other [facility] [email or web address] Other Encounters Encounter Date Encounter Type Care Provider Facility Start: 02-20-2025 End: 02-20-2025 ambulatory Mikale Mccormick DO Work Phone: [facility] Work Phone: Start: 02-20-2025 End: 02-20-2025 Patient encounter procedure Mikael Mccormick DO -[facility] Work Phone: Start: 02-20-2025 End: 02-20-2025 Patient encounter status Mikael Mccormick DO [facility] Start: 12-25-2024 ambulatory [facility] Start: 12-25-2024 End: 12-25-2024 ambulatory [facility] Start: 12-19-2024 Non-patient / Non-visit Tayla mendez MD -[facility] [facility] Work Phone: Start: 11-10-2024 End: 11-10-2024 ambulatory [facility] Start: 08-15-2024 End: 08-15-2024 ambulatory [facility] Work Phone: Start: 08-15-2024 End: 08-15-2024 Patient encounter procedure [facility] Work Phone: Start: 02-15-2024 End: 02-15-2024 ambulatory [facility] Work Phone: Start: 02-15-2024 End: 02-15-2024 Encounter for general adult medical examination without abnormal findings [facility] Start: 02-15-2024 End: 02-15-2024 Patient encounter procedure [facility] Work Phone: Start: 02-12-2024 Patient encounter status [facility] Start: 08-10-2023 End: 08-10-2023 ambulatory [facility] Work Phone: Start: 08-10-2023 End: 08-10-2023 Patient encounter procedure [facility] Work Phone: Start: 02-08-2023 End: 02-08-2023 ambulatory Mikael Mccormick Other [facility] Start: 02-08-2023 Encounter for genera l adult medical examination without abnormal findings Mikael Mccormick [facility] Start: 02-08-2023 Periodic preventive med est patient 40-64yrs Mikael Mccormick [facility] Start: 08-08-2022 End: 08-08-2022 ambulatory Mikael Mccormick Other [facility] Other Start: 08-08-2022 Office outpatient vi sit 25 minutes Mikael Mccormick [facility] Start: 04-14-2022 End: 04-15-[address] MIKAEL MCCORMICK Facility:[facility] Start: 04-12-2022 Encounter for genera l adult medical examination without abnormal findings DR MIKAEL MCCORMICK [facility] Start: 04-08-2022 End: 04-09-[address] MIKAEL MCCORMICK Facility:[facility] Start: 04-08-2022 End: 04-09-2022 Encounter for general adult medical examination without abnormal findings DR MIKAEL MCCORMICK Facility:[facility] Start: 11-19-2021 End: 11-20-[address] TAYLA BECKER Facility:[facility] Start: 06-03-[address] TAYLA BECKER Fac ility:[facility] Start: 03-14-2021 End: 03-15-2021 ambulatory MIKAEL MCCORMICK Facility:[facility] Plan of Treatment Date Care Activity Detail Author Comprehensive metabo lic 2000 panel - Serum or Plasma [facility] enter MG Breast - bilateral Screening [facility] Payers Date Payer Category Payer Private Health Insurance [id number] 1965 Unknown [id number] [id number] 1965 Unknown [id number] [id number] [id number] 1965 Unknown [id number] [id number] [id number] 1965 Unknown [id number] [id number] [id number] 1965 Unknown [id number] [id number] [id number] 1960 Self-pay 1960 Unknown [id number] Unknown [id number] Social History Date Type Detail Facility Sex Assigned At [facility] [email or web address] Other Start: 08-09-2023 Tobacco smoking status NHIS Smoker (finding) [facility] Start: 1965 Sex Assigned At Female [facility] Start: 08-15-2024 Sex Female (finding) [facility] Start: 08-09-2023 Tobacco smoking status [facility] Smokes tobacco daily (finding) [facility] NEGATED: Highlighted row [facility] Clinical Notes 08-08-2022 to 12-25-2024 Note Date & Type Note Facility 12-25-2024 Note Patient: Kalee gasca Pre-sedation Evaluation: Moderate sedation History of Present Illness: Patient is a 59 year old female with a past medical history of HTN,smoker,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 Recent sedation/surgery (24 hours) No Review of Systems: Please check all that apply: Cardiac Disease test completed prior to procedure on any menstruating female: none NPO guidelines met: Yes Physical Exam Airway Mallampati: III Cardiovascular Rhythm: regular Rate: normal (-) murmur, peripheral edema Dental Pulmonary (-) rhonchi, decreased breath sounds, wheezes Plan ASA 3 Moderate Consent for blood products obtained. Risks, benefits, and alternatives to procedure discussed with patient in detail who expressed understanding and agreed to proceed. Chelsey Peter PGY-4 [employer] [facility] [1] Past Medical History: Diagnosis Date Carotid bruit Coronary artery disease Hyperlipidemia Hypertension LBBB (left bundle branch block) PVD (peripheral vascular disease) Subclavian vein stenosis, right [2] No Known Allergies [3] Medications Prior to Admission Medication Sig Dispense Refill Last Dose/Taking amLODIPine (Norvasc) 2.5 mg tablet Take 1 tablet (2.5 mg) by mouth in the morning. 90 tablet 3 12/24/2024 clopidogrel (Plavix) 75 mg tablet Take 1 tablet (75 mg) by mouth once daily as directed. 90 tablet 3 12/25/2024 Morning ezetimibe (Zetia) 10 mg tablet TAKE 1 TABLET BY MOUTH AT BEDTIME 90 tablet 0 12/24/2024 isosorbide mononitrate ER (Imdur) 120 mg 24 hr tablet TAKE 1 TABLET BY MOUTH IN THE MORNING. GENERIC EQUIVALENT FOR IMDUR 90 tablet 3 12/24/2024 metoprolol succinate XL (Toprol-XL) 50 mg 24 hr tablet TAKE 1 TABLET BY MOUTH IN THE MORNING 90 tablet 0 12/24/2024 ranolazine (Ranexa) 500 mg 12 hr tablet Take 1 tablet (500 mg) by mouth in the morning and at bedtime. 180 tablet 3 12/24/2024 rosuvastatin (Crestor) 40 mg tablet Take 1 tablet (40 mg) by mouth at bedtime. 90 tablet 3 12/24/2024 [4] No current facility-administered medications for this encounter. [facility] 12-25-2024 Note No associated orders from this encounter found during lookback period of 72 hours. 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 [facility] 02-08-2023 Evaluation note Encounter Date Diagnosis Assessment [...] achieve/maintain a normal BMI. Jan, Atherosclerosis of [place] arteries of extremities with intermittent claudication, bilateral [...] patient on monthly SBE and yearly mammograms. [facility] Other 03-21-2023 Evaluation note* Encounter Date Diagnosis Assessment Notes Treatment Notes Treatment Clinical Notes Jul, ASHD (arteriosclerotic heart disease) (ICD-10 - I25.10) This patient is stable without activity related CP, dyspnea or lightheadedness. They are instructed to continue exercise and AHA diet plan. Jul, HTN (hypertension) (ICD-10 - I10) This patient is instructed to consume a healthy, low-fat, low-salt diet. They are also encouraged to continue exercise to achieve/maintain a normal BMI. Jul, Atherosclerosis of [place] arteries of extremities with intermittent claudication, bilateral [...] in temperature or color. No claudication symptoms [facility] Other Evaluation note* Diagnosis Onset Date Resolution Status ASHD (arteriosclerotic heart disease) acute Chronic bronchitis acute Elevated cholesterol acute Hypertension acute Nicotine dependence acute Overweight acute Rotator cuff strain acute [facility] Work Phone: Evaluation note* Diagnosis Onset Date Resolution Status ASHD (arteriosclerotic heart disease) acute Chronic bronchitis acute Elevated cholesterol acute Hypertension acute Nicotine dependence acute Overweight acute Rotator cuff strain acute Wellness examination acute [facility] Work Phone: Evaluation note* Diagnosis Onset Date Resolution Status Admit Date ASHD (arteriosclerotic heart disease) acute August 15, 2024 8:21am Chronic bronchitis acute August 15, 2024 8:21am Elevated cholesterol acute Terrell 2024 8:21am Hypertension acute August 15, 2024 8:21am Nicotine dependence acute August 15, 2024 8:21am Overweight acute August 15 8:21am [facility] Work Phone: Evaluation note* Diagnosis Onset Date Resolution Status Admit Date ASHD (arteriosclerotic heart disease) acute February 20 8:29am Chronic bronchitis acute Octobe r 2024 8:29am Elevated cholesterol acute Octo 2024 8:29am Hypertension acute February 20, 2025 8:29am Nicotine dependence acute Octob er 2025 8:29am Overweight acute February 20, 2 025 8:29am Screening mammogram for breast cancer acute February 20 8:29am Wellness examination acute Octo 2024 8:29am Screening for colon cancer noneactiv e February 20, 2025 8:29am [facility] Work Phone: History general Narrative - Reported* Type Description Date Medical History Atherosclerosis of n ative arteries of extremities with intermittent claudication, bilateral legs Medical History Subclavian arterial stenosis Medical History Cigarette nicotine dependence, u ncomplicated Medical History Hyperlipidemia type II Medical History Carotid stenosis, right Medical History ASHD (arteriosclerotic heart dis ease) Medical History HTN (hypertension) Surgical History X2 Surgical History FRITZ / BSO Surgical History ORIF LEFT WRIST Surgical History LHC Surgical History RCA Surgical History PERIPHERAL ANGIOGRAPHY W/ AORTA Surgical History B/L VICTORIANO STENTS Surgical History ESWL Hospitalization History SEE SURGICAL HX [facility] Reason for referral (narrative)No reason for referral [facility]: Summary Purpose Family History Relationship Condition Age [...] Visit Admit Date ASHD (arteriosclerotic heart disease) [facility] 2024 8:21am Chronic bronchitis August 15, 2024 8:2 1am Elevated cholesterol August 15, 2024 8: 21am Hypertension August 15, 2024 8:2 1am Nicotine dependence August 15, 2024 8:2 1am Overweight August 15, 2024 8:2 1am Chief Complaint Admit Date wellness February 20, 2025 8: 29am Reason for Visit Admit Date ASHD (arteriosclerotic heart disease) O[facility] 2024 8:29am Chronic bronchitis February 20, 2025 8: 29am Elevated cholesterol February 20, 2025 8 :29am Hypertension February 20, 2025 8: 29am Nicotine dependence February 20, 2025 8: 29am Overweight February 20, 2025 8: 29am Screening mammogram for breast cancer Oc 2024 8:29am Wellness examination February 20, 2025 8 :29am Screening for colon cancer February 20, 2025 8:29am Additional Source Comments INFORMATION SOURCE (unrecogn ized section and content) DATE CREATED AUTHOR 03/19/2021 [facility] DATE CREATED AUTHOR AUTHOR'S ORGANIZ ATION 04/20/2022 [facility] DATE CREATED AUTHOR AUTHOR'S ORGANIZ ATION 12/29/2024 [facility] REASON FOR VISIT (unrecogniz ed section and content) 6 MONTH FOLLOW UPWellness ex am Care Teams (unrecognized sec tion and content) Team Status: Active Member Role Status Yadiel Mccormick DO Primary Care Provider Active Team Status: Active Member Role Status Yadiel Mccormick DO Primary Care Provider Active Start: December 19, 2024 Tayla Becker MD Attending Provider Active Start: December 19, 2024 Team Status: Inactive Member Role Status Yadiel Mccormick DO Primary Care Provider Active Start: February 20, 2025 End: February 20, 2025 Mikael Mccormick DO Attending Provider Active Sta rt: February 20, 2025 End: February 20, 2025 Team Status: Active Member Role Status Yadiel Mccormick DO Primary Care Provider Active Team Status: Inactive Member Role Status Yadiel Mccormick DO Primary Care Provide r, Attending Provider Active Start: August 10, 2023 End: August 10, 2023 Team Status: Inactive Member Role Status Yadiel Mccormick DO Primary Care Provide r, Attending Provider Active Start: February 15, 2024 End: February 15, 2024 Team Status: Inactive Member Role Status Yadiel Mccormick DO Primary Care Provide r, Attending Provider Active Start: August 15, 2024 End: August 15, 2024 Team Status: Active Member Role Status Yadiel Mccormick DO Primary Care Provider Active Start: December 19, 2024 Tayla Becker MD Attending Provider Active Start: December 19, 2024 Team Status: Inactive Member Role Status Yadiel Mccormick DO Primary Care Provider Active Start: February 20, 2025 End: February 20, 2025 Mikael Mccormick DO Attending Provider Active Sta rt: February 20, 2025 End: February 20, 2025 Goals (unrecognized section and content) Goals may [...] BE BASED ON THE PRIMARY CLINICAL RECORDS. [employer] [facility]. provides no warranty or guarantee of the accuracy or completeness of information in this document.
[2025-02-23 10:26] LABS: Alanine Aminotransferase 25 U/L (14-59); Albumin Globulin Ratio 0.8; Albumin Level 3.5 g/dL (3.4-5.0); Alkaline Phosphatase 76 U/L (46-116); Anion Gap 12.7; Aspartate Amino Transferase 20 U/L (15-37); Blood Urea Nitrogen 21.0 mg/dL (7.0-18.0); Calcium 9.0 mg/dL (8.5-10.1); Carbon Dioxide 25.5 mmol/L (21.0-32.0); Chloride 107 mmol/L (98-107); Cholesterol 184 mg/dL (<=200); Estimated GFR (African America >60 (>=60 mL/min/1.73m^2); Estimated GFR (Non-African Ame >60 (>=60 mL/min/1.73m^2); Globulin 4.3 g/dL; Glucose 90 mg/dL (74-106); HDL Cholesterol 46 mg/dL (40-60); Potassium 4.2 mmol/L (3.5-5.1); Sodium 141 mmol/L (136-145); Total Protein 7.8 g/dL (6.4-8.2); Triglycerides 101 mg/dL (<=150); VLDL CHOLESTEROL 20.2 mg/dL
== END 2025-02-23 08:34 | disposition home or self-care (01) ==
LOC: LAB 08:34
PROVIDERS: PCP Internal Medicine; Visit Provider Internal Medicine
DX: Z00.00 Encounter for general adult medical examination without abnormal findings (principal)
CPT/HCPCS: 36415; 80053; 80061

== ENCOUNTER 2025-03-06 08:59 | Outpatient (OUT) | payer OTHER, SELFPAY ==
--- OUTSIDE RECORDS SUMMARY | 2025-02-23 09:00 | XMS_ITS | Encounter Summary ---
Author Organization [facility] Address [address] [place] [address] Care Team Providers Care Technical Sales Representative Name Role Phone Mikael Marshall Primary Care Provider [phone] Reason for Referral * Consultation (Routine) - Pending Review Specialty Diagnoses / Procedures Referred By Gustavo rdz Referred To Contact Diagnoses Status post insertion of drug eluting coronary artery stent Procedures AL OFFICE/OUTPATIENT [facility] 60 MINUTES Levi Becker MD [address] [place] [address] Phone: tel: fax: [facility] [address] [place] [phone] Phone: tel: fax: Referral ID Status Reason Start Date Expiration Date Visits Requested Visits Authorized [id number] Pending Review Specialty Services Required 02/23/2025 02/23/2026 1 1 Encounter Details Date Type Department Care Team (Late st Contact Info) Description 02/23/2025 9:00 AM EDT Follow-Up [facility] Heart at [facility] [address] [place] [address] Levi Becker MD [address] [place] [address] Coronary artery disease involving telida coronary artery of telida heart without angina pectoris (Primary Dx); Status post insertion of drug eluting coronary artery stent; Bilateral carotid artery stenosis; Subclavian artery stenosis, right; PAD (peripheral artery disease); Essential hypertension; Mixed hyperlipidemia Social History Tobacco Use Types Packs/Day Years [...] Heterosexual or Straight 11/2024 8:40 AM EDT documented as of this encounter Last Filed Vital Signs Vital Sign Reading Time Taken Comments Blood Pressure 110/80 02/23/2025 9:22 AM EDT Pulse 62 02/23/2025 8:53 AM EDT Temperature - - Respiratory Rate - - Oxygen Saturation 97% 02/23/2025 8:53 AM EDT Inhaled Oxygen Concentration - - Weight 79.8 kg (176 lb) 02/23/2025 8:53 AM EDT Height 162.6 cm (5' 4 ) 02/23/2025 8:53 AM EDT Body Mass Index 30.21 02/23/2025 8:53 AM EDT documented in this encounter Functional Status * BP Answer Date of Assessment Author 110/80 02/23/2025 9:22 AM EDT Jose Angel Delacruz MA * Pulse Answer Date of Assessment Author 62 02/23/2025 8:53 AM EDT Janette Martinez MA * Patient Position Answer Date of Assessment Author Sitting 02/23/2025 9:22 AM EDT Jose Angel Delacruz MA * BP Answer Date of Assessment Author 110/80 02/23/2025 9:22 AM EDT Jose Angel Delacruz MA * Pulse Answer Date of Assessment Author 62 02/23/2025 8:53 AM EDT Janette Martinez MA * SpO2 Answer Date of Assessment Author 97 02/23/2025 8:53 AM EDT Janette Martinez MA * BP Location Answer Date of Assessment Author Right arm 02/23/2025 9:22 AM EDT Jose Angel Delacruz MA * Patient Position Answer Date of Assessment Author Sitting 02/23/2025 9:22 AM EDT Jose Angel Delacruz MA documented as of this encounter Progress Notes * Levi Becker MD - 02/23/2025 9:00 AM EDT Images from the original note were not included. [place] [facility] Subjective Kalee Iqbal is a 59 y.o. year old female patient being seen for S/P PTCA stent. Patient statesshe feels good. Patient denies chest pain, SOB, VERDIN, leg swelling, bleeding/bruising. Patient Active Problem List Diagnosis Cardiovascular stress test abnormal Carotid bruit Chest pain Coronary arteriosclerosis Disorder of lipid metabolism Dyspnea Essential hypertension Hyperlipidemia Left bundle branch block Tobacco dependence syndrome Carotid artery stenosis Subclavian artery stenosis, right Abnormal stress test Family History Problem Relation Name Age of [...] has history of: HTN smoker CAD RCA MARINE FIREMAN by prior cardiac catheterization PAD Bilateral VICTORIANO [...] on cross-sectional diameter. Calcification does decrease the accuracyof calculation of percent stenosis. Atherosclerotic calcification in [...] it still gets tired with use, she restsit and then she can use it again. She has dyspnea on exertion. She continues to smoke. Update 06/14/2020: She is seen in follow-up. She reports that since last visit of February 2020 she has been about the same. She still gets angina symptoms on exertion, relieved by resting. No symptoms at rest. She has dyspnea on exertion. She continues to smoke Update 09/10/2020: She is seen in follow-up. She reports that she has been doing reasonably well. She continues to have angina class II. She haslearned to live with it. She does have some physical limitations. She does not have symptoms of stroke. She does not have palpitations. She has some right arm weakness with exertion but is not limiting her. Blood testing 02/16/2020: Normal CBC, normal BMP, LDL 68, triglycerides 53. HDL 46, cholesterol 125. Update 03/07/2021: She is seen in follow-up. She reports that she has been about the same. She continues to have angina with moderate exertion. This is described as chest discomfort and shortness of breath. She has no lower extremity claudication. No stroke symptoms. She has mild weakness in right arm on excessive exertion but she does not have limitations at usualactivities. She reports that she has been taking medications except that the Ranexa she was taking only once a day and forgets the second dose during the day. She also has not been able to obtain Repatha due to cost. She continues to smoke. Update 04/18/2021: She is seen in follow-up. At last visit I checked a stress test to quantify the amount of ischemia given her continued anginasymptoms. This did not reveal any evidence of significant ischemia. In addition I checked a carotidultrasound that showed evidence of mild right and moderate left internal carotid artery stenosis with antegrade flow in both vertebral arteries. She reports that she has been doing reasonably well. She has occasional symptoms of chest pain on exertion but she has learned how to deal with the symptoms. She reports that the right arm is not bothering her much nowadays. Stress test 03/17/2021: No acute or reversible ischemia, tiny area of remote infarction versus breast attenuation artifact involving the mid anterior septal wall. Breast attenuation artifact is suspected. Normal wall motion and ejection fraction, EF 61%. Carotid ultrasound 03/07/2021: Right internal carotid arteries with less than 50% stenosis, left internal carotid artery with 50-69% stenosis, both vertebral arteries with antegrade flow. Update 11/22/2021: She is seen in follow-up. She reports that she has been doing really well. She has no significant symptoms except some chest discomfort on excessive activities. No significant shortness of breath. No palpitations. No leg edema. No syncope. She denies arm symptoms. No TIA or stroke events. Her main complaint is that she is paying a lot of co-pay for Repatha and is asking about alternative. Lipid profile 11/19/2021: Cholesterol 136, triglycerides 125, HDL 36, LDL 75. Update 08/06/2023: She is seen in follow-up. She has been doing well with no angina. Her shortness of breath is stable and is chronic. No palpitations. No leg edema. No history of syncope. She denies symptoms in the right arm. No cerebrovascular events. She has not had any recent blood testing. She is supposed to get from her PCP. [facility] showed mild bilateral carotid artery stenosis. Visit of 11/10/2024: She is seen in follow-up. Today she reports that she has been having symptoms of chest pain with moderate exertion. CCA classII. She has no leg edema. No shortness of breath. No palpitations. She continues to take medications as prescribed however she has not been taking Ranexa. She did not have the blood work that I ordered recently. She has no claudication. Her blood pressure has been borderline low and she sometimes does not take the amlodipine. Visit of 02/23/2025: She is seen in follow-up. After last visit and due to symptoms of chest pain with exertion I checked a stress test that showed inferior ischemia. I proceeded with cardiac catheterization. This showed MARINE FIREMAN of the RCA and subtotal stenosis at the ostium of the circumflex with mild to moderate disease in the LAD. I proceeded with drug-eluting stenting of the ostium of the circumflex stenosis. 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 Today she reports that she has been doing well. she in general does not have any significant complaints but at the same time she reports that she has not been exerting herself much and does not do much during her day. Specifically she has not felt any significant symptoms of chest pain however she paces herself and does not exert herself much. There has been no significant dizziness or lightheadedness and no symptoms of right arm weakness like she used to have in the past when she used to be working. Review of Systems All other systems reviewed and are negative. Objective Visit Vitals BP 110/80 (BP Location: Right arm, Patient Position: Sitting) Pulse 62 Ht 1.626 m (5' 4 ) Wt 79.8 kg (176 lb) SpO2 97% BMI 30.21 kg/m?? Smoking Status Every Day BSA 1.9 m?? Physical Exam Constitutional: Appearance: She is well-developed. She is not ill-appearing. HENT: Head: Normocephalic and atraumatic. Nose: Nose normal. Eyes: General: No scleral icterus. Pupils: Pupils are equal, round, and reactive to light. Neck: Thyroid: No thyromegaly. Vascular: No JVD. Cardiovascular: Rate and Rhythm: Normal rate and regular rhythm. Pulses: Radial pulses are 1+ on the right side and 2+ on the left side. Posterior tibial pulses are 2+ on the right side and 2+ on the left side. Heart sounds: Normal heart sounds. No murmur heard. No friction rub. No gallop. Pulmonary: Effort: Pulmonary effort is normal. No respiratory distress. Breath sounds: Normal breath sounds. No wheezing or rales. Chest: Chest wall: No tenderness. Abdominal: General: Bowel sounds are normal. There is no distension. Palpations: Abdomen is soft. Tenderness: There is no abdominal tenderness. Musculoskeletal: General: No swelling. Cervical back: Neck supple. Skin: General: Skin is warm and dry. Neurological: General: No focal deficit present. Mental Status: She is alert and oriented to person, place, and time. Psychiatric: Mood and Affect: Mood normal. Behavior: Behavior is cooperative. Judgment: Judgment normal. Allergies No Known Allergies Medications Current Outpatient Medications: amLODIPine (Norvasc) 2.5 mg tablet, Take 1 tablet (2.5 mg) by mouth in the morning., Disp: 90 tablet, Rfl: 3 clopidogrel (Plavix) 75 mg tablet, Take 1 tablet (75 mg) by mouth once daily as directed., Disp: 90tablet, Rfl: 3 ezetimibe (Zetia) 10 mg tablet, TAKE 1 TABLET BY MOUTH AT BEDTIME, Disp: 90 tablet, Rfl: 3 isosorbide mononitrate ER (Imdur) 120 mg 24 hr tablet, TAKE 1 TABLET BY MOUTH IN THE MORNING. GENERIC EQUIVALENT FOR IMDUR, Disp: 90 tablet, Rfl: 3 metoprolol succinate XL (Toprol-XL) 50 mg 24 hr tablet, TAKE 1 TABLET BY MOUTH IN THE MORNING, Disp: 90 tablet, Rfl: 3 ranolazine (Ranexa) 500 mg 12 hr tablet, Take 1 tablet (500 mg) by mouth in the morning and at bedtime., Disp: 180 tablet, Rfl: 3 rosuvastatin (Crestor) 40 mg tablet, Take 1 tablet (40 mg) by mouth at bedtime., Disp: 90 tablet, Rfl: 3 Recent Labs Blood testing 12/19/2024: Potassium 4.0, BUN 16, creatinine 0.95, eGFR more than 60, hemoglobin 14.2,platelets 133. Imaging and other tests Carotid ultrasound 07/25/2023: 0 to 49% flow stenosis bilateral carotid arteries. Carotid ultrasound 11/22/2024: 50 to 69% stenosis of left internal carotid artery. Right vertebral artery retrograde flow. Stress test 11/28/2024: Abnormal myocardial perfusion stress test showing evidence of mild inferior ischemia. Normal left ventricular systolic function, ejection fraction 61%. TID was not calculated but visually no obvious transient ischemic dilatation. Nondiagnostic Lexiscan EKG stress test due to baseline left bundle branch block. ECG 12/25/2024: Sinus bradycardia Left bundle branch block Abnormal ECG Cardiac catheterization 12/25/2024: Impression/Findings: 99% ostial circumflex stenosis reduced to 0% by a Synergy XD drug-eluting stent 50% stenosis in the mid LAD Chronic total occlusion of the right coronary artery with filling of the distal vessel via [id number] collateral circulation Mildly elevated LVEDP No evidence [...] follow-up for revascularization of her innominate artery. Assessment/Plan Diagnoses and all orders for this visit: Coronary artery disease involving telida coronary artery of telida heart without angina pectoris Status post insertion of drug eluting coronary artery stent - Ambulatory referral to Cardiac Rehab; Future Bilateral carotid artery stenosis Subclavian artery stenosis, right PAD (peripheral artery disease) Essential hypertension Mixed hyperlipidemia 1. Hypertension: Blood pressure seems to be controlled based on peripheral readings but central aortic pressure was elevated during the cardiac catheterization. we checked blood pressure today in both arms and there is about 10 mmHg difference between the left and the right with the right being lower. I also suspect that she might have a significant left-arm circulation stenosis. For the time being I am continuing same current medications. This is pending further plan for her innominate artery stenosis. 2. CAD, Status post stenting of the ostium of the circumflex on 12/25/2024: Continue current antianginal medications including metoprolol succinate, amlodipine and isosorbide mononitrate, and Ranexa 500 mg twice daily. I reviewed with her the images of the cardiac catheterization and stenting of the c ircumflex. She has been maintained on monotherapy with clopidogrel only and has done well with that. In the past aspirin caused her to have excessive bruising. I will refer her to cardiac rehab 3. Hyperlipidemia: Currently on rosuvastatin 40 mg daily and ezetimibe 10 mg daily. Today she underwent blood testing including lipid panel. Once I obtain the result I will make further management recommendations. Her target level should be less than 55. 4. Carotid artery stenosis: Moderate carotid artery stenosis by carotid ultrasound November 2024. Continue medical therapy with antiplatelet, statin therapy and ezetimibe. Control LDL to a target level less than 55. 5. 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 She also has retrograde flow in the right vertebral artery. I explained the symptoms associated with. It appears that she has not been experiencing significant symptoms because she has been sedentary. We will continue to monitor symptoms while she is in cardiac rehab and decide on proceeding with intervention. I explained the potential for intervention to the innominate artery for her along with risks and benefits, I explained to her that we will try to perform cerebral protection during the procedure to reduce the risk of stroke. I will see her in follow-up in 2 months to follow-up on her progress and decide on proceeding with intervention to the right innominate artery stenosis. At that time we can investigate left subclavian artery potential stenosis by additional imaging. One of the benefits for intervention for her would be ability to obtain accurate blood pressure readings to control her central pressure. Follow up in about 2 months (around 04/25/2025). Levi Becker MD documented in this encounter Plan of Treatment Upcoming Encounters Date Type Department Care Team (Late st Contact Info) Description 05/01/2025 9:00 AM EST Office Visit [address] [id number] Levi Becker MD [address] [facility] [address] [facility] [place] [address] Scheduled Referrals Name Type Priority Associated Diagnoses Order Schedule Ambulatory referral to Cardiac Rehab Outpatient Referral Routine Status post insertion of drug eluting coronary artery stent Expected: 02/23/2025 (Approximate), Expires: 08/24/2025 documented as of this encounter Visit Diagnoses Diagnosis Coronary artery disease involving telida coronary artery of telida heart without angina pectoris- Primary Status post insertion of drug eluting coronary artery stent Bilateral carotid artery stenosis Occlusion and stenosis of carotid artery without mention of cerebral infarction Subclavian artery stenosis, right Atherosclerosis of other specified arteries PAD (peripheral artery disease) Unspecified peripheral vascular disease Essential hypertension Unspecified essential hypertension Mixed hyperlipidemia documented in this encounter Care Teams Technical Sales Representative Relationship Specialty Start Date End Date Mikael Marshall DO [address] [place] [address] PCP - General 02/27/22 documented as of this encounter
--- OUTSIDE RECORDS SUMMARY | 2025-03-06 09:01 | XMS_ITS | Encounter Summary ---
Author Organization [facility] Address [address] [place] [address] Care Team Providers Care Life Skills Coordinator Volunteer Name Role Phone RolandoMikael Primary Care Provider [phone] Encounter Details Date Type Department Care Team (Late st Contact Info) Description 03/02/2025 Telephone [facility] Heart at [facility] [address] [place] [address] Andreina Delacruz MA Social History Tobacco Use Types Packs/Day Years [...] AM EDT documented as of this encounter Miscellaneous Notes * Telephone Encounter - Andreina Delacruz MA - 03/03/2025 3:48 PM EDT Spoke with patient and she agreed to sign paperwork for benefits investigation for Leqvio. I told her if her insurance won't cover that, we can look into Praluent. Repatha has become unaffordable forher the past year or so. * Telephone Encounter - Andreina Delacruz MA - 03/02/2025 9:58 AM EDT Images from the original note were not included. Regarding lab results from 02/23/2025: MD Andreina Oh MA Her LDL is 118 (target LDL <55). This is on crestor 40 and ezetimibe 10. She needs to add repatha or praluent or leqvio. Whatever can be covered by insurance. LM for patient to return my call to discuss options. documented in this encounter Plan of Treatment Upcoming Encounters Date Type Department Care Team (Late st Contact Info) Description 05/01/2025 9:00 AM EST Office Visit [facility] Heart at [facility] [address] [place] [address] Levi Becker MD [address] [place] [address] documented as of this encounter Visit Diagnoses Not on filedocumented in this encounter Care Teams Life Skills Coordinator Volunteer Relationship Specialty Start Date End Date Mikael Marshall DO [address] [facility] [place] [phone] PCP - General 02/27/22 documented as of this encounter
--- OUTSIDE RECORDS SUMMARY | 2025-03-06 09:01 | XMS_ITS | Patient Health Record ---
Author Organization [facility] [place] Address [address] [place] [address] Support Name Relationship Address Phone Jignesh Ulloa Emergency Contact Unknown Kalee Iqbal Guarantor Unknown [phone] Reason For Referral No Information Plan Of Treatment No Information Insurance Providers Payer Name Payer Address Payer Phone Subscriber Number Group Number Insured Name Patient Relationship to Insured Coverage Start Date Coverage End Date SELF PAY ON PATIENT [employer]OGRAPH[employer] Kalee Iqbal Self - patient is the insured 9
--- OUTSIDE RECORDS SUMMARY | 2025-03-06 09:01 | XMS_ITS | Clinical Summary ---
Author Organization [facility] Address [address] [place] [address] Care Team Providers Care Compensation Analyst Name Role Phone RolandoMikael Primary Care Provider [phone] Allergies No known active allergies Medications isosorbide mononitrate ER (Imdur) 120 mg 24 hr tabletIndications: Chest pain, unspecified type TAKE 1 TABLET BY MOUTH IN THE MORNING. GENERIC EQUIVALENT FOR IMDUR 90 tablet 3 5 Active rosuvastatin (Crestor) 40 mg tabletIndications: Coronary artery disease of [place] artery of [place] heart with stable angina pectoris,Mixed hyperlipidemia Take 1 tablet (40 mg) by mouth at bedtime. 90 tablet 3 5 026 Active clopidogrel (Plavix) 75 mg tabletIndications: Coronary artery disease of [place] artery of [place] heart with stable angina pectoris,Bilateral carotid artery stenosis Take 1 tablet (75 mg) by mouth once daily as directed. 90 tablet 3 5 026 Active amLODIPine (Norvasc) 2.5 mg tabletIndications: Essential hypertension Take 1 tablet (2.5 mg) by mouth in the morning. 90 tablet 3 5 026 Active ranolazine (Ranexa) 500 mg 12 hr tabletIndications: Coronary artery disease of [place] artery of [place] heart with stable angina pectoris Take 1 tablet (500 mg) by mouth in the morning and at bedtime. 180 tablet 3 5 026 Active ezetimibe (Zetia) 10 mg tabletIndications: Hyperlipidemia, unspecified hyperlipidemia type TAKE 1 TABLET BY MOUTH AT BEDTIME 90 tablet 3 5 Active metoprolol succinate XL (Toprol-XL) 50 mg 24 hr tabletIndications: Palpitations TAKE 1 TABLET BY MOUTH IN THE MORNING 90 tablet 3 5 Active Active Problems Problem Noted Date Diagnosed [...] carotid duplex ultrasound February 2021 done at [facility] showed mild right and moderate left [...] stable Coronary arteriosclerosis 02/27/2022 Overview (06/23/2022): [employer] CCS 2 angina , inferior ischemia and [...] Encounters Date Type Department Care Team Description 03/02/2025 Telephone [facility] [address] [place] [address] Andreina Delacruz MA 02/23/2025 9:00 AM EDT Follow-Up [address] [address] Levi Becker MD Coronary artery disease involving [place] coronary artery of [place] heart without angina pectoris (Primary Dx); Status post insertion of drug eluting coronary artery stent; Bilateral carotid artery stenosis; Subclavian artery stenosis, right; PAD (peripheral artery disease); Essential hypertension; Mixed hyperlipidemia 01/24/2025 Refill [facility] [address] [place] [address] Levi Becker MD Hyperlipidemia, unspecified hyperlipidemia type; Palpitations 12/25/2024 9:30 AM EDT - 12/25/2024 10:30 AM EDT Surgery [facility] Heart [facility] [address] [place] [address] Levi Becker MD Coronary angiography 12/25/2024 8:40 AM EDT - 12/25/2024 7:01 PM EDT Hospital Encounter [facility] Heart [facility] [place] [facility] [address] [place] [address] Levi Becker MD Coronary arteriosclerosis (Primary Dx); Abnormal stress test Discharge Disposition: Home or Self Care (01) 12/25/2024 Travel 12/19/2024 Orders Only [facility] [address] [place] [id number] ProviderNick MD 12/04/2024 Telephone [facility] [address] [place] [address] JaymeAndreina MA from Last 3 Months Family History Medical [...] AM EDT Temperature - - Respiratory Rate 16 12/25/2024 7:00 PM EDT Oxygen Saturation 97% 02/23/2025 8:53 AM EDT Inhaled Oxygen Concentration - - Weight 79.8 kg (176 lb) 02/23/2025 8:53 AM EDT Height 162.6 cm (5' 4 ) 02/23/2025 8:53 AM EDT Body Mass Index 30.21 02/23/2025 8:53 AM EDT Plan of Treatment Upcoming Encounters Date Type Department Care Team (Late st Contact Info) Description 05/01/2025 9:00 AM EST Office Visit [facility] [address] [place] [address] Levi Becker MD [address] [facility] [place] [address] Health Maintenance Due Date Last [...] Screening 12/23/2024 FIT-DNA 12/23/2024 12/23/2021 COVID-19 Vaccine (1 - 2023-2 5 season) 2025 Influenza Vaccine [...] this topic Medical Devices Implanted Type Area Load Tester Device Identifier Shelf Expiration Date Model / Serial / Lot Stent,Synergy Mr 2.50 X 12 - [id number] Implanted:Qty : 1 on 12/25/2024 by Levi Becker MD at [facility] Drug Eluting Stent Left: Coronary Hightower [id number] 06/25/2026 [id number] / / [id number] Procedures Procedure Name Priority Date/Time Associated Diagnosis [...] EDT CBC Routine 12/19/2024 10:05 AM EDT from Last 3 Months Results * (ABNORMAL) Activated clotting time (12/25/2024 4:29 PM EDT) Only the most recent of3 resultswithin the time period is included. [facility] Activated Clotting Time 171(H) 82 - 152 s 12/25/2024 4:29 PM EDT [facility] Blood Venous blood specimen / Unknown 12/25/2024 4:29 PM EDT 12/25/2024 4:29 PM EDT us Levi Becker MD LAB POINT OF CARE TE ST DOCKED DEVICE UNSOLICITED RESULTS Final Result [facility] ([facility]) [address] [place] [address] * (ABNORMAL) POCT activated clotting time manually [...] MUSE Atrial Rate 58 BPM GE MUSE AK Interval 162 ms GE MUSE QRS DURATION 162 ms GE MUSE QT Interval 460 ms GE MUSE QTC CALCULATION(BAZE TT) 451 ms GE MUSE P Burton 60 degrees GE MUSE R-Burton 17 degrees GE MUSE T Wave Burton 120 degrees GE MUSE 12/25/2024 11:2 9 [...] Levi Becker MD ECG ORDERABLES Final Result MARILYN HERNANDEZ * ARCH AORTAGRAM (12/25/2024 11:09 AM EDT) [...] informed consent. she was brought to the medical lab technologist in a fasting state. The groin area [...] ostium. Baseline JAIMIE flow was 3. A [employer] coronary guide wire was advanced to the [...] with filling of the distal vessel via [id number] collateral circulation Mildly elevated LVEDP No evidence [...] stress test [R94.39], Coronary artery disease involving [place] coronary artery of [place] heart with unstable angina pectoris ([facility]) [I25.110] us Levi Becker MD CV [...] informed consent. she was brought to the medical lab technologist in a fasting state. The groin area [...] ostium. Baseline JAIMIE flow was 3. A [employer] coronary guide wire was advanced to the [...] with filling of the distal vessel via [id number] collateral circulation Mildly elevated LVEDP No evidence [...] stress test [R94.39], Coronary artery disease involving [place] coronary artery of [place] heart with unstable angina pectoris ([facility]) [I25.110] Result [facility] Levi Becker MD CV CARDIAC CATH PROCEDURES F inal Result * CBC (12/19/2024 10:05 AM EDT) Blood Venous blood specimen / Unknown Historical Provider LAB BLOOD ORDERABLES Izabella l Result * Basic metabolic panel (12/19/2024 10:05 AM EDT) Blood Venous blood specimen / Unknown [facility] Provider LAB BLOOD ORDERABLES Izabella l Result from Last 3 Months Insurance [facility] Care Teams Compensation Analyst Relationship Specialty Start Date End Date Mikael Marshall DO [address] [place] [address] PCP - General 02/27/22
--- OUTSIDE RECORDS SUMMARY | 2025-03-06 09:04 | XMS_ITS | CCD ---
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 Other Start: 02-08-2023 Encounter for genera l adult medical examination without abnormal findings Mikael Marshall [facility] Start: 02-08-2023 Periodic preventive med est patient 40-64yrs Mikael Marshall [facility] Start: 08-08-2022 End: 08-08-2022 ambulatory Mikael Marshall Other [facility] [employer] Other Start: 08-08-2022 Office outpatient vi sit 25 minutes Mikael Marshall [facility] Start: 04-14-2022 End: 04-15-[address] MIKAEL MARSHALL Facility:[facility] Start: 04-12-2022 Encounter for genera l adult medical examination without abnormal findings DR MIKAEL MARSHALL [facility] Start: 04-08-2022 End: 04-09-[address] MIKAEL MARSHALL Facility:[facility] Start: 04-08-2022 End: 04-09-2022 Encounter for general adult medical examination without abnormal findings DR MIKAEL MARSHALL Facility:[facility] Start: 11-19-2021 End: 11-20-[address] TAYLA PLATA Facility:[facility] Start: 06-03-[address] TAYLA PLATA Fac ility:[facility] Start: 03-14-2021 End: 03-15-2021 ambulatory MIKAEL MARSHALL Facility:[facility] Plan of Treatment Date Care Activity Detail Author Comprehensive metabo lic 2000 panel - Serum or Plasma [facility] enter MG Breast - bilateral Screening [facility] Payers Date Payer Category Payer Private Health Insurance [id number] 1965 Unknown [id number] 1965 Unknown [id number] [id number] 1965 Unknown [id number] 1965 Unknown [id number] 1965 Unknown [id number] [id number] [id number] 1960 Self-pay 1960 Unknown [id number] Unknown [id number] Social History Date Type Detail Facility Sex Assigned At [employer] [facility] [employer] Other Start: 08-09-2023 Tobacco smoking status NHIS Smoker (finding) [facility] Start: 1965 Sex Assigned At Female [facility] Start: 08-15-2024 Sex Female (finding) [facility] Start: 08-09-2023 Tobacco smoking status NHIS Smokes tobacco daily (finding) [facility] NEGATED: Highlighted row [facility] Clinical Notes 08-08-2022 to 02-23-2025 Note Date & Type Note Facility 02-23-2025 Note [facility] Subjective Kalee Iqbal is a 59 y.o. year old female patient being seen for S/P PTCA stent. Patient states she feels good. 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 [facility] 12-25-2024 Note No associated orders from this encounter found during lookback period of 72 hours. 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 [facility] 02-08-2023 Evaluation note Encounter Date Diagnosis Assessment [...] achieve/maintain a normal BMI. Jan, Atherosclerosis of [place] arteries of extremities with intermittent claudication, bilateral [...] patient on monthly SBE and yearly mammograms. [employer] Other 03-21-2023 Evaluation note* Encounter Date Diagnosis [...] achieve/maintain a normal BMI. Jul, Atherosclerosis of [place] arteries of extremities with intermittent claudication, bilateral [...] in temperature or color. No claudication symptoms [employer] Other Evaluation note* Diagnosis Onset Date Resolution Status ASHD (arteriosclerotic heart disease) acute Chronic bronchitis acute Elevated cholesterol acute Hypertension acute Nicotine dependence acute Overweight acute Rotator cuff strain acute [facility] Work Phone: Evaluation note* Diagnosis Onset Date Resolution Status ASHD (arteriosclerotic heart disease) acute Chronic bronchitis acute Elevated cholesterol acute Hypertension acute Nicotine dependence acute Overweight acute Rotator cuff strain acute Wellness examination acute [facility] Work Phone: Evaluation note* Diagnosis Onset Date Resolution Status Admit Date ASHD (arteriosclerotic heart disease) acute August 15, 2024 8:21am Chronic bronchitis acute August 15, 2024 8:21am Elevated cholesterol acute Terrell 2024 8:21am Hypertension acute August 15, 2024 8:21am Nicotine dependence acute August 15, 2024 8:21am Overweight acute August 15 8:21am [facility] Work Phone: Evaluation note* Diagnosis Onset Date Resolution Status Admit Date ASHD (arteriosclerotic heart disease) acute February 20 8:29am Chronic bronchitis acute Octobe r 2024 8:29am Elevated cholesterol acute Octo 2024 8:29am Hypertension acute February 20, 2025 8:29am Nicotine dependence acute Octob er 2024 8:29am Overweight acute February 20, 2 025 8:29am Screening mammogram for breast cancer acute February 20 8:29am Wellness examination acute Febo 2024 8:29am Screening for colon cancer noneactiv e February 20, 2025 8:29am [facility] Work Phone: History general Narrative - Reported* [...] History ESWL Hospitalization History SEE SURGICAL HX [facility] [employer] Other Reason for referral (narrative)No reason for referral information [facility] Work Phone: Summary Purpose Family History No Family History [...] Visit Admit Date ASHD (arteriosclerotic heart disease) [facility] 2024 8:21am Chronic bronchitis August 15, [...] 29am Screening mammogram for breast cancer [place] 2024 8:29am Wellness examination February 20, 2025 8 :29am Screening for colon cancer February 20, 2025 8:29am Additional Source Comments INFORMATION SOURCE (unrecogn ized section and content) DATE CREATED AUTHOR 03/19/2021 [facility] DATE CREATED AUTHOR AUTHOR'S ORGANIZ ATION 04/20/2022 [facility] DATE CREATED AUTHOR AUTHOR'S ORGANIZ ATION 03/05/2025 [facility] REASON FOR VISIT (unrecogniz ed section and content) 6 MONTH FOLLOW UPWellness ex am Care Teams (unrecognized sec tion and content) Team Status: Active Member Role Status Dates Mikael Marshall , Primary Care Provider Active Team Status: Active Member Role Status Dates Mikael Marshall DO Primary Care Provider Active Start: December 19, 2024 Tayla Plata MD Attending Provider Active Start: December 19, 2024 Team Status: Inactive Member Role Status Dates Mikael Marshall DO Primary Care Provider Active Start: February 20, 2025 End: February 20, 2025 Mikael Marshall DO Attending Provider Active Sta rt: February 20, 2025 End: February 20, 2025 Team Status: Inactive Member Role Status Dates Mikael Marshall DO Primary Care Provide r, Attending Provider Active Start: August 10, 2023 End: August 10, 2023 Team Status: Inactive Member Role Status Dates Mikael Marshall , DO Primary Care Provide r, Attending Provider Active Start: February 15, 2024 End: February 15, 2024 Team Status: Inactive Member Role Status Dates Mikael Marshall , DO Primary Care Provide r, Attending [...] BE BASED ON THE PRIMARY CLINICAL RECORDS. [facility] [employer] provides no warranty or guarantee of the accuracy or completeness of information in this document.
--- NOTE | 2025-03-06 09:25 | MM_ITS ---
Patient Name: NIDIA RICHTER MR#: [id number] : 1965 Exam Date: 03/06/2025 Ordering Doctor: DR ADDIE MCCORMICK D.O. RADIOLOGY REPORT PROCEDURE: MM TOMOSYNTHESIS SCREENING BI COMPARISON: MM TOMOSYNTHESIS SCREENING BI, 07/25/2023. MG MAMM SCREEN 3D JAYLON CAD, 04/14/2022. MG MAMM SCREEN 3D JAYLON CAD, 03/29/2021. MAMMO JAYLON SCREEN, 08/24/2005. INDICATIONS: Screening Calculator Name NCI Breast Cancer Risk Assessment Tool 5 Year Breast Cancer Risk 1.00% Lifetime Breast Cancer Risk 5.30% Personal Breast Cancer No Personal Ovarian Cancer No Treatments None Family Cancers Father with lung cancer at age 64. LOCATION: [facility] BREAST COMPOSITION: There are scattered areas of fibroglandular density. FINDINGS: RIGHT BREAST: There is a 7 mm focal asymmetry of the medial aspect of the right breast 4.4 cm from the nipple at approximately the 3 o'clock position. LEFT BREAST: No significant suspicious finding. DIAGNOSTIC CATEGORY 0--INCOMPLETE: NEED ADDITIONAL IMAGING EVALUATION. RECOMMENDATIONS: ADDITIONAL MAMMOGRAPHIC VIEWS REQUIRED: RIGHT BREAST - spot compressed views of the right breast with ultrasound if necessary is recommended. Dictated by: Rigo Christie MD on 03/06/2025 at 12:20 Approved by: Rigo Christie MD on 03/06/2025 at 12:23
== END 2025-03-06 09:00 | disposition home or self-care (01) ==
LOC: MAMMO 08:59
PROVIDERS: PCP Internal Medicine; Visit Provider Internal Medicine
DX: Z12.31 Encounter for screening mammogram for malignant neoplasm of breast (principal); Z80.1 Family history of malignant neoplasm of trachea, bronchus and lung; R92.8 Other abnormal and inconclusive findings on diagnostic imaging of breast
CPT/HCPCS: 77063; 77067